=== PATIENT | female | born 1980 | race Caucasian/White ===

== ENCOUNTER → 2018-05-06 15:24 | Outpatient (CLI) | payer OTHER, SELFPAY ==
[2018-05-06 16:03] LABS: Add Manual Diff / Slide Review NO; Basophils Percent Auto 1.2 % (0-2); Hematocrit 38.4 % (36-46); Hemoglobin 13.1 g/dL (12.0-16.0); Lymphocytes Percent Auto 47.1 % (25-40); Mean Corpuscular Hemoglobin 31.4 PG (26-34); Mean Corpuscular Volume 92.2 fL (80-100); Monocytes Percent Auto 10.2 % (3-14); Neutrophils Absolute Auto 2400 /uL (3000-5900); Neutrophils Percent Auto 35.5 % (50-75); Platelet Count 313 X10^3/uL (150-400); Red Blood Cell Count 4.17 X10^6/uL (4.0-5.2); Red Cell Distribution Width 12.2 % (11.6-14.8); White Blood Cell Count 6.7 X10^3/uL (4.5-11.0)
[2018-05-06 16:42] LABS: BUN Creatinine Ratio 23.3 (6-22); Blood Urea Nitrogen 14 mg/dL (7-17); Calcium 9.2 mg/dL (8.4-10.2); Carbon Dioxide 32 mmol/L (22-32); Chloride 103 mmol/L (98-107); Estimated Glomerular Filt Rate > 60.0 mL/min (>60); Glucose 87 mg/dL (70-100); HEMOLYSIS < 15 (0-50); Potassium 4.1 mmol/L (3.4-5.1); Sodium 143 mmol/L (137-145)
[2018-05-06 17:11] LABS: TSH w/ Reflex to FT4 1.41 uIU/mL (0.47-4.68)
== END ==
PROVIDERS: PCP Internal Medicine; Visit Provider Nurse Practitioner Family
DX: L65.9 Nonscarring hair loss, unspecified (principal)
CPT/HCPCS: 36415; 80048; 84443; 85025

== ENCOUNTER → 2018-07-28 10:40 | Outpatient (CLI) | payer OTHER, SELFPAY ==
[2018-07-28 10:44] LABS: Bacteria Urine None Seen
[2018-07-28 11:46] LABS: Add Manual Diff / Slide Review NO; Basophils Percent Auto 1.1 % (0-2); Eosinophils Percent Auto 3.6 % (2-4); Hematocrit 38.8 % (36-46); Lymphocytes Percent Auto 44.3 % (25-40); Mean Corpuscular HGB Conc 33.6 % (30-36); Mean Corpuscular Hemoglobin 31.2 PG (26-34); Mean Corpuscular Volume 92.7 fL (80-100); Monocytes Percent Auto 9.4 % (3-14); Neutrophils Absolute Auto 2400 /uL (3000-5900); Neutrophils Percent Auto 41.6 % (50-75); Platelet Count 288 X10^3/uL (150-400); Red Blood Cell Count 4.19 X10^6/uL (4.0-5.2); Red Cell Distribution Width 11.9 % (11.6-14.8); White Blood Cell Count 5.7 X10^3/uL (4.5-11.0)
[2018-07-28 12:48] LABS: HCG Quantitative /Beta subunit 4291.3 mIU/mL
[2018-07-28 13:19] LABS: Appearance Urine UA CLEAR; Bilirubin Urine UA NEGATIVE (NEGATIVE); Color Urine UA YELLOW; Glucose Urine UA NEGATIVE (Normal); Ketones Urine UA NEGATIVE (NEGATIVE); Leukocyte Esterase Urine UA NEGATIVE (NEGATIVE); Nitrite Urine UA NEGATIVE (Negative); Occult Blood Urine UA TRACE-LYSED (Negative); Protein Urine UA NEGATIVE (Negative); Urobilinogen Urine UA 0.2 E.U./dL (0.2)
[2018-07-28 13:51] LABS: Amorphous Sediment Urine 1+; Calcium Oxalate Crystals Urine Few; Culture Indicated Urine Cult Not Indicated; RBC Urine 1-5/HPF (0-5/HPF); Squamous Epithelial Cell Urine 1-5 /HPF; WBC Urine 0-1/HPF (0-5/HPF)
== END ==
PROVIDERS: Nurse Practitioner Family; PCP Internal Medicine; Visit Provider Obstetrics & Gynecology
DX: N91.2 Amenorrhea, unspecified (principal); R30.0 Dysuria; D70.9 Neutropenia, unspecified
CPT/HCPCS: 36415; 81001; 84702; 85025

== ENCOUNTER → 2018-07-30 14:48 | Outpatient (CLI) | payer OTHER, SELFPAY ==
[2018-07-30 15:57] LABS: HCG Quantitative /Beta subunit 11451 mIU/mL
[2018-07-30 16:15] LABS: Ferritin 54.7 ng/mL (6.27-137)
== END ==
PROVIDERS: PCP Internal Medicine; Visit Provider Obstetrics & Gynecology
DX: L65.9 Nonscarring hair loss, unspecified (principal); N91.2 Amenorrhea, unspecified
CPT/HCPCS: 36415; 82728; 84702

== ENCOUNTER → 2018-08-18 16:12 | Outpatient (CLI) | payer OTHER, SELFPAY ==
[2018-08-18 17:02] LABS: Add Manual Diff / Slide Review NO; Basophils Percent Auto 0.5 % (0-2); Eosinophils Percent Auto 3.7 % (2-4); Hematocrit 38.1 % (36-46); Hemoglobin 13.2 g/dL (12.0-16.0); Lymphocytes Percent Auto 32.3 % (25-40); Mean Corpuscular HGB Conc 34.7 % (30-36); Mean Corpuscular Hemoglobin 31.6 PG (26-34); Mean Corpuscular Volume 91.1 fL (80-100); Monocytes Percent Auto 8.4 % (3-14); Neutrophils Absolute Auto 5700 /uL (3000-5900); Neutrophils Percent Auto 55.1 % (50-75); Platelet Count 328 X10^3/uL (150-400); Red Blood Cell Count 4.18 X10^6/uL (4.0-5.2); White Blood Cell Count 10.3 X10^3/uL (4.5-11.0)
[2018-08-18 17:48] LABS: Appearance Urine UA CLEAR; Bilirubin Urine UA NEGATIVE (NEGATIVE); Color Urine UA YELLOW; Glucose Urine UA NEGATIVE (Normal); Ketones Urine UA NEGATIVE (NEGATIVE); Leukocyte Esterase Urine UA NEGATIVE (NEGATIVE); Nitrite Urine UA NEGATIVE (Negative); Occult Blood Urine UA TRACE-LYSED (Negative); Protein Urine UA NEGATIVE (Negative); Urobilinogen Urine UA 0.2 E.U./dL (0.2); pH Urine UA 6.5 (4.5-8.0)
[2018-08-18 18:57] LABS: Hepatitis B Surface Antigen NEGATIVE s/c (NEGATIVE); Rubella Antibody IgG 64.7 IU/mL (>15)
[2018-08-18 19:07] LABS: HIV 1 and 2 Antibody NEGATIVE (NEGATIVE); Hep C Virus Ab w/Reflex Quant NEGATIVE s/c (NEGATIVE)
[2018-08-20 13:02] LABS: RPR Screen Nonreactive (Nonreactive)
[2018-08-20 14:17] LABS: HSV 2 IGG AB < 0.90 index (< 0.90); HSV1IGG < 0.90 index (< 0.90)
== END ==
PROVIDERS: PCP Internal Medicine; Visit Provider Obstetrics & Gynecology
DX: Z34.91 Encounter for supervision of normal pregnancy, unspecified, first trimester (principal)
CPT/HCPCS: 36415; 80055; 81003; 86695; 86696; 86703; 86787; 86803; 86850; 86900; 86901; 87086

== ENCOUNTER → 2018-09-03 16:49 | Outpatient (CLI) | payer OTHER, SELFPAY ==
[2018-09-16 11:09] LABS: Informaseq SEE SEPERATE REPORT
== END ==
PROVIDERS: PCP Internal Medicine; Visit Provider Obstetrics & Gynecology
DX: O09.529 Supervision of elderly multigravida, unspecified trimester (principal); O09.519 Supervision of elderly primigravida, unspecified trimester
CPT/HCPCS: 81507

== ENCOUNTER → 2018-10-29 12:54 | Outpatient (CLI) | payer OTHER, SELFPAY ==
[2018-11-05 11:25] LABS: AFP, Serum 55.6 ng/mL; Calc Gestational Age 18; Est Date Determined by US; Maternal Weight 128 lbs; Number of Fetuses NOT GIVEN; Prev Pregnancies Down Syndrome NOT GIVEN
== END ==
PROVIDERS: PCP Internal Medicine; Visit Provider Obstetrics & Gynecology
DX: Z34.02 Encounter for supervision of normal first pregnancy, second trimester (principal)
CPT/HCPCS: 36415; 82105

== ENCOUNTER → 2018-11-17 15:16 | Outpatient (CLI) | payer OTHER, SELFPAY ==
--- NOTE | 2018-11-17 15:17 | DI.US.S_ITS ---
PROCEDURE: US OB >= 14 WEEKS FETUS INDICATIONS: ANATOMY SURVEY OUTSIDE/PRIOR DATING DATA: Last menstrual period (LMP): Unknown. LMP-based estimated date of delivery (ARJUN): Unknown. First dating scan (date and location): 09/03/18. Estimated date of delivery (ARJUN) from first dating scan: 03/31/19. TECHNIQUE: Real-time scanning was performed of the fetus, with image documentation and biometric measurements. Endovaginal scanning: Not performed COMPARISON: [facility], , OB <= 14 WEEKS FETUS, 09/03/2018, 16:22. FINDINGS: General: A single living intrauterine gestation is present. Presentation: Breech. Placenta: Placental position is anterior, without previa. Amniotic fluid index: 14.7 cm, normal range is 5-24 cm. heart rate: 143 beats per minute. Maternal cervical canal: 3.8 cm long. Normal lower limit is 2.5 cm. biometrics: Biparietal diameter: 5.0 cm, 21 weeks zero days Head circumference: 18.6 cm, 20 weeks 6 days Abdominal circumference: 15.3 cm, 20 weeks 3 days Femur length: 3.4 cm, 20 weeks 6 days Estimated gestational age from initial scan: 20 weeks 6 days Composite gestational age from present scan: 20 weeks 6 days Estimated weight and percentile: 370 g, 35th percentile Measurement variability for biometric dating: +/- 7 days from 14 weeks to 15 weeks 6 days gestation, +/- 10 days from 16 weeks to 21 weeks 6 days gestation, +/- 2 weeks from 22 weeks to 27 weeks 6 days gestation, +/- 3 weeks for 28 weeks gestation or later. weight reference: 4500 g or EFW >90/95% is considered macrosomia or large for gestational age. EFW <10% is small for gestational age. EFW 5% or less is considered intra-uterine growth restriction. Anatomic survey: Neuro: Ventricles are non-dilated at less than 10 mm. Cisterna magna is normal at 3-11 mm. Cerebellum is normal in size and morphology. Nuchal skin fold: Normal at less than 6 mm between 14-21 weeks gestational age. Face: Nose and lips, facial profile are normal. Spine: No evidence for spina bifida. Heart: 4-chambered heart is present, with normal ventricular outflow tracts. Diaphragm: Diaphragm is intact. Stomach: Left-sided stomach is present. Kidneys: No hydronephrosis. Normal is less than 5 mm in 2nd trimester, less than 7 mm in 3rd trimester. Cord: 3-vessel cord has orthotopic insertion. Bladder: Normal in size. Extremities: All 4 extremities identified. IMPRESSION: Single living intrauterine fetus in breech presentation demonstrating expected interval growth. Normal anatomic survey. Dictated by: Cristino Vazquez M.D. on 11/17/2018 at 17:42 Approved by: Cristino Vazquez M.D. on 11/17/2018 at 17:45
== END ==
PROVIDERS: Family Provider Student in an Organized Health Care Education/Training Program; PCP Internal Medicine; Visit Provider Obstetrics & Gynecology
DX: Z34.02 Encounter for supervision of normal first pregnancy, second trimester (principal); Z3A.20 20 weeks gestation of pregnancy
CPT/HCPCS: 76811

== ENCOUNTER → 2018-12-19 16:28 | Outpatient (CLI) | payer OTHER, SELFPAY ==
[2018-12-19 18:01] LABS: Hematocrit 34.4 % (36-46); Hemoglobin 11.8 g/dL (12.0-16.0)
[2018-12-19 18:21] LABS: GTT (PREG) 1 Hour PP 50gm Dose 131 mg/dL (76-139)
== END ==
PROVIDERS: Family Provider Student in an Organized Health Care Education/Training Program; PCP Student in an Organized Health Care Education/Training Program; Visit Provider Obstetrics & Gynecology
DX: Z34.02 Encounter for supervision of normal first pregnancy, second trimester (principal)
CPT/HCPCS: 36415; 82950; 85014; 85018

== ENCOUNTER → 2019-02-26 15:49 | Outpatient (CLI) | payer BC, SELFPAY ==
[2019-02-27 13:57] LABS: Strep Grp B PCR NEG for Grp B Strep
== END ==
PROVIDERS: Family Provider Student in an Organized Health Care Education/Training Program; PCP Student in an Organized Health Care Education/Training Program; Visit Provider Obstetrics & Gynecology
DX: Z34.03 Encounter for supervision of normal first pregnancy, third trimester (principal); Z3A.35 35 weeks gestation of pregnancy
CPT/HCPCS: 87653

== ENCOUNTER → 2019-04-03 16:56 | Outpatient (CLI) | payer BC, SELFPAY | LOC: LAB 17:01 → OB 04-07 10:28 | PROVIDERS: Family Provider Student in an Organized Health Care Education/Training Program; PCP Student in an Organized Health Care Education/Training Program; Visit Provider Student in an Organized Health Care Education/Training Program | DX: O48.0 Post-term pregnancy (principal); Z3A.40 40 weeks gestation of pregnancy | CPT/HCPCS: 59025; G0378 ==

== ENCOUNTER 2019-04-05 23:26 | Outpatient (CLI) | payer BC, SELFPAY ==
[2019-04-06 01:34] VITALS: TEMP 37.1
[2019-04-06] MEDS: MORPHINE 4 MG/ML INJ IM (01:34)
== END 2019-04-06 01:40 | disposition home or self-care (01) ==
LOC: OB 04-07 10:30
PROVIDERS: Family Provider Student in an Organized Health Care Education/Training Program; PCP Student in an Organized Health Care Education/Training Program; Visit Provider Specialist
DX: O48.0 Post-term pregnancy (principal); Z3A.40 40 weeks gestation of pregnancy
CPT/HCPCS: 59025; 96372; G0378; G0379; J2270

== ENCOUNTER 2019-04-06 05:17 | Inpatient (IN) | payer BC, SELFPAY ==
[2019-04-06] MEDS: LACTATED RINGERS 1,000 ML 100 ML IV ×2 (05:30→09:50)
[2019-04-06 05:50] LABS: Add Manual Diff / Slide Review NO; Basophils Absolute Auto 100 /uL (0-100); Basophils Percent Auto 0.6 % (0-2); Eosinophils Absolute Auto 0 /uL (0-450); Eosinophils Percent Auto 0.1 % (2-4); Hematocrit 36.4 % (36-46); Hemoglobin 12.5 g/dL (12.0-16.0); Lymphocytes Absolute Auto 2100 /uL (1100-4500); Lymphocytes Percent Auto 14.3 % (25-40); Mean Corpuscular HGB Conc 34.3 % (30-36); Mean Corpuscular Hemoglobin 30.7 PG (26-34); Mean Corpuscular Volume 89.7 fL (80-100); Monocytes Absolute Auto 700 /uL (0-900); Monocytes Percent Auto 4.9 % (3-14); Neutrophils Absolute Auto 11500 /uL (1500-7000); Neutrophils Percent Auto 80.1 % (50-75); Platelet Count 273 X10^3/uL (150-400); Red Blood Cell Count 4.05 X10^6/uL (4.0-5.2); White Blood Cell Count 14.4 X10^3/uL (4.5-11.0)
[2019-04-06 08:18] VITALS: BP 118/70
--- NOTE | 2019-04-06 17:55 | P.HPOB_ITS ---
OB HPI Date/Time Date of admission: 04/06/19 Date Patient Seen: 04/06/19 Time Patient Seen: 07:00 History of Present Condition Chief complaint: Labor & Delivery : 1 Para: 0 Estimated Date of Delivery: 03/31/19 Estimated Gestational Age (weeks): 40+6 Narrative: Malina Barry is a 38 year old female 1 para 0 at 40 and 6 7th weeks gestation who presented in active labor History of Present care: good care, initiated at week # (10), number of visits (12) and pounds weight gain (32) Dating criteria: LMP confirmed by 1st trimester US Ultrasounds: normal 1st trimester US and normal mid trimester US Obstetrical complications: none Medical complications: none Preadmission Labs Blood type: O (+) positive -: Antibody screen: negative, GBS status: negative, HBsAG: negative, HIV: negative, HSV 1: negative, HSV 2: negative and RPR/VDLR: negative -: Chlamydia screen: not detected and Gonorrhea screen: not detected -: Rubella: immune and Varicella: immune HCT: 34.4 HCAB: negative PAP: Normal Cell-free DNA: Normal male Urine: Mixed 1 hr GTT: 131 Evaluation Evaluation Baseline heart rate: 125 Variability: Moderate (11-25) monitor accelerations: Present monitor decelerations: Absent Contraction Frequency (minutes): 3 Uterine Contraction Intensity: Strong/Firm Category of Tracing: I Cervical dilation (cm): 5 Cervical effacement (%): 100 station: -1 Laboratory results: Laboratory Tests 04/06/19 04/06/19 05:30 05:30 WBC 14.4 H RBC 4.05 Hgb 12.5 Hct 36.4 MCV 89.7 MCH 30.7 MCHC 34.3 RDW 13.0 Plt Count 273 Neut % (Auto) 80.1 H Lymph % (Auto) 14.3 L [place] % (Auto) 4.9 Eos % (Auto) 0.1 L Baso % (Auto) 0.6 Neut # (Auto) 05458 H Lymph # (Auto) 2100 [place] # (Auto) 700 Eos # (Auto) 0 Baso # (Auto) 100 Blood Type O Positive Antibody Screen Negative PFSH Social History Smoking Status: Never smoker Meds Home Medications Medication Instructions Recorded Confirmed Type Double Electric Breast Pump #1 each 03/13/19 04/06/19 Rx Allergies Allergy/AdvReac Type Severity Reaction Status Date / Time hazelnut Allergy Mild Swelling Verified 04/06/19 06:05 of Lip/Tongue/Throat nitrofurantoin Allergy Mild rash Verified 04/06/19 06:02 [From MACROBID] ciprofloxacin [From CIPRO] Allergy Unknown Verified 04/06/19 06:03 Exam Vital Signs (past 8 hours): Generally: Patient comfortable with epidural Fundal height: 40 cm Estimated weight: 7-1/2 to 8 lb Lungs: Clear to auscultation bilaterally Cardiovascular: Regular rate and rhythm Abdomen: No scars Extremities: Trace edema Objective Labs Result Diagrams: 04/06/19 05:30 Labs: Laboratory Results - last 24 hr 04/06/19 04/06/19 05:30 05:30 WBC 14.4 H RBC 4.05 Hgb 12.5 Hct 36.4 MCV 89.7 MCH 30.7 MCHC 34.3 RDW 13.0 Plt Count 273 Neut % (Auto) 80.1 H Lymph % (Auto) 14.3 L [place] % (Auto) 4.9 Eos % (Auto) 0.1 L Baso % (Auto) 0.6 Neut # (Auto) 19825 H Lymph # (Auto) 2100 [place] # (Auto) 700 Eos # (Auto) 0 Baso # (Auto) 100 Blood Type O Positive Antibody Screen Negative Assessment and Plan Assessment and Plan Assessment and Plan narrative: Assessment: 38-year-old 1 para 0 at 40 and 6 7th weeks gestation in active labor with an epidural for pain management Plan: Expected management to spontaneous vaginal delivery Artificial rupture of membranes when able Time Spent with Patient Total time spent with greater than 50% in coordination of care (as documented) at patient's floor/unit and/or counseling patient:: 15-24 minutes
--- NOTE | 2019-04-06 17:55 | PM.OBPRVD ---
Events: Meconium Stained Fluid (Moderate) Delivery date: 04/06/19 Intrapartal events: Prolonged 2nd Stage > 2.5 hours Cervical ripening method: none Induction method: none Delivery monitor: external FHT and external uterine Route of delivery: vacuum extraction Indication for instrumentation: other (Prolonged 2nd stage) Episiotomy description: None L&D Laceration Description: Perineal - 1st Degree and Superficial Delivery repair: chromic Estimated blood loss (mL): 150 Anesthesia type: Epidural Complications: None Narrative: Patient complete and pushed for 3 hours and 40 minutes. At 2:41 p.m., a live male infant was delivered with vacuum assistance over an intact perineum. A nuchal cord x1 was reduced on the perineum. The remainder of the body delivered without difficulty and was placed on mom's abdomen. After the cord stopped pulsing, the cord was double clamped and cut. The placenta delivered intact with a 3 vessel cord at 3:00 p.m.. The fundus was massaged to firm. 10 units of IM Pitocin was given. A right superficial labial laceration was repaired with 400 chromic with running interlocking suture. A first-degree perineal laceration was repaired with 2 0 chromic in the usual fashion. Hemostasis was achieved. Estimated blood loss 150 cc. Apgars 8 at 1 minute and 9 at 5 minutes. Weight 8 lb 2 oz. Epidural analgesia. . Mom and infant stable to recovery. Plan for aftercare: To routine care
[2019-04-06] MEDS: IBUPROFEN 600 MG TABLET PO (18:10)
[2019-04-06] MEDS: LANOLIN OINT 7 GM 1 APPLIC TOP (20:30)
[2019-04-06] MEDS: DERMOPLAST SPRAY 20% 60 ML 1 SPRAY TOP (20:31)
[2019-04-07] MEDS: IBUPROFEN 600 MG TABLET PO ×2 (03:04→10:28)
[2019-04-07 06:50] LABS: Hematocrit 30.1 % (36-46); Hemoglobin 10.1 g/dL (12.0-16.0)
[2019-04-07] MEDS: DOCUSATE 250 MG CAPSULE PO (10:29)
[2019-04-07 14:02] VITALS: BP 118/70; PULSE 76; RESP 16; TEMP 36.7
[2019-04-07 18:09] VITALS: BP 118/70; PULSE 76; RESP 16; TEMP 36.7
--- NOTE | 2019-04-07 18:09 | P.DS_ITS ---
History of Present Illness Date Patient Seen: 04/07/19 Time Patient Seen: 13:30 Chief complaint: Labor & Delivery Narrative: Patient is a 38-year-old 1 para 1 day # 1 status post vacuum assisted vaginal delivery. going well. Bleeding tapering. Pain well controlled with ibuprofen. Discharge Providers Date of admission: 04/06/19 05:17 Discharge Date: 04/07/19 Primary care physician: Emerson Marquez MD Consults: 04/06/19 15:52 Consult to Drug Regulatory Affairs Specialist Routine Comment: Discharge provider: Merline Sanchez MD Summary Discharge Diagnosis: 40 weeks gestation Vacuum assisted vaginal delivery Hospital Course: Patient is a 38-year-old 1 para 1 who presented in active labor. She progressed and received an epidural for pain management. She had a vacuum assisted delivery due to deep variable decelerations with pushing. Her course was unremarkable and she was discharged home on day # 1. Status at Discharge Cognitive/behavioral status at discharge: oriented Functional status at discharge: independent ambulation Overall status at discharge: patient is progressing back to baseline Time Spent with Patient Less than 30 minutes Exam Vital Signs (past 8 hours): - 04/07/19 14:02 Temperature 98.1 F Pulse Rate 76 Respiratory Rate 16 Blood Pressure 118/70 Narrative Exam Narrative: Generally: Patient is sitting up in bed, holding infant Fundus: Firm at U -1 Extremities: Negative Homans, trace edema Objective Labs Result Diagrams: 04/07/19 06:36 Labs: Laboratory Results - last 24 hr 04/07/19 06:36 Hgb 10.1 L Hct 30.1 L Discharge Plan Discharge Plan Patient Disposition: Home Discharge comment: Call with fever, chills or bleeding vaginally more than a pad in an hour Discharge Med Rec/Prescriptions Prescriptions: Continued Double Electric Breast Pump .ROUTE .MEDSUPPLY Qty: 1 RF: 0 Follow up/Referrals: Merline Sanchez MD [Physician] - 6 Weeks Provider Discharge Instructions Diet: Regular Activity: No intercourse Skin/Wound/Dressing Care Report to your healthcare provider any signs of infection, such as:: chills, fever, increased pain and unusual drainage Visit Report/Discharge Packet Instructions: DI for Labor and Delivery, Vaginal Discharge Data Primary Care Provider: Emerson Marquez Attending Provider: Merline Sanchez Admit Date/Time: 04/06/19 05:17
== END 2019-04-07 17:50 | disposition home or self-care (01) | DRG 807 ==
PROVIDERS: Admitting Provider Obstetrics & Gynecology; Family Provider Student in an Organized Health Care Education/Training Program; PCP Student in an Organized Health Care Education/Training Program; Visit Provider Obstetrics & Gynecology
DX: O69.81X0 Labor and delivery complicated by cord around neck, without compression, not applicable or unspecified (principal); Z37.0 Single live birth; O70.0 First degree perineal laceration during delivery; Z3A.40 40 weeks gestation of pregnancy; O77.0 Labor and delivery complicated by meconium in amniotic fluid
CPT/HCPCS: 01967; 36415; 59050; 59400; 76815; 85014; 85018; 85025; 86850; 86900; 86901; G0379

== ENCOUNTER → 2020-07-08 09:44 | Outpatient (CLI) | payer BC, SELFPAY ==
[2020-07-08 10:28] LABS: Add Manual Diff / Slide Review NO; Basophils Absolute Auto 100 /uL (0-100); Basophils Percent Auto 0.5 % (0-2); Eosinophils Absolute Auto 300 /uL (0-450); Eosinophils Percent Auto 2.6 % (2-4); Hematocrit 38.5 % (36-46); Lymphocytes Absolute Auto 2600 /uL (1100-4500); Lymphocytes Percent Auto 25.7 % (25-40); Mean Corpuscular HGB Conc 33.7 % (30-36); Mean Corpuscular Volume 92.1 fL (80-100); Monocytes Absolute Auto 800 /uL (0-900); Monocytes Percent Auto 7.7 % (3-14); Neutrophils Absolute Auto 6400 /uL (1500-7000); Neutrophils Percent Auto 63.5 % (50-75); Platelet Count 368 X10^3/uL (150-400); Red Blood Cell Count 4.18 X10^6/uL (4.0-5.2); Red Cell Distribution Width 12.3 % (11.6-14.8); White Blood Cell Count 10.1 X10^3/uL (4.5-11.0)
[2020-07-08 11:44] LABS: Appearance Urine UA CLEAR; Bilirubin Urine UA NEGATIVE (NEGATIVE); Color Urine UA YELLOW; Glucose Urine UA NEGATIVE (Negative); Ketones Urine UA NEGATIVE (NEGATIVE); Leukocyte Esterase Urine UA NEGATIVE (NEGATIVE); Nitrite Urine UA NEGATIVE (Negative); Occult Blood Urine UA TRACE-INTACT (Negative); Protein Urine UA NEGATIVE (Negative); Urobilinogen Urine UA 0.2 E.U./dL (0.2); pH Urine UA 6.5 (4.5-8.0)
[2020-07-08 15:52] LABS: Hepatitis B Surface Antigen NEGATIVE s/c (NEGATIVE); Rubella Antibody IgG 47.4 IU/mL (>15)
[2020-07-08 16:08] LABS: HIV 1 & 2 Ab/Ag 4th Gen Combo NEGATIVE (NEGATIVE); Hep C Virus Ab w/Reflex Quant NEGATIVE s/c (NEGATIVE)
[2020-07-09 07:18] LABS: RPR Screen Non Reactive (Non Reactive); Varicella IgG Antibody >4000 index (Immune >165)
== END ==
PROVIDERS: Family Provider Student in an Organized Health Care Education/Training Program; PCP Student in an Organized Health Care Education/Training Program; Referring Provider Obstetrics & Gynecology; Visit Provider Obstetrics & Gynecology
DX: O09.521 Supervision of elderly multigravida, first trimester (principal); Z36.0 Encounter for antenatal screening for chromosomal anomalies
CPT/HCPCS: 36415; 80055; 81003; 81420; 86787; 86803; 86850; 86900; 86901; 87077; 87086; 87389

== ENCOUNTER → 2020-07-20 15:37 | Outpatient (CLI) | payer BC, SELFPAY ==
[2020-07-20 21:18] LABS: Urine N gonorrhoeae NOT DETECTED
[2020-07-20 21:19] LABS: Urine Chlamydia NOT DETECTED
== END ==
PROVIDERS: Family Provider Student in an Organized Health Care Education/Training Program; PCP Student in an Organized Health Care Education/Training Program; Visit Provider Obstetrics & Gynecology
DX: Z34.81 Encounter for supervision of other normal pregnancy, first trimester (principal); Z3A.11 11 weeks gestation of pregnancy
CPT/HCPCS: 87491; 87591

== ENCOUNTER → 2020-08-17 14:56 | Outpatient (CLI) | payer BC, SELFPAY ==
[2020-08-20 20:07] LABS: AFP Value 35.1 ng/mL (.); Gest Age on Col Date 23.9 weeks (.); Gestational Age Ultrasound (.); Insulin Dep Diabetes No (.); OSBR Risk 1IN 10000 (.); Results Report (.); Test Results *Screen Negative* (.)
== END ==
PROVIDERS: Family Provider Student in an Organized Health Care Education/Training Program; PCP Student in an Organized Health Care Education/Training Program; Referring Provider Obstetrics & Gynecology; Visit Provider Obstetrics & Gynecology
DX: Z34.82 Encounter for supervision of other normal pregnancy, second trimester (principal); Z3A.16 16 weeks gestation of pregnancy
CPT/HCPCS: 36415; 82105

== ENCOUNTER → 2020-09-15 14:32 | Outpatient (CLI) | payer BC, SELFPAY ==
--- NOTE | 2020-09-15 14:33 | DI.US.S_ITS ---
PROCEDURE: US OB >= 14 WEEKS FETUS INDICATIONS: Anatomy scan OUTSIDE/PRIOR DATING DATA: Last menstrual period (LMP): 04/25/20 . LMP-based estimated date of delivery (ARJUN): 01/30/21 . First dating scan (date and location): 06/22/20, by Dr. Sanchez . Estimated date of delivery (ARJUN) from first dating scan: 02/04/21 +/-5 days . TECHNIQUE: Real-time scanning was performed of the fetus, with image documentation and biometric measurements. Endovaginal scanning: Not needed. COMPARISON: [facility], , OB >= 14 WEEKS FETUS, 04/06/2019, 10:45. [facility], , OB >= 14 WEEKS FETUS, 04/03/2019, 16:31. FINDINGS: General: A single living intrauterine gestation is present. Presentation: Breech. Placenta: Placental position is posterior , without previa. Amniotic fluid index: 11.0 cm, normal range is 5-24 cm. heart rate: 140 beats per minute. Maternal cervical canal: 4.6 cm long. Normal lower limit is 2.5 cm. biometrics: Biparietal diameter: 4.8 cm, 20 weeks 3 days Head circumference: 18.1 cm, 20 weeks 4 days Abdominal circumference: 15.4 cm, 20 weeks 4 days Femur length: 3.7 cm, 21 weeks 4 days. Estimated gestational age from initial scan: 19 weeks 5 days Composite gestational age from present scan: 20 weeks 6 days Estimated weight and percentile: 392 g, 98th percentile Measurement variability for biometric dating: +/- 7 days from 14 weeks to 15 weeks 6 days gestation, +/- 10 days from 16 weeks to 21 weeks 6 days gestation, +/- 2 weeks from 22 weeks to 27 weeks 6 days gestation, +/- 3 weeks for 28 weeks gestation or later. weight reference: 4500 g or EFW >90/95% is considered macrosomia or large for gestational age. EFW <10% is small for gestational age. EFW 5% or less is considered intra-uterine growth restriction. Anatomic survey: Neuro: Ventricles are non-dilated at less than 10 mm. Cisterna magna is normal at 3-11 mm. Cerebellum is normal in size and morphology. Nuchal skin fold: Normal at less than 6 mm between 14-21 weeks gestational age. Face: Nose and lips, facial profile are normal. Spine: No evidence for spina bifida. Heart: 4-chambered heart is present, with normal ventricular outflow tracts. Diaphragm: Diaphragm is intact. Stomach: Left-sided stomach is present. Kidneys: No hydronephrosis. Normal is less than 5 mm in 2nd trimester, less than 7 mm in 3rd trimester. Cord: 3-vessel cord has orthotopic insertion. Bladder: Normal in size. Extremities: All 4 extremities identified. IMPRESSION: Single living intrauterine gestation with normal survey of anatomy and the delivery date is projected to be centered on 02/04/21, +/-5 days, based on the 1st OB ultrasound performed by Dr. Sanchez. Note is made that the current weight is at the upper 98th percentile, with a significant variability based on the early measurements at this time. Follow-up for abnormal weight is recommended in approximately 3 weeks to include biometry. Early macrosomia may be present. Dictated by: Chris Patel M.D. on 09/15/2020 at 17:06 Approved by: Chris Patel M.D. on 09/15/2020 at 17:10
== END ==
PROVIDERS: Family Provider Student in an Organized Health Care Education/Training Program; PCP Student in an Organized Health Care Education/Training Program; Referring Provider Obstetrics & Gynecology; Visit Provider Obstetrics & Gynecology
DX: Z34.82 Encounter for supervision of other normal pregnancy, second trimester (principal); Z3A.20 20 weeks gestation of pregnancy
CPT/HCPCS: 76811

== ENCOUNTER → 2020-09-19 15:58 | Outpatient (CLI) | payer BC, SELFPAY ==
[2020-09-19 16:46] LABS: Add Manual Diff / Slide Review NO; Basophils Absolute Auto 100 /uL (0-100); Basophils Percent Auto 0.7 % (0-2); Eosinophils Absolute Auto 300 /uL (0-450); Eosinophils Percent Auto 3.2 % (2-4); Hematocrit 37.6 % (36-46); Hemoglobin 12.4 g/dL (12.0-16.0); Lymphocytes Absolute Auto 2300 /uL (1100-4500); Lymphocytes Percent Auto 23.5 % (25-40); Mean Corpuscular HGB Conc 32.9 % (30-36); Mean Corpuscular Hemoglobin 30.7 PG (26-34); Mean Corpuscular Volume 93.2 fL (80-100); Monocytes Absolute Auto 900 /uL (0-900); Monocytes Percent Auto 9.6 % (3-14); Neutrophils Absolute Auto 6200 /uL (1500-7000); Platelet Count 320 X10^3/uL (150-400); Red Blood Cell Count 4.04 X10^6/uL (4.0-5.2); Red Cell Distribution Width 12.3 % (11.6-14.8); White Blood Cell Count 9.8 X10^3/uL (4.5-11.0)
== END ==
PROVIDERS: Family Provider Student in an Organized Health Care Education/Training Program; PCP Student in an Organized Health Care Education/Training Program; Referring Provider Obstetrics & Gynecology; Visit Provider Obstetrics & Gynecology
DX: Z34.90 Encounter for supervision of normal pregnancy, unspecified, unspecified trimester (principal)
CPT/HCPCS: 36415; 85025

== ENCOUNTER → 2020-09-24 08:30 | Outpatient (CLI) | payer BC, SELFPAY ==
[2020-09-24 09:48] LABS: Glucose 89 mg/dL (70-100)
[2020-09-24 10:01] LABS: Free T4, Direct Thyroxine 0.96 ng/dL (0.78-2.19)
[2020-09-24 10:15] LABS: Thyroid Stimulating Hormone 1.47 uIU/mL (0.47-4.68)
== END ==
PROVIDERS: Family Provider Student in an Organized Health Care Education/Training Program; PCP Student in an Organized Health Care Education/Training Program; Referring Provider Obstetrics & Gynecology; Visit Provider Obstetrics & Gynecology
DX: Z34.90 Encounter for supervision of normal pregnancy, unspecified, unspecified trimester (principal); R53.83 Other fatigue; R63.1 Polydipsia
CPT/HCPCS: 36415; 82947; 84439; 84443

== ENCOUNTER → 2020-10-24 09:13 | Outpatient (CLI) | payer BC, SELFPAY ==
[2020-10-24 11:37] LABS: GTT (PREG) 1 Hour PP 50gm Dose 132 mg/dL (76-139); Hematocrit 35.5 % (36-46); Hemoglobin 12.1 g/dL (12.0-16.0)
== END ==
PROVIDERS: Family Provider Student in an Organized Health Care Education/Training Program; PCP Student in an Organized Health Care Education/Training Program; Referring Provider Obstetrics & Gynecology; Visit Provider Obstetrics & Gynecology
DX: Z34.90 Encounter for supervision of normal pregnancy, unspecified, unspecified trimester (principal); Z3A.26 26 weeks gestation of pregnancy
CPT/HCPCS: 36415; 82950; 85014; 85018

== ENCOUNTER → 2020-11-29 12:05 | Outpatient (CLI) | payer BC, SELFPAY ==
[2020-11-29] MEDS: COVID-19 VACC #1, MRNA(MOD) 100 MCG/0.5 ML VIAL IM (12:11)
== END ==
PROVIDERS: Family Provider Student in an Organized Health Care Education/Training Program; PCP Student in an Organized Health Care Education/Training Program; Visit Provider Internal Medicine
DX: Z23 Encounter for immunization (principal)
CPT/HCPCS: 0011A; 91301

== ENCOUNTER → 2020-12-24 12:44 | Outpatient (CLI) | payer BC, SELFPAY ==
[2020-12-24 12:55] LABS: Bacteria Urine None Seen; RBC Urine None Seen (0-5/HPF); WBC Urine None Seen (0-5/HPF)
[2020-12-24 13:06] LABS: Appearance Urine UA CLEAR; Bilirubin Urine UA NEGATIVE (NEGATIVE); Color Urine UA YELLOW; Glucose Urine UA NEGATIVE (Negative); Ketones Urine UA NEGATIVE (NEGATIVE); Leukocyte Esterase Urine UA NEGATIVE (NEGATIVE); Nitrite Urine UA NEGATIVE (Negative); Occult Blood Urine UA NEGATIVE (Negative); Protein Urine UA NEGATIVE (Negative); Urobilinogen Urine UA 0.2 E.U./dL (0.2)
[2020-12-24 13:19] LABS: Culture Indicated Urine Cult Not Indicated; Squamous Epithelial Cell Urine 5-10 /HPF (0-5/HPF)
== END ==
PROVIDERS: Family Provider Student in an Organized Health Care Education/Training Program; PCP Student in an Organized Health Care Education/Training Program; Referring Provider Obstetrics & Gynecology; Visit Provider Obstetrics & Gynecology
DX: O26.899 Other specified pregnancy related conditions, unspecified trimester (principal); R30.0 Dysuria; R82.90 Unspecified abnormal findings in urine
CPT/HCPCS: 81001

== ENCOUNTER → 2020-12-28 12:18 | Outpatient (CLI) | payer BC, SELFPAY ==
[2020-12-28] MEDS: COVID-19 VACC #2, MRNA(MOD) 100 MCG/0.5 ML VIAL IM (12:32)
== END ==
PROVIDERS: Family Provider Student in an Organized Health Care Education/Training Program; PCP Student in an Organized Health Care Education/Training Program; Visit Provider Internal Medicine
DX: Z23 Encounter for immunization (principal)
CPT/HCPCS: 0012A; 91301

== ENCOUNTER 2020-12-28 13:56 | Outpatient (CLI) | payer BC, SELFPAY | END 2020-12-28 14:43 | disposition home or self-care (01) | LOC: LABOR 14:07 → OB 16:23 | PROVIDERS: Family Provider Student in an Organized Health Care Education/Training Program; PCP Student in an Organized Health Care Education/Training Program; Referring Provider Obstetrics & Gynecology; Visit Provider Obstetrics & Gynecology | DX: Z34.83 Encounter for supervision of other normal pregnancy, third trimester (principal); Z3A.35 35 weeks gestation of pregnancy | CPT/HCPCS: 59025; 87653; G0378; G0379 ==

== ENCOUNTER → 2020-12-28 15:43 | Outpatient (CLI) | payer BC, SELFPAY ==
[2020-12-29 14:56] LABS: Strep Grp B PCR NEG for Grp B Strep
== END ==
PROVIDERS: Family Provider Student in an Organized Health Care Education/Training Program; PCP Student in an Organized Health Care Education/Training Program; Visit Provider Obstetrics & Gynecology
DX: Z34.83 Encounter for supervision of other normal pregnancy, third trimester (principal); Z3A.35 35 weeks gestation of pregnancy
CPT/HCPCS: 87653

== ENCOUNTER 2021-01-02 12:01 | Observation (INO) | payer BC, SELFPAY ==
--- NOTE | 2021-01-03 06:38 | PM.OBTRLD ---
Visit Information Visit Information Date of evaluation: 01/02/21 Primary OB Provider: Merline Sanchez Reason for Evaluation: Yes pre-term labor [facility] Medical History (Updated 08/17/20 @ 14:54 by Merline Sanchez MD) Chicken pox (1988) Essential thrombocytosis Keratosis pilaris (~2011) Migraines (~2011) Mononucleosis (~1997) Thrombocytopenia UTI (urinary tract infection) (~2012) Surgical History Anesthesia History of third molar tooth extraction (1999) History of tonsillectomy (1987) Family History (Updated 06/15/20 @ 16:14 by Bushra Arzola RN) Father Age: 65 Hypertension High cholesterol Diabetes mellitus History of anesthesia reaction Grandfather Age: 86 Hypertension High cholesterol Arthritis Cancer Mother Age: 63 Hypertension High cholesterol Diabetes mellitus Grandmother Age: 88 Hypertension High cholesterol Diabetes mellitus Alzheimer's disease Brother Hypertension Grandmother Alzheimer's disease Grandfather Glaucoma Social History marital status: Smoking Status: Never smoker Evaluation Evaluation Baseline heart rate: 130 Variability: Moderate (11-25) monitor accelerations: Present Monitor Decelerations: Absent Contraction Frequency (minutes): 15 Uterine Contraction Intensity: Mild Category of Tracing: Reactive Diagnosis, Plan/Disposition Plan/Disposition Plan: Assessment: 36 wks, not in labor Plan: Home, take it easy, push fluids
== END 2021-01-02 13:30 | disposition home or self-care (01) ==
PROVIDERS: Admitting Provider Obstetrics & Gynecology; Family Provider Student in an Organized Health Care Education/Training Program; PCP Student in an Organized Health Care Education/Training Program; Referring Provider Obstetrics & Gynecology; Visit Provider Obstetrics & Gynecology
DX: O47.03 False labor before 37 completed weeks of gestation, third trimester (principal); O09.523 Supervision of elderly multigravida, third trimester; Z3A.36 36 weeks gestation of pregnancy
CPT/HCPCS: 59025; G0378; G0379

== ENCOUNTER 2021-01-25 14:35 | Outpatient (CLI) | payer BC, SELFPAY | END 2021-01-25 15:28 | disposition home or self-care (01) | LOC: LABOR 14:42 → OB 01-26 07:17 | PROVIDERS: Family Provider Student in an Organized Health Care Education/Training Program; PCP Student in an Organized Health Care Education/Training Program; Referring Provider Obstetrics & Gynecology; Visit Provider Obstetrics & Gynecology | DX: O26.893 Other specified pregnancy related conditions, third trimester (principal); R06.02 Shortness of breath; O09.523 Supervision of elderly multigravida, third trimester; Z3A.39 39 weeks gestation of pregnancy | CPT/HCPCS: 59025; G0378; G0379 ==

== ENCOUNTER 2021-01-26 02:34 | Inpatient (IN) | payer BC, SELFPAY ==
[2021-01-26 03:40] LABS: COVID19 -Nasal RAPID Negative (Negative)
[2021-01-26 04:01] LABS: Add Manual Diff / Slide Review NO; Basophils Absolute Auto 100 /uL (0-100); Basophils Percent Auto 0.7 % (0-2); Eosinophils Absolute Auto 200 /uL (0-450); Eosinophils Percent Auto 1.5 % (2-4); Hematocrit 38.8 % (36-46); Hemoglobin 12.8 g/dL (12.0-16.0); Lymphocytes Absolute Auto 4000 /uL (1100-4500); Lymphocytes Percent Auto 29.1 % (25-40); Mean Corpuscular HGB Conc 32.8 % (30-36); Mean Corpuscular Hemoglobin 29.6 PG (26-34); Mean Corpuscular Volume 90.1 fL (80-100); Monocytes Absolute Auto 1200 /uL (0-900); Monocytes Percent Auto 8.8 % (3-14); Neutrophils Absolute Auto 8300 /uL (1500-7000); Neutrophils Percent Auto 59.9 % (50-75); Platelet Count 271 X10^3/uL (150-400); Red Blood Cell Count 4.31 X10^6/uL (4.0-5.2); Red Cell Distribution Width 13.3 % (11.6-14.8); White Blood Cell Count 13.9 X10^3/uL (4.5-11.0)
[2021-01-26] MEDS: fentaNYL 100 MCG/2 ML INJ IV (04:42)
--- NOTE | 2021-01-26 07:48 | P.HPOB_ITS ---
OB HPI Date/Time Date of admission: 01/26/21 Date Patient Seen: 01/26/21 Time Patient Seen: 06:40 History of Present Condition Chief complaint: maternity : 2 Para: 2 Estimated Date of Delivery: 01/30/21 Estimated Gestational Age (weeks): 39+4 Narrative: Malina Barry is a 40 year old female 2 para 1 at 39-,3/7 weeks gestation who presented with spontaneous rupture of membranes early this morning. She progressed quickly in active labor History of Present care: good care, initiated at week # (8), number of visits (12) and pounds weight gain (41) Dating criteria: LMP confirmed by 1st trimester US Ultrasounds: normal 1st trimester US and normal mid trimester US Obstetrical complications: none Medical complications: none Preadmission Labs Blood type: O (+) positive -: Antibody screen: negative, GBS status: negative, HBsAG: negative, HIV: negative and RPR/VDLR: negative -: Chlamydia screen: not detected and Gonorrhea screen: not detected -: Rubella: immune and Varicella: immune HCT: 38.8 HCAB: reactive PAP: Normal (2018) Cell-free DNA: Normal male Urine: Negative 1 hr GTT: 132 Prior (ies) History: VAVD after prolonged 2nd stage of labor Evaluation Evaluation Baseline heart rate: 125 Variability: Moderate (11-25) monitor accelerations: Absent Monitor Decelerations: Variable Contraction Frequency (minutes): 2 Uterine Contraction Intensity: Strong/Firm Status: Category l Cervical dilation (cm): 10 Cervical effacement (%): 100 station: +3 Laboratory results: Laboratory Tests 01/26/21 01/26/21 01/26/21 03:10 03:40 03:40 WBC 13.9 H RBC 4.31 Hgb 12.8 Hct 38.8 MCV 90.1 MCH 29.6 MCHC 32.8 RDW 13.3 Plt Count 271 Neut % (Auto) 59.9 Lymph % (Auto) 29.1 [place] % (Auto) 8.8 Eos % (Auto) 1.5 L Baso % (Auto) 0.7 Neut # (Auto) 8300 H Lymph # (Auto) 4000 [place] # (Auto) 1200 H Eos # (Auto) 200 Baso # (Auto) 100 SARS-CoV-2 (PCR) Negative Blood Type O Positive Antibody Screen Negative Non-invasive Membranes Rupture Test: positive [facility] Medical History (Updated 01/09/21 @ 15:43 by Merline Sanchez MD) Chicken pox (1988) Essential thrombocytosis Keratosis pilaris (~2011) Migraines (~2011) Mononucleosis (~1997) Thrombocytopenia UTI (urinary tract infection) (~2012) Surgical History Anesthesia History of third molar tooth extraction (1999) History of tonsillectomy (1987) Family History (Updated 06/15/20 @ 16:14 by Bushra Arzola RN) Father Age: 65 Hypertension High cholesterol Diabetes mellitus History of anesthesia reaction Grandfather Age: 86 Hypertension High cholesterol Arthritis Cancer Mother Age: 63 Hypertension High cholesterol Diabetes mellitus Grandmother Age: 88 Hypertension High cholesterol Diabetes mellitus Alzheimer's disease Brother Hypertension Grandmother Alzheimer's disease Grandfather Glaucoma Social History marital status: Smoking Status: Never smoker Meds Home Medications and Allergies Home Medications Medication Instructions Recorded Confirmed Type prenat.vits,percy,nox-solo-ikrxh 1 tab PO DAILY 06/22/20 01/26/21 History pantoprazole 20 mg tablet,delayed 20 mg PO DAILY #30 tab 12/05/20 01/26/21 Rx release Allergies Allergy/AdvReac Type Severity Reaction Status Date / Time ciprofloxacin [From CIPRO] Allergy Mild Lip Verified 01/26/21 04:25 tingling. hazelnut Allergy Mild Swelling Verified 01/26/21 04:25 of Lip/Tongue/Throat nitrofurantoin Allergy Mild Hives/rash Verified 01/26/21 04:25 [From MACROBID] Exam Vital Signs (past 8 hours): Generally: Patient comfortable with epidural Lungs: Clear to auscultation bilaterally Cardiovascular: Regular rate and rhythm Fundal height: 40 cm Estimated weight: 8-1/2 lb Extremities: No edema Objective Labs Result Diagrams: 01/26/21 03:40 Labs: Laboratory Results - last 24 hr 01/26/21 01/26/21 01/26/21 03:10 03:40 03:40 WBC 13.9 H RBC 4.31 Hgb 12.8 Hct 38.8 MCV 90.1 MCH 29.6 MCHC 32.8 RDW 13.3 Plt Count 271 Neut % (Auto) 59.9 Lymph % (Auto) 29.1 [place] % (Auto) 8.8 Eos % (Auto) 1.5 L Baso % (Auto) 0.7 Neut # (Auto) 8300 H Lymph # (Auto) 4000 [place] # (Auto) 1200 H Eos # (Auto) 200 Baso # (Auto) 100 SARS-CoV-2 (PCR) Negative Blood Type O Positive Antibody Screen Negative Assessment and Plan Assessment and Plan Assessment and Plan narrative: Assessment: 40-year-old 2 para 1001 at 39-,3/7 weeks gestation in active labor, entering 2nd stage Plan: Expectant management to spontaneous vaginal delivery Time Spent with Patient Total time spent with greater than 50% in coordination of care (as documented) a t patient's floor/unit and/or counseling patient:: 25 - 35 minutes
--- NOTE | 2021-01-26 07:55 | P.PCNOB_ITS ---
Labor & Delivery Delivery date: 01/26/21 Intrapartal Events: Deceleration (Variable) Cervical ripening method: none Induction method: none Delivery monitor: external FHT and external uterine Route of delivery: Episiotomy description: None L&D Laceration Description: Perineal - 1st Degree and Vaginal - 1st Degree Delivery repair: chromic Estimated blood loss (mL): 150 Anesthesia Type: Epidural Complications: None Narrative: Patient was complete at 6:55 a.m.. She pushed for 17 minutes. At 7:12 a.m., a live male delivered spontaneously in the LUIZA presentation, over an intact perineum. No nuchal cord. The remainder of the body delivered with a little bit of difficulty as the shoulders were broad. The was placed on mom's abdomen. The cord was double clamped and cut, after it stopped pulsing. Cord bloods were obtained. The placenta delivered intact with a three-vessel cord at 7:23 a.m.. Pitocin was given in the IV fluids after the cord bloods were obtained. The fundus was massaged to firm. There was a first- degree vaginal/perineal laceration which was repaired in the usual fashion with 3-0 chromic. Estimated blood loss 150 cc. Apgars 7 at 1 minute and 9 at 5 minutes. Epidural analgesia. . Mom and infant stable to recovery. Weight: 8# 4.2oz. Baby 1: Infant gender: Male Presentation: vertex Position: Right Occiput Anterior Placenta delivery description: Spontaneous Cord Vessel Description: 3 Vessels and Around Extremity x1 (right foot) score (1 min): 7 score (5 min): 9 Plan for aftercare: Routine care
[2021-01-26 08:04] VITALS: BP 108/68
[2021-01-26] MEDS: IBUPROFEN 600 MG TABLET PO ×2 (11:21→21:18)
[2021-01-26 13:45] VITALS: BP 138/68; PULSE 80; RESP 16; TEMP 36.3
[2021-01-26 13:48] VITALS: BP 124/83
[2021-01-26] MEDS: DERMOPLAST SPRAY 20% 60 ML 1 SPRAY TOP (22:13)
[2021-01-27] MEDS: IBUPROFEN 600 MG TABLET PO ×2 (03:34→10:01)
[2021-01-27 08:28] LABS: Hemoglobin 11.7 g/dL (12.0-16.0)
[2021-01-27] MEDS: DOCUSATE 100 MG CAPSULE PO (10:01)
--- NOTE | 2021-01-27 10:51 | PM.OBDS.1 ---
Discharge Providers Provider Date of admission: 01/26/21 02:34 Discharge Date: 01/27/21 Primary care physician: Emerson Marquez MD Consults: 01/26/21 03:19 Consult to Anesthesiology Urgent Comment: Consulting Provider: Luis Valiente Reason for consultation: pain control for labor 01/27/21 08:00 Consult to Radiation Oncology Manager Routine Comment: Discharge provider: Merline Sanchez MD Summary Hospital Course Date Patient Seen: 01/27/21 Time Patient Seen: 10:51 Diagnoses: 39-,4/7 weeks gestation Spontaneous vaginal delivery Epidural analgesia First-degree laceration and repair Hospital Course: Patient is a 40-year-old 2 para 2 who presented in active labor on January 26, 2021. She progressed in active labor. She received an epidural for pain management. She had a spontaneous vaginal delivery without complication. She had a first-degree laceration that was repaired. Her course unremarkable. She is discharged home on day # 1 Peripartum Data Infant Delivery Method: Natural Vaginal Laceration Description: Perineal - 1st Degree and Vaginal - 1st Degree Episiotomy description: None Procedures: Epidural analgesia Spontaneous vaginal delivery First-degree laceration and repair complications: none 1: Gender: Male Disposition of : home Status at Discharge Cognitive/behavioral status at discharge: oriented Functional status at discharge: independent ambulation Overall status at discharge: patient is progressing back to baseline Time Spent with Patient Time attestation: Total time spent providing and/or coordinating discharge services: Time spent: Less than 30 minutes Objective Labs Result Diagrams: 01/27/21 08:15 Labs: Laboratory Results - last 24 hr 01/27/21 08:15 Hgb 11.7 L Hct 35.0 L Exam Vital Signs (past 8 hours): Generally: Patient walking around and room, holding , no acute distress Fundus: Firm at U -1 Extremities: Negative Homans, no edema Discharge Plan Discharge Plan Patient Disposition: Home Provider Discharge Comment: Call with fever, chills, or bleeding vaginally more than a pad in an hour Ibuprofen 600 mg every 6 hours as needed for cramping Discharge orders & Medications Prescriptions: Continued prenat.vits,percy,rhf-tanu-keuag Tablet 1 tab PO DAILY RF: 0 Discontinued pantoprazole [Protonix] 20 mg tablet,delayed release (DR/EC) 20 mg PO DAILY Qty: 30 RF: 3 Follow up/Referrals: Merline Sanchez MD [Physician] - 6 Weeks Diet/Activity/Treatments Diet: Regular Activity: Nothing in the vagina Walking is okay Skin/Wound/Dressing Care Report to your healthcare provider any signs of infection, such as:: chills, fever, increased pain and unusual drainage Visit Report/Discharge Packet Instructions: DI for Labor and Delivery, Vaginal Discharge Data Primary Care Provider: Emerson Marquez
[2021-01-27 10:53] VITALS: BP 101/62; PULSE 71; RESP 16; TEMP 36.9
== END 2021-01-27 12:57 | disposition home or self-care (01) | DRG 807 ==
PROVIDERS: Admitting Provider Obstetrics & Gynecology; Family Provider Student in an Organized Health Care Education/Training Program; PCP Student in an Organized Health Care Education/Training Program; Referring Provider Obstetrics & Gynecology; Visit Provider Obstetrics & Gynecology
DX: O42.02 Full-term premature rupture of membranes, onset of labor within 24 hours of rupture (principal); Z37.0 Single live birth; O76 Abnormality in fetal heart rate and rhythm complicating labor and delivery; Z3A.39 39 weeks gestation of pregnancy; O70.0 First degree perineal laceration during delivery; Z20.822 Contact with and (suspected) exposure to COVID-19
CPT/HCPCS: 01967; 36415; 59025; 59050; 59400; 84112; 85014; 85018; 85025; 86850; 86900; 86901; 87635; C9803; G0379; J3010

== ENCOUNTER → 2022-06-04 18:03 | Outpatient (CLI) | payer BC, SELFPAY | PROVIDERS: Family Provider Student in an Organized Health Care Education/Training Program; PCP Student in an Organized Health Care Education/Training Program; Visit Provider Nurse Practitioner Family | DX: J02.9 Acute pharyngitis, unspecified (principal) | CPT/HCPCS: 87070 ==

== ENCOUNTER → 2022-11-22 11:48 | Outpatient (CLI) | payer BC, SELFPAY ==
--- NOTE | 2022-11-22 11:48 | DI.MG.S_ITS ---
BILATERAL DIGITAL SCREENING MAMMOGRAM 3D/2D WITH CAD: 11/22/2022 CLINICAL: Baseline exam. Routine screening. No prior exams were available for comparison. Both breasts are heterogeneously dense, which may obscure small masses (category c / 51-75% glandular tissue). Current study was also evaluated with a Computer Aided Detection (CAD) system. No significant masses, calcifications, or other findings are seen in either breast. IMPRESSION: NEGATIVE There is no mammographic evidence of malignancy. A 1 year screening mammogram is recommended. Based on the Tyrer Cuzick model (a risk assessment model) the patient's lifetime risk is 16.8% and her 10 year risk is 2.2%. According to the ACR, ACS, and NCCN guidelines, an annual breast MRI exam along with mammogram is recommended if the patient's lifetime risk is 20% or greater. This exam was interpreted at Station ID: [id number]. NOTE: For mammograms, a report in lay terms will be sent to the patient. Approximately 15% of breast malignancies will not be visualized mammographically. In the management of a palpable breast mass, a negative mammogram must not discourage biopsy of a clinically suspicious lesion. Electronically Signed By: Jeffrey dickson/dunia:11/22/2022 14:18:20 letter sent: Normal Exam ACR BI-RADS Category 1: Negative 3341F
== END ==
PROVIDERS: Family Provider Student in an Organized Health Care Education/Training Program; PCP Student in an Organized Health Care Education/Training Program; Referring Provider Student in an Organized Health Care Education/Training Program; Visit Provider Student in an Organized Health Care Education/Training Program
DX: Z12.31 Encounter for screening mammogram for malignant neoplasm of breast (principal)
CPT/HCPCS: 77063; 77067

== ENCOUNTER 2023-02-21 12:15 | Outpatient (RCR) | payer BC, SELFPAY ==
--- NOTE | 2022-11-22 16:00 | PT.OIE ---
Current Diagnoses Other chronic pain (11/27/22) Pain in right shoulder (11/27/22) Pain in left shoulder (11/27/22) Sacrococcygeal disorders, not elsewhere classified (11/27/22) Other specified disorders of muscle (11/27/22) Past Medical History (Last Reviewed 03/18/22 @ 16:38 by Aracelis Foster PA-C) Chicken pox (1988) Essential thrombocytosis Keratosis pilaris (~2011) Migraines (~2011) Mononucleosis (~1997) Thrombocytopenia UTI (urinary tract infection) (~2012) Past Surgical History (Last Reviewed 03/18/22 @ 16:38 by Aracelis Foster PA-C) Anesthesia History of third molar tooth extraction (1999) History of tonsillectomy (1987) Visit Care Team Role Provider Type Emerson Marquez MD Attending Provider Physician Family Provider Primary Care Provider Referring Provider Specialty: Internal Medicine Address: [address] [place] [address], [facility] Email: [email or web address] Physical Therapy Initial Evaluation PT-OP-A Visit Information Start: 11/21/22 13:55 Freq: Status: Active Protocol: Document 11/22/22 16:02 [facility] (Rec: 11/22/22 17:19 [facility] [id number]) Out-Patient Physical Therapy Visit Information Visit Information Visit Type Initial Evaluation Visit Start Time 16:00 Visit Stop Time 16:45 Total Visit Minutes 45 Visit Number 1 Evaluation Information Evaluation Date 11/22/22 PT-OP-B Current Condition Start: 11/21/22 13:55 Freq: Status: Active Protocol: Document 11/22/22 16:02 [facility] (Rec: 11/22/22 17:19 [facility] [id number]) Current Condition History of Current Condition Onset Date 2013 Current Complaints Left sided SI pain and instability History of Current Condition injury 2012 that led to her SI pain, she was doing her normal workouts which was a advanced yoga she did a stretch that really pulled or dislocated her and the next day couldnt walk at all, MRI's showed damage at the left hamstring insertion. At PT diagnosed it was piriformis tightness pinching a nerve and giving her pain. For years she would have to see the chiro 2 xms a week. Now she is finally to the point where she can go longer in between. If she tried to lift her SI will go back out. She recently has started wearing a pelvic belt and that has been a game changer. IF she does ER it will cause her SI to go out, lifts can cause SI and lunges can also cause it to go out. The PT she did was before she was properly diagnosed and address her hamstring Her pain is in the SI joint left side, if she does a exercise and its too much she feels the pain there and it goes straight into her back. She had two vaginal deliveries 2018 and 2020. She experienced left sided hip pain during , now she can sleep in other side but it painful to sleep on her back. She had 4 hours of pushing with her first baby and had a lot of pain after that and feels that she had abdominal seperation. It does feel like it is closed more now but she still gets tenting of her abs . She has bladder control issues now and will leak with jumping. She will have to stop up to 3 times in her workouts now. left shoulder pain with elevation and clicking and she will feel pain if she goes too far back into abduction with ER. She is concerned about causing more damage. This came on more overtime Treatment Goals Patient/Caregiver Goals pt would like to work on stability exercises to help keep it in place, she goes to the chiro every several months PT-OP-C Subjective Start: 11/21/22 13:55 Freq: Status: Active Protocol: Document 11/22/22 16:02 [facility] (Rec: 11/27/22 17:27 [facility] [id number]) OP-PT Subjective Patient Comments Patient Comments Malina reports she was able to work on her exercises at home. She did try to stretch her right hip flexor but she feels like she over stretched it and felt pain then at her right hamstring attachment meaning to her that her SI was off Patient Questionnaires Oswestry Low Back Index Oswestry Score 13 Oswestry Impairment 1 to 19% Impaired (Score 1-19) OP-PT Pain Assessment Location left SI joint Pain Location Details LEft SI joint Intensity 3 Scale Used Numeric (0 - 10) PT-OP-F Manual Assessment Start: 11/21/22 13:55 Freq: Status: Active Protocol: Document 11/22/22 16:02 [facility] (Rec: 11/22/22 17:19 [facility] [id number]) Manual Assessments Soft Tissue Assessment Soft Tissue Mobility Assessment right iliopsoas tightness with + right marlene test Joint Mobility Assessment Joint Mobility Assessment R SI joint unlocking with ASLR left PT-OP-J Posture/Palpation/Skin Start: 11/21/22 13:55 Freq: Status: Active Protocol: Document 11/22/22 16:02 [facility] (Rec: 11/22/22 17:19 [facility] [id number]) Posture Evaluation Comments Posture Comments pt stands with increased lordosis Palpation Assessment Location left sacral MAYRA Palpation Findings Soft Tissue Tightness Palpation Details tenderness along the left sacral MAYRA border PT-OP-Q Treatments Start: 11/21/22 13:55 Freq: Status: Active Protocol: Document 11/22/22 17:27 [facility] (Rec: 11/27/22 17:29 [facility] [id number]) Therapeutic Exercises Supine Exercises ball squeeze with pelvic floor engagement Reps/Minutes x 5 TA with bent knee fall out Reps/Minutes x 10 reps Comments cues for pelvic stability TA with marching Reps/Minutes x 10 reps Comments cues to keep pelvis stable Prone Exercises prone knee flexion with stabilization Reps/Minutes x 10 reps Comments progressed to double knee bends without low back arching Sidelying Exercises lateral hip circles Reps/Minutes 2 x 10 reps lateral hip abduction Reps/Minutes x 10 clam shells Reps/Minutes 2 x 10 Standing Exercises standing lunges Comments cues for low back stabilization with lunges Manual Therapy Treatment Manual Techniques Manual Iliopsoas release Type right side Body Position Supine manual quad MFR Type right quad Body Position Supine Comments in marlene test position PT-OP-T Assessment and Plan Start: 11/21/22 13:55 Freq: Status: Active Protocol: Document 11/22/22 16:02 [facility] (Rec: 11/27/22 17:27 [facility] [id number]) Physical Therapy Assessment Rehab Potential Rehabilitation Potential Excellent Evaluation Complexity Number of Personal Factors/Comorbidities 0 Number of Body Systems Impaired 1-2 Clinical Presentation at Evaluation Stable Impairments Impairments Activity Tolerance,Functional Activities,Pain,Posture,Soft Tissue Mobility,Strength,Tone Other Impairments urinary leakage with activity Goals 3 Impairment iliopsoas tightness as well as lumbar paraspinal guarding on the right Short Term Goal (STG) Correct muscle imbalances and pt is given a home program to work on muscle lengthening on the right STG Duration 4 weeks Custodial Goal (LTG) Malina is independent with a HEP for ilioposas and lumbar paraspinal stretching. 2 Impairment SI instability with + ASLR test on the right Short Term Goal (STG) Malina is educated in SI balancing exercises to assist with stabilization of the SI joint STG Duration 4 weeks Custodial Goal (LTG) Malina presents with a negative ASLR test and reports decreased c/o SI instability LTG Duration 8 weeks + 1 Impairment Malina describes pain in the left SI joint rated 3/10, because of her pain her sleep is reduced by 25%. Pain prevents Malina from engaging in her weight lifting program Swing Frame Grinder Operator Goal (LTG) Malina reports a overall reduction in pain and reports she has no pain with sleeping. Malina is able to return to a weight lifting program using good form without pain LTG Duration 8 weeks + Assessment Summary Assessment Malina is a 42 year old female referred to PT with chronic left sided SI joint pain that began with a injury in 2013 from over doing it with yoga poses. She notes at this time she feels like her SI joint will become unstable and she is looking for exercises to help with stability. She also describes urinary leakage especially with higher level activity. She is + for ASLR on the right for R SI instability as well as presents with iliopsoas guarding and lumbar paraspinal guarding on the right. She presents with pelvic floor and Transverse abdominal weakness and would benefit from a core strengthening program. We worked today on keeping Malina's spine neutral for stretches and for stabilization. She tends to de stabilize at L4-5 and L5-S1 creating pain. With her hip flexor stretch she was shown in supine in marlene test positon to keep her back flat. She was also shown in 1/2 kneeling how to keep her back from arching. Malina is a good candidate for PT Physical Therapy Plan Frequency and Duration Frequency of Treatment 1x/Week Duration of treatment (weeks) 8 Plan of Care Start Date 11/22/22 Plan of Care End Date 01/17/23
--- NOTE | 2022-11-22 16:45 | PT.OPPOC ---
Physical, Occupational & Speech Therapy At [facility] Current Diagnoses Other chronic pain (11/27/22) Pain in right shoulder (11/27/22) Pain in left shoulder (11/27/22) Sacrococcygeal disorders, not elsewhere classified (11/27/22) Other specified disorders of muscle (11/27/22) Visit Care Team Role Provider Type Emerson Marquez MD Attending Provider Physician Family Provider Primary Care Provider Referring Provider Specialty: Internal Medicine Address: [address] [place] [address], [address], [facility] Email: [email or web address] Plan Of Care PT-OP-T Assessment and Plan Start: 11/21/22 13:55 Freq: Status: Active Protocol: Document 11/22/22 16:02 [facility] (Rec: 11/27/22 17:27 [facility] [id number]) Physical Therapy Assessment Rehab Potential Rehabilitation Potential Excellent Evaluation Complexity Number of Personal Factors/Comorbidities 0 Number of Body Systems Impaired 1-2 Clinical Presentation at Evaluation Stable Impairments Impairments Activity Tolerance,Functional Activities,Pain,Posture,Soft Tissue Mobility,Strength,Tone Other Impairments urinary leakage with activity Goals 3 Impairment iliopsoas tightness as well as lumbar paraspinal guarding on the right Short Term Goal (STG) Correct muscle imbalances and pt is given a home program to work on muscle lengthening on the right STG Duration 4 weeks Intermediate Goal (LTG) Malina is independent with a HEP for ilioposas and lumbar paraspinal stretching. 2 Impairment SI instability with + ASLR test on the right Short Term Goal (STG) Malina is educated in SI balancing exercises to assist with stabilization of the SI joint STG Duration 4 weeks Upholsterer Outside Goal (LTG) Malina presents with a negative ASLR test and reports decreased c/o SI instability LTG Duration 8 weeks + 1 Impairment Malina describes pain in the left SI joint rated 3/10, because of her pain her sleep is reduced by 25%. Pain prevents Malina from engaging in her weight lifting program Upholsterer Outside Goal (LTG) Malina reports a overall reduction in pain and reports she has no pain with sleeping. Malina is able to return to a weight lifting program using good form without pain LTG Duration 8 weeks + Assessment Summary Assessment Malina is a 42 year old female referred to PT with chronic left sided SI joint pain that began with a injury in 2012 from over doing it with yoga poses. She notes at this time she feels like her SI joint will become unstable and she is looking for exercises to help with stability. She also describes urinary leakage especially with higher level activity. She is + for ASLR on the right for R SI instability as well as presents with iliopsoas guarding and lumbar paraspinal guarding on the right. She presents with pelvic floor and Transverse abdominal weakness and would benefit from a core strengthening program. We worked today on keeping Malina's spine neutral for stretches and for stabilization. She tends to de stabilize at L4-5 and L5-S1 creating pain. With her hip flexor stretch she was shown in supine in marlene test position to keep her back flat. She was also shown in 1/2 kneeling how to keep her back from arching. Malina is a good candidate for PT Physical Therapy Plan Frequency and Duration Frequency of Treatment 1x/Week Duration of treatment (weeks) 8 Plan of Care Start Date 11/22/22 Plan of Care End Date 01/17/23 Plan of Care Dates Plan of Care Start Date 11/22/22 Plan of Care End Date 01/17/23 Electronically Signed by: Angie Garduno, PT 11/28/22 0926 If you are in agreement with this Plan of Care, please return a signed and dated copy. I have reviewed this Plan of Care and certify that the skilled therapy services above are required to meet the patient?s needs. Physician Signature Date Printed Name and Credentials Clinical Instructor Signature Printed Name and Credentials
--- NOTE | 2022-11-27 17:30 | PT.OTN ---
Current Diagnoses Other chronic pain (11/27/22) Pain in right shoulder (11/27/22) Pain in left shoulder (11/27/22) Sacrococcygeal disorders, not elsewhere classified (11/27/22) Other specified disorders of muscle (11/27/22) Physical Therapy Treatment Note PT-OP-A Visit Information Start: 11/21/22 13:55 Freq: Status: Active Protocol: Document 11/27/22 17:24 [facility] (Rec: 11/27/22 17:27 [facility] [id number]) Out-Patient Physical Therapy Visit Information Visit Information Visit Start Time 14:40 Visit Stop Time 15:25 Total Visit Minutes 45 Visit Number 2 PT-OP-B Current Condition Start: 11/21/22 13:55 Freq: Status: Active Protocol: Document 11/22/22 16:02 [facility] (Rec: 11/22/22 17:19 [facility] [id number]) Current Condition History of Current Condition Onset Date 2012 Current Complaints Left sided SI pain and instability History of Current Condition injury 2012 that led to her SI pain, she was doing her normal workouts which was a advanced yoga she did a stretch that really pulled or dislocated her and the next day couldnt walk at all, MRI's showed damage at the left hamstring insertion. At PT diagnosed it was piriformis tightness pinching a nerve and giving her pain. For years she would have to see the chiro 2 xms a week. Now she is finally to the point where she can go longer in between. If she tried to lift her SI will go back out. She recently has started wearing a pelvic belt and that has been a game changer. IF she does ER it will cause her SI to go out, lifts can cause SI and lunges can also cause it to go out. The PT she did was before she was properly diagnosed and address her hamstring Her pain is in the SI joint left side, if she does a exercise and its too much she feels the pain there and it goes straight into her back. She had two vaginal deliveries 2018 and 2020. She experienced left sided hip pain during , now she can sleep in other side but it painful to sleep on her back. She had 4 hours of pushing with her first baby and had a lot of pain after that and feels that she had abdominal seperation. It does feel like it is closed more now but she still gets tenting of her abs . She has bladder control issues now and will leak with jumping. She will have to stop up to 3 times in her workouts now. left shoulder pain with elevation and clicking and she will feel pain if she goes too far back into abduction with ER. She is concerned about causing more damage. This came on more overtime Treatment Goals Patient/Caregiver Goals pt would like to work on stability exercises to help keep it in place, she goes to the chiro every several months PT-OP-C Subjective Start: 11/21/22 13:55 Freq: Status: Active Protocol: Document 11/27/22 17:24 [facility] (Rec: 11/27/22 17:27 [facility] [id number]) OP-PT Subjective Patient Comments Patient Comments Malina reports she was able to work on her exercises at home. She did try to stretch her right hip flexor but she feels like she over stretched it and felt pain then at her right hamstring attachment meaning to her that her SI was off PT-OP-F Manual Assessment Start: 11/21/22 13:55 Freq: Status: Active Protocol: Document 11/22/22 16:02 [facility] (Rec: 11/22/22 17:19 [facility] [id number]) Manual Assessments Soft Tissue Assessment Soft Tissue Mobility Assessment right iliopsoas tightness with + right marlene test Joint Mobility Assessment Joint Mobility Assessment R SI joint unlocking with ASLR left PT-OP-J Posture/Palpation/Skin Start: 11/21/22 13:55 Freq: Status: Active Protocol: Document 11/22/22 16:02 [facility] (Rec: 11/22/22 17:19 [facility] [id number]) Posture Evaluation Comments Posture Comments pt stands with increased lordosis Palpation Assessment Location left sacral MAYRA Palpation Findings Soft Tissue Tightness Palpation Details tenderness along the left sacral MAYRA border PT-OP-Q Treatments Start: 11/21/22 13:55 Freq: Status: Active Protocol: Document 11/27/22 17:27 [facility] (Rec: 11/27/22 17:29 [facility] [id number]) Therapeutic Exercises Supine Exercises ball squeeze with pelvic floor engagement Reps/Minutes x 5 TA with bent knee fall out Reps/Minutes x 10 reps Comments cues for pelvic stability TA with marching Reps/Minutes x 10 reps Comments cues to keep pelvis stable Prone Exercises prone knee flexion with stabilization Reps/Minutes x 10 reps Comments progressed to double knee bends without low back arching Sidelying Exercises lateral hip circles Reps/Minutes 2 x 10 reps lateral hip abduction Reps/Minutes x 10 clam shells Reps/Minutes 2 x 10 Standing Exercises standing lunges Comments cues for low back stabilization with lunges Manual Therapy Treatment Manual Techniques Manual Iliopsoas release Type right side Body Position Supine manual quad MFR Type right quad Body Position Supine Comments in marlene test position PT-OP-T Assessment and Plan Start: 11/21/22 13:55 Freq: Status: Active Protocol: Document 11/27/22 17:24 [facility] (Rec: 11/27/22 17:27 [facility] [id number]) Physical Therapy Assessment Assessment Summary Assessment we worked today on keeping Malina's spine neutral for stretches and for stabilization. She tends to de stabilize at L4-5 and L5-S1 creating pain. With her hip flexor stretch she was shown in supine in marlene test positon to keep her back flat. She was also shown in 1/2 kneeling how to keep her back from arching. Physical Therapy Plan Frequency and Duration Frequency of Treatment 1x/Week Duration of treatment (weeks) 8 Plan of Care Start Date 11/22/22 Plan of Care End Date 01/17/23
--- NOTE | 2022-11-28 09:32 | PT.OTN ---
Current Diagnoses Other chronic pain (11/27/22) Pain in right shoulder (11/27/22) Pain in left shoulder (11/27/22) Sacrococcygeal disorders, not elsewhere classified (11/27/22) Other specified disorders of muscle (11/27/22) Physical Therapy Treatment Note PT-OP-A Visit Information Start: 11/21/22 13:55 Freq: Status: Active Protocol: Document 11/27/22 17:27 [facility] (Rec: 11/27/22 17:27 [facility] [id number]) Out-Patient Physical Therapy Visit Information Visit Information Visit Type Treatment Note Visit Start Time 14:40 Visit Stop Time 15:25 Total Visit Minutes 45 Visit Number 2 PT-OP-B Current Condition Start: 11/21/22 13:55 Freq: Status: Active Protocol: Document 11/22/22 16:02 [facility] (Rec: 11/22/22 17:19 [facility] [id number]) Current Condition History of Current Condition Onset Date 2012 Current Complaints Left sided SI pain and instability History of Current Condition injury 2012 that led to her SI pain, she was doing her normal workouts which was a advanced yoga she did a stretch that really pulled or dislocated her and the next day couldnt walk at all, MRI's showed damage at the left hamstring insertion. At PT diagnosed it was piriformis tightness pinching a nerve and giving her pain. For years she would have to see the chiro 2 xms a week. Now she is finally to the point where she can go longer in between. If she tried to lift her SI will go back out. She recently has started wearing a pelvic belt and that has been a game changer. IF she does ER it will cause her SI to go out, lifts can cause SI and lunges can also cause it to go out. The PT she did was before she was properly diagnosed and address her hamstring Her pain is in the SI joint left side, if she does a exercise and its too much she feels the pain there and it goes straight into her back. She had two vaginal deliveries 2018 and 2020. She experienced left sided hip pain during , now she can sleep in other side but it painful to sleep on her back. She had 4 hours of pushing with her first baby and had a lot of pain after that and feels that she had abdominal seperation. It does feel like it is closed more now but she still gets tenting of her abs . She has bladder control issues now and will leak with jumping. She will have to stop up to 3 times in her workouts now. left shoulder pain with elevation and clicking and she will feel pain if she goes too far back into abduction with ER. She is concerned about causing more damage. This came on more overtime Treatment Goals Patient/Caregiver Goals pt would like to work on stability exercises to help keep it in place, she goes to the chiro every several months PT-OP-C Subjective Start: 11/21/22 13:55 Freq: Status: Active Protocol: Document 11/27/22 17:27 [facility] (Rec: 11/27/22 17:27 [facility] [id number]) OP-PT Subjective Patient Comments Patient Comments Malina reports she was able to work on her exercises at home. She did try to stretch her right hip flexor but she feels like she over stretched it and felt pain then at her right hamstring attachment meaning to her that her SI was off Patient Questionnaires Oswestry Low Back Index Oswestry Score 13 Oswestry Impairment 1 to 19% Impaired (Score 1-19) OP-PT Pain Assessment Location left SI joint Pain Location Details LEft SI joint Intensity 3 Scale Used Numeric (0 - 10) PT-OP-F Manual Assessment Start: 11/21/22 13:55 Freq: Status: Active Protocol: Document 11/22/22 16:02 [facility] (Rec: 11/22/22 17:19 [facility] [id number]) Manual Assessments Soft Tissue Assessment Soft Tissue Mobility Assessment right iliopsoas tightness with + right marlene test Joint Mobility Assessment Joint Mobility Assessment R SI joint unlocking with ASLR left PT-OP-J Posture/Palpation/Skin Start: 11/21/22 13:55 Freq: Status: Active Protocol: Document 11/22/22 16:02 [facility] (Rec: 11/22/22 17:19 [facility] [id number]) Posture Evaluation Comments Posture Comments pt stands with increased lordosis Palpation Assessment Location left sacral MAYRA Palpation Findings Soft Tissue Tightness Palpation Details tenderness along the left sacral MAYRA border PT-OP-Q Treatments Start: 11/21/22 13:55 Freq: Status: Active Protocol: Document 11/27/22 17:27 [facility] (Rec: 11/27/22 17:29 [facility] [id number]) Therapeutic Exercises Supine Exercises ball squeeze with pelvic floor engagement Reps/Minutes x 5 TA with bent knee fall out Reps/Minutes x 10 reps Comments cues for pelvic stability TA with marching Reps/Minutes x 10 reps Comments cues to keep pelvis stable Prone Exercises prone knee flexion with stabilization Reps/Minutes x 10 reps Comments progressed to double knee bends without low back arching Sidelying Exercises lateral hip circles Reps/Minutes 2 x 10 reps lateral hip abduction Reps/Minutes x 10 clam shells Reps/Minutes 2 x 10 Standing Exercises standing lunges Comments cues for low back stabilization with lunges Manual Therapy Treatment Manual Techniques Manual Iliopsoas release Type right side Body Position Supine manual quad MFR Type right quad Body Position Supine Comments in marlene test position PT-OP-T Assessment and Plan Start: 11/21/22 13:55 Freq: Status: Active Protocol: Document 11/27/22 17:27 [facility] (Rec: 11/27/22 17:27 [facility] [id number]) Physical Therapy Assessment Rehab Potential Rehabilitation Potential Excellent Evaluation Complexity Number of Personal Factors/Comorbidities 0 Number of Body Systems Impaired 1-2 Clinical Presentation at Evaluation Stable Impairments Impairments Activity Tolerance,Functional Activities,Pain,Posture,Soft Tissue Mobility,Strength,Tone Other Impairments urinary leakage with activity Goals 3 Impairment iliopsoas tightness as well as lumbar paraspinal guarding on the right Short Term Goal (STG) Correct muscle imbalances and pt is given a home program to work on muscle lengthening on the right STG Duration 4 weeks Residential Goal (LTG) Malina is independent with a HEP for ilioposas and lumbar paraspinal stretching. 2 Impairment SI instability with + ASLR test on the right Short Term Goal (STG) Malina is educated in SI balancing exercises to assist with stabilization of the SI joint STG Duration 4 weeks Residential Goal (LTG) Malina presents with a negative ASLR test and reports decreased c/o SI instability LTG Duration 8 weeks + 1 Impairment Malina describes pain in the left SI joint rated 3/10, because of her pain her sleep is reduced by 25%. Pain prevents Malina from engaging in her weight lifting program [employer] Goal (LTG) Malina reports a overall reduction in pain and reports she has no pain with sleeping. Malina is able to return to a weight lifting program using good form without pain LTG Duration 8 weeks + Assessment Summary Assessment Malina is a 42 year old female referred to PT with chronic left sided SI joint pain that began with a injury in 2013 from over doing it with yoga poses. She notes at this time she feels like her SI joint will become unstable and she is looking for exercises to help with stability. She also describes urinary leakage especially with higher level activity. She is + for ASLR on the right for R SI instability as well as presents with iliopsoas guarding and lumbar paraspinal guarding on the right. She presents with pelvic floor and Transverse abdominal weakness and would benefit from a core strengthening program. We worked today on keeping Malina's spine neutral for stretches and for stabilization. She tends to de stabilize at L4-5 and L5-S1 creating pain. With her hip flexor stretch she was shown in supine in marlene test positon to keep her back flat. She was also shown in 1/2 kneeling how to keep her back from arching. Malina is a good candidate for PT Malina tolerated all exercises well today Physical Therapy Plan Frequency and Duration Frequency of Treatment 1x/Week Duration of treatment (weeks) 8 Plan of Care Start Date 11/22/22 Plan of Care End Date 01/17/23 Therapeutic Interventions Therapeutic Interventions Home Exercise Program,Joint Mobilizations,Manual Therapy, Self-Care/Home Management,Soft Tissue Mobilization, Therapeutic Exercises Modalities Biofeedback Next Visit Focus/Plan Next Note Type Treatment Note Next Visit Plan review TA stabilization exercises given today, begin working quadruped, add in lumbar flexion based stretches
--- NOTE | 2022-12-20 16:12 | PT.OTN ---
Current Diagnoses Other chronic pain (12/20/22) Pain in right shoulder (12/20/22) Pain in left shoulder (12/20/22) Sacrococcygeal disorders, not elsewhere classified (12/20/22) Other specified disorders of muscle (12/20/22) Physical Therapy Treatment Note PT-OP-A Visit Information Start: 11/21/22 13:55 Freq: Status: Active Protocol: Document 12/20/22 15:26 [facility] (Rec: 12/20/22 16:12 [facility] [id number]) Out-Patient Physical Therapy Visit Information Visit Information Visit Type Treatment Note Visit Start Time 15:15 Visit Stop Time 16:00 Total Visit Minutes 45 Visit Number 3 Number of DIEING OUT MACHINE OPERATOR Visits 0 PT-OP-B Current Condition Start: 11/21/22 13:55 Freq: Status: Active Protocol: Document 11/22/22 16:02 [facility] (Rec: 11/22/22 17:19 [facility] [id number]) Current Condition History of Current Condition Onset Date 2012 Current Complaints Left sided SI pain and instability History of Current Condition injury 2012 that led to her SI pain, she was doing her normal workouts which was a advanced yoga she did a stretch that really pulled or dislocated her and the next day couldnt walk at all, MRI's showed damage at the left hamstring insertion. At PT diagnosed it was piriformis tightness pinching a nerve and giving her pain. For years she would have to see the chiro 2 xms a week. Now she is finally to the point where she can go longer in between. If she tried to lift her SI will go back out. She recently has started wearing a pelvic belt and that has been a game changer. IF she does ER it will cause her SI to go out, lifts can cause SI and lunges can also cause it to go out. The PT she did was before she was properly diagnosed and address her hamstring Her pain is in the SI joint left side, if she does a exercise and its too much she feels the pain there and it goes straight into her back. She had two vaginal deliveries 2018 and 2020. She experienced left sided hip pain during , now she can sleep in other side but it painful to sleep on her back. She had 4 hours of pushing with her first baby and had a lot of pain after that and feels that she had abdominal seperation. It does feel like it is closed more now but she still gets tenting of her abs . She has bladder control issues now and will leak with jumping. She will have to stop up to 3 times in her workouts now. left shoulder pain with elevation and clicking and she will feel pain if she goes too far back into abduction with ER. She is concerned about causing more damage. This came on more overtime Treatment Goals Patient/Caregiver Goals pt would like to work on stability exercises to help keep it in place, she goes to the chiro every several months PT-OP-C Subjective Start: 11/21/22 13:55 Freq: Status: Active Protocol: Document 12/20/22 15:26 [facility] (Rec: 12/20/22 16:12 [facility] [id number]) OP-PT Subjective Patient Comments Patient Comments Pt reports she had to miss a couple of weeks of therapy due to household sick with cold. Since then she has not really done anything that aggravates symptoms and therefore has not had much pain. PT-OP-F Manual Assessment Start: 11/21/22 13:55 Freq: Status: Active Protocol: Document 11/22/22 16:02 [facility] (Rec: 11/22/22 17:19 [facility] [id number]) Manual Assessments Soft Tissue Assessment Soft Tissue Mobility Assessment right iliopsoas tightness with + right marlene test Joint Mobility Assessment Joint Mobility Assessment R SI joint unlocking with ASLR left PT-OP-J Posture/Palpation/Skin Start: 11/21/22 13:55 Freq: Status: Active Protocol: Document 11/22/22 16:02 [facility] (Rec: 11/22/22 17:19 [facility] [id number]) Posture Evaluation Comments Posture Comments pt stands with increased lordosis Palpation Assessment Location left sacral MAYRA Palpation Findings Soft Tissue Tightness Palpation Details tenderness along the left sacral MAYRA border PT-OP-Q Treatments Start: 11/21/22 13:55 Freq: Status: Active Protocol: Document 12/20/22 15:26 [facility] (Rec: 12/20/22 16:12 [facility] [id number]) Therapeutic Exercises Other Exercises iliopsoas release Comments 1 x on left with tennis ball wall sits Comments 5 x 30 sec holds with resisted hip abd isometric hip abduction Comments 2 x10 bilat ( green band) Manual Therapy Treatment Manual Techniques long axis traction Comments right LE iliopsoas release Comments right and left PT-OP-T Assessment and Plan Start: 11/21/22 13:55 Freq: Status: Active Protocol: Document 12/20/22 15:26 [facility] (Rec: 12/20/22 16:12 [facility] [id number]) Physical Therapy Assessment Goals 3 Impairment iliopsoas tightness as well as lumbar paraspinal guarding on the right Short Term Goal (STG) Correct muscle imbalances and pt is given a home program to work on muscle lengthening on the right STG Duration 4 weeks Sheet Pile Hammer Operator Goal (LTG) Malina is independent with a HEP for ilioposas and lumbar paraspinal stretching. 2 Impairment SI instability with + ASLR test on the right Short Term Goal (STG) Malina is educated in SI balancing exercises to assist with stabilization of the SI joint STG Duration 4 weeks Nursing Home Goal (LTG) Malina presents with a negative ASLR test and reports decreased c/o SI instability LTG Duration 8 weeks + 1 Impairment Malina describes pain in the left SI joint rated 3/10, because of her pain her sleep is reduced by 25%. Pain prevents Malina from engaging in her weight lifting program Sheet Pile Hammer Operator Goal (LTG) Malina reports a overall reduction in pain and reports she has no pain with sleeping. Malina is able to return to a weight lifting program using good form without pain LTG Duration 8 weeks + Assessment Summary Assessment Pt is making steady progress. Right hip ant rot. improved to level post manual theraoy today. Noted left hip instability with squats and lunges. Addressed this with new ex. to help with gluteus medius activation before returning to workout routine. Physical Therapy Plan Frequency and Duration Frequency of Treatment 1x/Week Duration of treatment (weeks) 8 Plan of Care Start Date 11/22/22 Plan of Care End Date 01/17/23 Therapeutic Interventions Therapeutic Interventions Home Exercise Program,Joint Mobilizations,Manual Therapy, Self-Care/Home Management,Soft Tissue Mobilization, Therapeutic Exercises Modalities Biofeedback Next Visit Focus/Plan Next Note Type Treatment Note Next Visit Plan Manual as needed core/hip stabilization ( leg press, modified squats)
--- NOTE | 2022-12-27 16:02 | PT.OTN ---
Current Diagnoses Other chronic pain (12/27/22) Pain in right shoulder (12/27/22) Pain in left shoulder (12/27/22) Sacrococcygeal disorders, not elsewhere classified (12/27/22) Other specified disorders of muscle (12/27/22) Physical Therapy Treatment Note PT-OP-A Visit Information Start: 11/21/22 13:55 Freq: Status: Active Protocol: Document 12/27/22 14:28 [facility] (Rec: 12/27/22 15:22 [facility] [id number]) Out-Patient Physical Therapy Visit Information Visit Information Visit Type Treatment Note Visit Start Time 14:32 Visit Stop Time 15:15 Total Visit Minutes 43 Visit Number 4 Number of STAINED GLASS GLAZIER Visits 1 PT-OP-B Current Condition Start: 11/21/22 13:55 Freq: Status: Active Protocol: Document 11/22/22 16:02 [facility] (Rec: 11/22/22 17:19 [facility] [id number]) Current Condition History of Current Condition Onset Date 2012 Current Complaints Left sided SI pain and instability History of Current Condition injury 2012 that led to her SI pain, she was doing her normal workouts which was a advanced yoga she did a stretch that really pulled or dislocated her and the next day couldnt walk at all, MRI's showed damage at the left hamstring insertion. At PT diagnosed it was piriformis tightness pinching a nerve and giving her pain. For years she would have to see the chiro 2 xms a week. Now she is finally to the point where she can go longer in between. If she tried to lift her SI will go back out. She recently has started wearing a pelvic belt and that has been a game changer. IF she does ER it will cause her SI to go out, lifts can cause SI and lunges can also cause it to go out. The PT she did was before she was properly diagnosed and address her hamstring Her pain is in the SI joint left side, if she does a exercise and its too much she feels the pain there and it goes straight into her back. She had two vaginal deliveries 2018 and 2020. She experienced left sided hip pain during , now she can sleep in other side but it painful to sleep on her back. She had 4 hours of pushing with her first baby and had a lot of pain after that and feels that she had abdominal seperation. It does feel like it is closed more now but she still gets tenting of her abs . She has bladder control issues now and will leak with jumping. She will have to stop up to 3 times in her workouts now. left shoulder pain with elevation and clicking and she will feel pain if she goes too far back into abduction with ER. She is concerned about causing more damage. This came on more overtime Treatment Goals Patient/Caregiver Goals pt would like to work on stability exercises to help keep it in place, she goes to the chiro every several months PT-OP-C Subjective Start: 11/21/22 13:55 Freq: Status: Active Protocol: Document 12/27/22 14:28 [facility] (Rec: 12/27/22 15:22 [facility] [id number]) OP-PT Subjective Patient Comments Patient Comments Pt reports doing UE strengthening at the gym, now feels discomfort in the SI joint area. PT-OP-F Manual Assessment Start: 11/21/22 13:55 Freq: Status: Active Protocol: Document 11/22/22 16:02 [facility] (Rec: 11/22/22 17:19 [facility] [id number]) Manual Assessments Soft Tissue Assessment Soft Tissue Mobility Assessment right iliopsoas tightness with + right anshu test Joint Mobility Assessment Joint Mobility Assessment R SI joint unlocking with ASLR left PT-OP-J Posture/Palpation/Skin Start: 11/21/22 13:55 Freq: Status: Active Protocol: Document 11/22/22 16:02 [facility] (Rec: 11/22/22 17:19 [facility] [id number]) Posture Evaluation Comments Posture Comments pt stands with increased lordosis Palpation Assessment Location left sacral MAYRA Palpation Findings Soft Tissue Tightness Palpation Details tenderness along the left sacral MAYRA border PT-OP-Q Treatments Start: 11/21/22 13:55 Freq: Status: Active Protocol: Document 12/27/22 14:28 [facility] (Rec: 12/27/22 15:22 [facility] [id number]) Therapeutic Exercises Supine Exercises TA with alternating UE/LE Reps/Minutes x10 Comments tactile cueing to avoid lumbar lordosis Anshu Stretches Reps/Minutes 3 x 10 sec ball squeeze with pelvic floor engagement Reps/Minutes 5x 10 sec hold TA with bent knee fall out Reps/Minutes x 10 reps Comments cues for pelvic stability TA with marching Side bilateral Reps/Minutes x 10 reps Comments VC to keep pelvis stable, good carryover pelvic floor abd TA stabilization Reps/Minutes 2x10 second hold Sidelying Exercises lateral hip circles Reps/Minutes 2 x 10 reps lateral hip abduction Reps/Minutes 2x 10 clam shells Reps/Minutes 2x10 Sitting Exercises TA with marching Equipment Used seated at mat table Reps/Minutes x10 Comments VC for breathing, while holding TA contraction and pelvic alignment Other Exercises isometric hip abduction Comments 2x10 bilat (therapist assist) Manual Therapy Treatment Manual Techniques iliopsoas release Comments right and left PT-OP-T Assessment and Plan Start: 11/21/22 13:55 Freq: Status: Active Protocol: Document 12/27/22 14:28 (Rec: 12/27/22 15:22 [id number]) Physical Therapy Assessment Impairments Impairments Activity Tolerance,Functional Activities,Pain,Posture,Soft Tissue Mobility,Strength,Tone Other Impairments urinary leakage with activity Goals 3 Impairment iliopsoas tightness as well as lumbar paraspinal guarding on the right Short Term Goal (STG) Correct muscle imbalances and pt is given a home program to work on muscle lengthening on the right STG Duration 4 weeks Shelter Goal (LTG) Malina is independent with a HEP for ilioposas and lumbar paraspinal stretching. 2 Impairment SI instability with + ASLR test on the right Short Term Goal (STG) Malina is educated in SI balancing exercises to assist with stabilization of the SI joint STG Duration 4 weeks Substation Operator Conversion Goal (LTG) Malina presents with a negative ASLR test and reports decreased c/o SI instability LTG Duration 8 weeks + 1 Impairment Malina describes pain in the left SI joint rated 3/10, because of her pain her sleep is reduced by 25%. Pain prevents Malina from engaging in her weight lifting program Shelter Goal (LTG) Malina reports a overall reduction in pain and reports she has no pain with sleeping. Malina is able to return to a weight lifting program using good form without pain LTG Duration 8 weeks + Assessment Summary Assessment Pt started doing UE strength at the gym, but held off on doing LE strength because she thought that may be what is aggravating it. She reported L SI joint discomfort today since going to the gym, she said she would describe it as irritated rather than pain. Educated pt on anatomy and compensatory motions that happen when there is muscle weakness and instability. Pt was challenged with holding TA contraction during seated marches, vc for breathing during ex. Physical Therapy Plan Frequency and Duration Frequency of Treatment 1x/Week Duration of treatment (weeks) 8 Plan of Care Start Date 11/22/22 Plan of Care End Date 01/17/23 Therapeutic Interventions Therapeutic Interventions Home Exercise Program,Joint Mobilizations,Manual Therapy, Self-Care/Home Management,Soft Tissue Mobilization, Therapeutic Exercises Modalities Biofeedback Next Visit Focus/Plan Next Note Type Treatment Note Next Visit Plan Manual as needed core/hip stabilization ( leg press, modified squats)
--- NOTE | 2023-01-03 16:42 | PT.OTN ---
Current Diagnoses Other chronic pain (01/03/23) Pain in right shoulder (01/03/23) Pain in left shoulder (01/03/23) Sacrococcygeal disorders, not elsewhere classified (01/03/23) Other specified disorders of muscle (01/03/23) Physical Therapy Treatment Note PT-OP-A Visit Information Start: 11/21/22 13:55 Freq: Status: Active Protocol: Document 01/03/23 13:45 [facility] (Rec: 01/03/23 14:32 [facility] [id number]) Out-Patient Physical Therapy Visit Information Visit Information Visit Type Treatment Note Visit Start Time 13:45 Visit Stop Time 14:28 Total Visit Minutes 43 Visit Number 5 Number of DINING CAR CONDUCTOR Visits 0 PT-OP-B Current Condition Start: 11/21/22 13:55 Freq: Status: Active Protocol: Document 11/22/22 16:02 [facility] (Rec: 11/22/22 17:19 [facility] [id number]) Current Condition History of Current Condition Onset Date 2012 Current Complaints Left sided SI pain and instability History of Current Condition injury 2012 that led to her SI pain, she was doing her normal workouts which was a advanced yoga she did a stretch that really pulled or dislocated her and the next day couldnt walk at all, MRI's showed damage at the left hamstring insertion. At PT diagnosed it was piriformis tightness pinching a nerve and giving her pain. For years she would have to see the chiro 2 xms a week. Now she is finally to the point where she can go longer in between. If she tried to lift her SI will go back out. She recently has started wearing a pelvic belt and that has been a game changer. IF she does ER it will cause her SI to go out, lifts can cause SI and lunges can also cause it to go out. The PT she did was before she was properly diagnosed and address her hamstring Her pain is in the SI joint left side, if she does a exercise and its too much she feels the pain there and it goes straight into her back. She had two vaginal deliveries 2018 and 2020. She experienced left sided hip pain during , now she can sleep in other side but it painful to sleep on her back. She had 4 hours of pushing with her first baby and had a lot of pain after that and feels that she had abdominal seperation. It does feel like it is closed more now but she still gets tenting of her abs . She has bladder control issues now and will leak with jumping. She will have to stop up to 3 times in her workouts now. left shoulder pain with elevation and clicking and she will feel pain if she goes too far back into abduction with ER. She is concerned about causing more damage. This came on more overtime Treatment Goals Patient/Caregiver Goals pt would like to work on stability exercises to help keep it in place, she goes to the chiro every several months PT-OP-C Subjective Start: 11/21/22 13:55 Freq: Status: Active Protocol: Document 01/03/23 13:45 [facility] (Rec: 01/03/23 14:32 [facility] [id number]) OP-PT Subjective Patient Comments Patient Comments Reports feeling pretty good today, less pain. Feels most pain left SI with lift, split lunges. Compliant to HEP, has to be careful not to overstretch. Has 1 and 3 y/o frequently lifting them PT-OP-F Manual Assessment Start: 11/21/22 13:55 Freq: Status: Active Protocol: Document 11/22/22 16:02 [facility] (Rec: 11/22/22 17:19 [facility] [id number]) Manual Assessments Soft Tissue Assessment Soft Tissue Mobility Assessment right iliopsoas tightness with + right marlene test Joint Mobility Assessment Joint Mobility Assessment R SI joint unlocking with ASLR left PT-OP-J Posture/Palpation/Skin Start: 11/21/22 13:55 Freq: Status: Active Protocol: Document 11/22/22 16:02 [facility] (Rec: 11/22/22 17:19 [facility] [id number]) Posture Evaluation Comments Posture Comments pt stands with increased lordosis Palpation Assessment Location left sacral MAYRA Palpation Findings Soft Tissue Tightness Palpation Details tenderness along the left sacral MAYRA border PT-OP-Q Treatments Start: 11/21/22 13:55 Freq: Status: Active Protocol: Document 01/03/23 13:45 [facility] (Rec: 01/03/23 16:42 [facility] [id number]) Cardio Equipment Treadmill Duration (Minutes) 4 Speed 2.5 Incline 0 Other cues for neutral spine, equal step length Gym Equipment Sport Cord green Exercise Details slow forward walk with gluteal activation emphasis Cord/Resistance green Reps/Duration 6x Therapeutic Exercises Standing Exercises step-ups Comments cues for quad, glut activation weight acceptance Standing Exercise Name gluteal activation with heel strike Reps/Minutes 10x Comments stride legs glut sets Reps/Minutes 10x Comments dina and unil lift Resistance 8# Reps/Minutes 10x Comments cues for neutral, long spine and activation of glutes standing lunges Standing Exercise Name split lunge Comments verbal and manual cues for tucking pelvis, dec lordosis Self-Care/Home Management Treatment Education Patient Education Body Mechanics,Home Exercise Program,Posture PT-OP-T Assessment and Plan Start: 11/21/22 13:55 Freq: Status: Active Protocol: Document 01/03/23 13:45 [facility] (Rec: 01/03/23 14:32 [facility] [id number]) Physical Therapy Assessment Goals 3 Impairment iliopsoas tightness as well as lumbar paraspinal guarding on the right Short Term Goal (STG) Correct muscle imbalances and pt is given a home program to work on muscle lengthening on the right STG Duration 4 weeks Snf Goal (LTG) Malina is independent with a HEP for ilioposas and lumbar paraspinal stretching. 2 Impairment SI instability with + ASLR test on the right Short Term Goal (STG) Malina is educated in SI balancing exercises to assist with stabilization of the SI joint STG Duration 4 weeks Enterprise Application Architect Goal (LTG) Malina presents with a negative ASLR test and reports decreased c/o SI instability LTG Duration 8 weeks + 1 Impairment Malina describes pain in the left SI joint rated 3/10, because of her pain her sleep is reduced by 25%. Pain prevents Malina from engaging in her weight lifting program Enterprise Application Architect Goal (LTG) Malina reports a overall reduction in pain and reports she has no pain with sleeping. Malina is able to return to a weight lifting program using good form without pain LTG Duration 8 weeks + Assessment Summary Assessment Problem solved lift and split squat form with cues for neutral, long spine and inc gluteal activation with improved tolerance. Much emphasis today on gluteal activation with ex, gait especially with elevation/on stairs. Used step ups, sport cord, isolated unil gluteal activation activities with patient demonstrating good understanding and improved activation by end of session. Also instrsucted patient in self-evaluation of habitual positions and movements. Updated HEP HO provided. Physical Therapy Plan Frequency and Duration Frequency of Treatment 1x/Week Duration of treatment (weeks) 8 Plan of Care Start Date 11/22/22 Plan of Care End Date 01/17/23 Therapeutic Interventions Therapeutic Interventions Home Exercise Program,Joint Mobilizations,Manual Therapy, Self-Care/Home Management,Soft Tissue Mobilization, Therapeutic Exercises Modalities Biofeedback Next Visit Focus/Plan Next Note Type Treatment Note Next Visit Plan Evaluate response to last session, progress as indicated with core and hip stab ex, gluteal activation activities, manual therapy PRN
--- NOTE | 2023-01-24 17:13 | PT.OTN ---
Current Diagnoses Other chronic pain (01/24/23) Pain in right shoulder (01/24/23) Pain in left shoulder (01/24/23) Sacrococcygeal disorders, not elsewhere classified (01/24/23) Other specified disorders of muscle (01/24/23) Physical Therapy Treatment Note PT-OP-A Visit Information Start: 11/21/22 13:55 Freq: Status: Active Protocol: Document 01/24/23 11:31 [facility] (Rec: 01/24/23 13:09 [facility] [id number]) Out-Patient Physical Therapy Visit Information Visit Information Visit Type Treatment Note Visit Start Time 12:30 Visit Stop Time 13:00 Total Visit Minutes 30 Visit Number 6 PT-OP-B Current Condition Start: 11/21/22 13:55 Freq: Status: Active Protocol: Document 11/22/22 16:02 [facility] (Rec: 11/22/22 17:19 [facility] [id number]) Current Condition History of Current Condition Onset Date 2012 Current Complaints Left sided SI pain and instability History of Current Condition injury 2012 that led to her SI pain, she was doing her normal workouts which was a advanced yoga she did a stretch that really pulled or dislocated her and the next day couldnt walk at all, MRI's showed damage at the left hamstring insertion. At PT diagnosed it was piriformis tightness pinching a nerve and giving her pain. For years she would have to see the chiro 2 xms a week. Now she is finally to the point where she can go longer in between. If she tried to lift her SI will go back out. She recently has started wearing a pelvic belt and that has been a game changer. IF she does ER it will cause her SI to go out, lifts can cause SI and lunges can also cause it to go out. The PT she did was before she was properly diagnosed and address her hamstring Her pain is in the SI joint left side, if she does a exercise and its too much she feels the pain there and it goes straight into her back. She had two vaginal deliveries 2018 and 2020. She experienced left sided hip pain during , now she can sleep in other side but it painful to sleep on her back. She had 4 hours of pushing with her first baby and had a lot of pain after that and feels that she had abdominal seperation. It does feel like it is closed more now but she still gets tenting of her abs . She has bladder control issues now and will leak with jumping. She will have to stop up to 3 times in her workouts now. left shoulder pain with elevation and clicking and she will feel pain if she goes too far back into abduction with ER. She is concerned about causing more damage. This came on more overtime Treatment Goals Patient/Caregiver Goals pt would like to work on stability exercises to help keep it in place, she goes to the [facility] several months PT-OP-C Subjective Start: 11/21/22 13:55 Freq: Status: Active Protocol: Document 01/24/23 11:31 [facility] (Rec: 01/24/23 13:09 [facility] [id number]) OP-PT Subjective Patient Comments Patient Comments pt reports the last time she was in the new exercises were too much and she had pain x 2 weeks. It was the belt with resistance that irritated her. She was able to travel x 5 hour flight and her back did okay on the plane PT-OP-F Manual Assessment Start: 11/21/22 13:55 Freq: Status: Active Protocol: Document 11/22/22 16:02 [facility] (Rec: 11/22/22 17:19 [facility] [id number]) Manual Assessments Soft Tissue Assessment Soft Tissue Mobility Assessment right iliopsoas tightness with + right anshu test Joint Mobility Assessment Joint Mobility Assessment R SI joint unlocking with ASLR left PT-OP-J Posture/Palpation/Skin Start: 11/21/22 13:55 Freq: Status: Active Protocol: Document 11/22/22 16:02 [facility] (Rec: 11/22/22 17:19 [facility] [id number]) Posture Evaluation Comments Posture Comments pt stands with increased lordosis Palpation Assessment Location left sacral MAYRA Palpation Findings Soft Tissue Tightness Palpation Details tenderness along the left sacral MAYRA border PT-OP-Q Treatments Start: 11/21/22 13:55 Freq: Status: Active Protocol: Document 01/24/23 11:31 [facility] (Rec: 01/24/23 13:09 [facility] [id number]) Therapeutic Exercises Supine Exercises Anshu Stretches Reps/Minutes 3 x 10 sec ball squeeze with pelvic floor engagement Reps/Minutes 5x 10 sec hold single knee to chest Comments focus on right hip extension with left knee pulled to chest TA with marching Side bilateral Reps/Minutes x 10 reps Comments VC to keep pelvis stable, good carryover Sidelying Exercises sidelying shoulder ER Reps/Minutes 2 x 10 reps lateral hip circles Reps/Minutes 2 x 10 reps lateral hip abduction Reps/Minutes 2x 10 clam shells Reps/Minutes 2x10 Other Exercises standing adductor release Side bilateral Manual Therapy Treatment Soft Tissue Mobilization adductor release Body Location adductors B Mobilization Type Myofascial Release Intensity/Depth Moderate Comments right greater than left sided adductor guarding iliopsoas release Body Position Supine Comments release of right iliopsoas PT-OP-T Assessment and Plan Start: 11/21/22 13:55 Freq: Status: Active Protocol: Document 01/24/23 17:07 [facility] (Rec: 01/24/23 17:12 [facility] [id number]) Physical Therapy Assessment Goals 3 Impairment iliopsoas tightness as well as lumbar paraspinal guarding on the right Short Term Goal (STG) Correct muscle imbalances and pt is given a home program to work on muscle lengthening on the right GOAL MET STG Duration 4 weeks Usp Goal (LTG) Malina is independent with a HEP for ilioposas and lumbar paraspinal stretching. GOAL MET 2 Impairment SI instability with + ASLR test on the right Short Term Goal (STG) Malina is educated in SI balancing exercises to assist with stabilization of the SI joint GOAL MET STG Duration 4 weeks Work Order Detailer Goal (LTG) Malina presents with a negative ASLR test and reports decreased c/o SI instability Some improvement but still unlocking from the SI joint. She is wearing a SI belt now and this is really helping LTG Duration 8 weeks + 1 Impairment Malina describes pain in the left SI joint rated 3/10, because of her pain her sleep is reduced by 25%. Pain prevents Malina from engaging in her weight lifting program Work Order Detailer Goal (LTG) Malina reports a overall reduction in pain and reports she has no pain with sleeping. Malina is able to return to a weight lifting program using good form without pain excellent progress LTG Duration 8 weeks + Assessment Summary Assessment pt is doing much better overall, the dynamic stabilization with the band was too much for Malina to tolerate last visit but overall she is doing much better and is in less pain. I did work on adductor and iliopsoas release today and right side was much tighter than the left side. I added in adductor stretch for Malina today Physical Therapy Plan Frequency and Duration Frequency of Treatment 1x/Week Duration of treatment (weeks) 8 Plan of Care Start Date 01/24/23 Plan of Care End Date 03/21/23 Therapeutic Interventions Therapeutic Interventions Home Exercise Program,Joint Mobilizations,Manual Therapy, Self-Care/Home Management,Soft Tissue Mobilization, Therapeutic Exercises Modalities Biofeedback Next Visit Focus/Plan Next Note Type Treatment Note Next Visit Plan review TA stabilization exercises given today, begin working quadruped, add in lumbar flexion based stretches
--- NOTE | 2023-01-24 17:13 | PT.OPPOC ---
Physical, Occupational & Speech Therapy At [facility] Current Diagnoses Other chronic pain (01/24/23) Pain in right shoulder (01/24/23) Pain in left shoulder (01/24/23) Sacrococcygeal disorders, not elsewhere classified (01/24/23) Other specified disorders of muscle (01/24/23) Visit Care Team Role Provider Type Emerson Mraquez MD Attending Provider Physician Family Provider Primary Care Provider Referring Provider Specialty: Internal Medicine Address: [address] [place] [address], [address], [facility] Email: [email or web address] Plan Of Care PT-OP-T Assessment and Plan Start: 11/21/22 13:55 Freq: Status: Active Protocol: Document 01/24/23 17:07 [facility] (Rec: 01/24/23 17:12 [facility] [id number]) Physical Therapy Assessment Goals 3 Impairment iliopsoas tightness as well as lumbar paraspinal guarding on the right Short Term Goal (STG) Correct muscle imbalances and pt is given a home program to work on muscle lengthening on the right GOAL MET STG Duration 4 weeks Needle Board Repairer Goal (LTG) Malina is independent with a HEP for ilioposas and lumbar paraspinal stretching. GOAL MET 2 Impairment SI instability with + ASLR test on the right Short Term Goal (STG) Malina is educated in SI balancing exercises to assist with stabilization of the SI joint GOAL MET STG Duration 4 weeks Needle Board Repairer Goal (LTG) Malina presents with a negative ASLR test and reports decreased c/o SI instability Some improvement but still unlocking from the SI joint. She is wearing a SI belt now and this is really helping LTG Duration 8 weeks + 1 Impairment Malina describes pain in the left SI joint rated 3/10, because of her pain her sleep is reduced by 25%. Pain prevents Malina from engaging in her weight lifting program Halfway Goal (LTG) Malina reports a overall reduction in pain and reports she has no pain with sleeping. Malina is able to return to a weight lifting program using good form without pain excellent progress LTG Duration 8 weeks + Assessment Summary Assessment pt is doing much better overall, the dynamic stabilization with the band was too much for Malina to tolerate last visit but overall she is doing much better and is in less pain. I did work on adductor and iliopsoas release today and right side was much tighter than the left side. I added in adductor stretch for Malina today Physical Therapy Plan Frequency and Duration Frequency of Treatment 1x/Week Duration of treatment (weeks) 8 Plan of Care Start Date 01/24/23 Plan of Care End Date 03/21/23 Therapeutic Interventions Therapeutic Interventions Home Exercise Program,Joint Mobilizations,Manual Therapy, Self-Care/Home Management,Soft Tissue Mobilization, Therapeutic Exercises Modalities Biofeedback Next Visit Focus/Plan Next Note Type Treatment Note Next Visit Plan review TA stabilization exercises given today, begin working quadruped, add in lumbar flexion based stretches Plan of Care Dates Plan of Care Start Date 01/24/23 Plan of Care End Date 03/21/23 Electronically Signed by: Angie Garduno, PT 01/24/23 [id number] If you are in agreement with this Plan of Care, please return a signed and dated copy. I have reviewed this Plan of Care and certify that the skilled therapy services above are required to meet the patient?s needs. Physician Signature Date Printed Name and Credentials Clinical Instructor Signature Printed Name and Credentials
--- NOTE | 2023-01-30 11:15 | PT.OTN ---
Current Diagnoses Other chronic pain (01/30/23) Pain in right shoulder (01/30/23) Pain in left shoulder (01/30/23) Sacrococcygeal disorders, not elsewhere classified (01/30/23) Other specified disorders of muscle (01/30/23) Physical Therapy Treatment Note PT-OP-A Visit Information Start: 11/21/22 13:55 Freq: Status: Active Protocol: Document 01/30/23 10:35 [facility] (Rec: 01/30/23 11:17 [facility] [id number]) Out-Patient Physical Therapy Visit Information Visit Information Visit Type Progress Note Visit Start Time 10:35 Visit Stop Time 11:15 Total Visit Minutes 40 Visit Number 7 PT-OP-B Current Condition Start: 11/21/22 13:55 Freq: Status: Active Protocol: Document 11/22/22 16:02 [facility] (Rec: 11/22/22 17:19 [facility] [id number]) Current Condition History of Current Condition Onset Date 2012 Current Complaints Left sided SI pain and instability History of Current Condition injury 2012 that led to her SI pain, she was doing her normal workouts which was a advanced yoga she did a stretch that really pulled or dislocated her and the next day couldnt walk at all, MRI's showed damage at the left hamstring insertion. At PT diagnosed it was piriformis tightness pinching a nerve and giving her pain. For years she would have to see the chiro 2 xms a week. Now she is finally to the point where she can go longer in between. If she tried to lift her SI will go back out. She recently has started wearing a pelvic belt and that has been a game changer. IF she does ER it will cause her SI to go out, lifts can cause SI and lunges can also cause it to go out. The PT she did was before she was properly diagnosed and address her hamstring Her pain is in the SI joint left side, if she does a exercise and its too much she feels the pain there and it goes straight into her back. She had two vaginal deliveries 2018 and 2020. She experienced left sided hip pain during , now she can sleep in other side but it painful to sleep on her back. She had 4 hours of pushing with her first baby and had a lot of pain after that and feels that she had abdominal seperation. It does feel like it is closed more now but she still gets tenting of her abs . She has bladder control issues now and will leak with jumping. She will have to stop up to 3 times in her workouts now. left shoulder pain with elevation and clicking and she will feel pain if she goes too far back into abduction with ER. She is concerned about causing more damage. This came on more overtime Treatment Goals Patient/Caregiver Goals pt would like to work on stability exercises to help keep it in place, she goes to the chiro every several months PT-OP-C Subjective Start: 11/21/22 13:55 Freq: Status: Active Protocol: Document 01/30/23 10:30 [facility] (Rec: 02/06/23 09:19 [facility] [id number]) OP-PT Subjective Patient Comments Patient Comments Malina reports she is doing better overall and has less pain Patient Reported Progress Improving PT-OP-F Manual Assessment Start: 11/21/22 13:55 Freq: Status: Active Protocol: Document 11/22/22 16:02 [facility] (Rec: 11/22/22 17:19 [facility] [id number]) Manual Assessments Soft Tissue Assessment Soft Tissue Mobility Assessment right iliopsoas tightness with + right anshu test Joint Mobility Assessment Joint Mobility Assessment R SI joint unlocking with ASLR left PT-OP-J Posture/Palpation/Skin Start: 11/21/22 13:55 Freq: Status: Active Protocol: Document 11/22/22 16:02 [facility] (Rec: 11/22/22 17:19 [facility] [id number]) Posture Evaluation Comments Posture Comments pt stands with increased lordosis Palpation Assessment Location left sacral MAYRA Palpation Findings Soft Tissue Tightness Palpation Details tenderness along the left sacral MAYRA border PT-OP-Q Treatments Start: 11/21/22 13:55 Freq: Status: Active Protocol: Document 01/30/23 10:35 [facility] (Rec: 01/30/23 11:17 [facility] [id number]) Therapeutic Exercises Supine Exercises TA with alternating UE/LE Reps/Minutes x10 Comments tactile cueing to avoid lumbar lordosis Anshu Stretches Reps/Minutes 3 x 10 sec ball squeeze with pelvic floor engagement Reps/Minutes 5x 10 sec hold TA with bent knee fall out Reps/Minutes x 10 reps Comments cues for pelvic stability TA with marching Side bilateral Reps/Minutes x 10 reps Comments VC to keep pelvis stable, good carryover Prone Exercises prone knee flexion with stabilization Reps/Minutes x 10 reps Comments progressed to double knee bends without low back arching Other Exercises TA with opp arm and leg lift Reps/Minutes x 10 reps quadruped TA facilitation Reps/Minutes x 10 reps cat cow Reps/Minutes x 10 reps standing adductor release Side bilateral Manual Therapy Treatment Manual Techniques Manual Iliopsoas release Type right side Body Position Supine manual quad MFR Type right quad Body Position Supine Comments in anshu test position PT-OP-T Assessment and Plan Start: 11/21/22 13:55 Freq: Status: Active Protocol: Document 01/30/23 10:35 [facility] (Rec: 01/30/23 11:17 [facility] [id number]) Physical Therapy Assessment Goals 3 Impairment iliopsoas tightness as well as lumbar paraspinal guarding on the right Short Term Goal (STG) Correct muscle imbalances and pt is given a home program to work on muscle lengthening on the right GOAL MET STG Duration 4 weeks Halfway Goal (LTG) Malina is independent with a HEP for ilioposas and lumbar paraspinal stretching. GOAL MET 2 Impairment SI instability with + ASLR test on the right Short Term Goal (STG) Malina is educated in SI balancing exercises to assist with stabilization of the SI joint GOAL MET STG Duration 4 weeks Behavioral Instructor Goal (LTG) Malina presents with a negative ASLR test and reports decreased c/o SI instability Some improvement but still unlocking from the SI joint. She is wearing a SI belt now and this is really helping LTG Duration 8 weeks + 1 Impairment Malina describes pain in the left SI joint rated 3/10, because of her pain her sleep is reduced by 25%. Pain prevents Malina from engaging in her weight lifting program Halfway Goal (LTG) Malina reports a overall reduction in pain and reports she has no pain with sleeping. Malina is able to return to a weight lifting program using good form without pain excellent progress LTG Duration 8 weeks + Assessment Summary Assessment Malina is progressing very well with PT at this point and pain is reduced overall. She is now able to tolerate dynamic lumbar and SI joint stabilization exercises and would benefit from continued PT Physical Therapy Plan Frequency and Duration Frequency of Treatment 1x/Week Duration of treatment (weeks) 8 Plan of Care Start Date 01/24/23 Plan of Care End Date 03/21/23 Next Visit Focus/Plan Next Note Type Treatment Note Next Visit Plan review TA stabilization exercises given today, continue working quadruped, add in lumbar flexion based stretches
--- NOTE | 2023-01-30 11:15 | PT.OPPOC ---
Physical, Occupational & Speech Therapy At [facility] Current Diagnoses Other chronic pain (01/30/23) Pain in right shoulder (01/30/23) Pain in left shoulder (01/30/23) Sacrococcygeal disorders, not elsewhere classified (01/30/23) Other specified disorders of muscle (01/30/23) Visit Care Team Role Provider Type Emerson Marquez MD Attending Provider Physician Family Provider Primary Care Provider Referring Provider Specialty: Internal Medicine Address: [address] [place] [address], [address], [facility] Email: [email or web address] Plan Of Care PT-OP-T Assessment and Plan Start: 11/21/22 13:55 Freq: Status: Active Protocol: Document 01/30/23 10:35 [facility] (Rec: 01/30/23 11:17 [facility] [id number]) Physical Therapy Assessment Goals 3 Impairment iliopsoas tightness as well as lumbar paraspinal guarding on the right Short Term Goal (STG) Correct muscle imbalances and pt is given a home program to work on muscle lengthening on the right GOAL MET STG Duration 4 weeks Bottling Supervisor Goal (LTG) Malina is independent with a HEP for ilioposas and lumbar paraspinal stretching. GOAL MET 2 Impairment SI instability with + ASLR test on the right Short Term Goal (STG) Malina is educated in SI balancing exercises to assist with stabilization of the SI joint GOAL MET STG Duration 4 weeks Bottling Supervisor Goal (LTG) Malina presents with a negative ASLR test and reports decreased c/o SI instability Some improvement but still unlocking from the SI joint. She is wearing a SI belt now and this is really helping LTG Duration 8 weeks + 1 Impairment Malina describes pain in the left SI joint rated 3/10, because of her pain her sleep is reduced by 25%. Pain prevents Malina from engaging in her weight lifting program Long-Term Goal (LTG) Malina reports a overall reduction in pain and reports she has no pain with sleeping. Malina is able to return to a weight lifting program using good form without pain excellent progress LTG Duration 8 weeks + Assessment Summary Assessment Malina is progressing very well with PT at this point and pain is reduced overall. She is now able to tolerate dynamic lumbar and SI joint stabilization exercises and would benefit from continued PT Physical Therapy Plan Frequency and Duration Frequency of Treatment 1x/Week Duration of treatment (weeks) 8 Plan of Care Start Date 01/24/23 Plan of Care End Date 03/21/23 Next Visit Focus/Plan Next Note Type Treatment Note Next Visit Plan review TA stabilization exercises given today, continue working quadruped, add in lumbar flexion based stretches Plan of Care Dates Plan of Care Start Date 01/24/23 Plan of Care End Date 03/21/23 Electronically Signed by: Angie Garduno, PT 02/06/23 0931 If you are in agreement with this Plan of Care, please return a signed and dated copy. I have reviewed this Plan of Care and certify that the skilled therapy services above are required to meet the patient?s needs. Physician Signature Date Printed Name and Credentials Clinical Instructor Signature Printed Name and Credentials
--- NOTE | 2023-02-14 14:37 | PT.OTN ---
Current Diagnoses Other chronic pain (02/14/23) Pain in right shoulder (02/14/23) Pain in left shoulder (02/14/23) Sacrococcygeal disorders, not elsewhere classified (02/14/23) Other specified disorders of muscle (02/14/23) Physical Therapy Treatment Note PT-OP-A Visit Information Start: 11/21/22 13:55 Freq: Status: Active Protocol: Document 02/14/23 11:38 [facility] (Rec: 02/14/23 14:27 [facility] [id number]) Out-Patient Physical Therapy Visit Information Visit Information Visit Type Treatment Note Visit Start Time 11:35 Visit Stop Time 12:15 Total Visit Minutes 40 Visit Number 8 Evaluation Information Evaluation Date 11/22/22 PT-OP-B Current Condition Start: 11/21/22 13:55 Freq: Status: Active Protocol: Document 11/22/22 16:02 [facility] (Rec: 11/22/22 17:19 [facility] [id number]) Current Condition History of Current Condition Onset Date 2012 Current Complaints Left sided SI pain and instability History of Current Condition injury 2012 that led to her SI pain, she was doing her normal workouts which was a advanced yoga she did a stretch that really pulled or dislocated her and the next day couldnt walk at all, MRI's showed damage at the left hamstring insertion. At PT diagnosed it was piriformis tightness pinching a nerve and giving her pain. For years she would have to see the chiro 2 xms a week. Now she is finally to the point where she can go longer in between. If she tried to lift her SI will go back out. She recently has started wearing a pelvic belt and that has been a game changer. IF she does ER it will cause her SI to go out, lifts can cause SI and lunges can also cause it to go out. The PT she did was before she was properly diagnosed and address her hamstring Her pain is in the SI joint left side, if she does a exercise and its too much she feels the pain there and it goes straight into her back. She had two vaginal deliveries 2018 and 2020. She experienced left sided hip pain during , now she can sleep in other side but it painful to sleep on her back. She had 4 hours of pushing with her first baby and had a lot of pain after that and feels that she had abdominal seperation. It does feel like it is closed more now but she still gets tenting of her abs . She has bladder control issues now and will leak with jumping. She will have to stop up to 3 times in her workouts now. left shoulder pain with elevation and clicking and she will feel pain if she goes too far back into abduction with ER. She is concerned about causing more damage. This came on more overtime Treatment Goals Patient/Caregiver Goals pt would like to work on stability exercises to help keep it in place, she goes to the chiro every several months PT-OP-C Subjective Start: 11/21/22 13:55 Freq: Status: Active Protocol: Document 02/14/23 11:38 [facility] (Rec: 02/14/23 12:20 [facility] [id number]) OP-PT Subjective Patient Comments Patient Comments Malina reports her pain is about a 1/10 and she is doing better overall. She has been traveling so hasn't been doing her regular work out routine Patient Reported Progress Improving PT-OP-F Manual Assessment Start: 11/21/22 13:55 Freq: Status: Active Protocol: Document 11/22/22 16:02 [facility] (Rec: 11/22/22 17:19 [facility] [id number]) Manual Assessments Soft Tissue Assessment Soft Tissue Mobility Assessment right iliopsoas tightness with + right marlene test Joint Mobility Assessment Joint Mobility Assessment R SI joint unlocking with ASLR left PT-OP-J Posture/Palpation/Skin Start: 11/21/22 13:55 Freq: Status: Active Protocol: Document 11/22/22 16:02 [facility] (Rec: 11/22/22 17:19 [facility] [id number]) Posture Evaluation Comments Posture Comments pt stands with increased lordosis Palpation Assessment Location left sacral MAYRA Palpation Findings Soft Tissue Tightness Palpation Details tenderness along the left sacral MAYRA border PT-OP-Q Treatments Start: 11/21/22 13:55 Freq: Status: Active Protocol: Document 02/14/23 11:38 [facility] (Rec: 02/14/23 12:20 [facility] [id number]) Therapeutic Exercises Supine Exercises rolling like a ball pilates core exercise Reps/Minutes x 5 reps Comments cues to stabilize with the core and avoid lumbar extension the hundred pilates exercise Reps/Minutes inhale x 5 sec exhale x 5 sec Comments pt shown with knees bent and legs straight ITB stretch Reps/Minutes hold 1-2 min Comments supine and sidelying TA with alternating UE/LE Reps/Minutes x10 Comments tactile cueing to avoid lumbar lordosis TA with marching Side bilateral Reps/Minutes x 10 reps Comments VC to keep pelvis stable, good carryover Other Exercises wag the tail Reps/Minutes x 10 reps Comments feels it on the left side when going to the right TA with opp arm and leg lift Reps/Minutes x 10 reps quadruped TA facilitation Reps/Minutes x 10 reps cat cow Reps/Minutes x 10 reps Manual Therapy Treatment Soft Tissue Mobilization quad release on the right Body Location right quad Mobilization Type Myofascial Release iliopsoas release Body Position Supine Comments release of right iliopsoas Manual Techniques manual quad MFR Type right quad Body Position Supine Comments in marlene test position PT-OP-T Assessment and Plan Start: 11/21/22 13:55 Freq: Status: Active Protocol: Document 02/14/23 14:34 [facility] (Rec: 02/14/23 14:37 [facility] [id number]) Physical Therapy Assessment Assessment Summary Assessment Malina continues to progress well with PT. She is able to stay in alignment at this point and is tolerating additional dynamic stabilization well Physical Therapy Plan Frequency and Duration Frequency of Treatment 1x/Week Duration of treatment (weeks) 8 Plan of Care Start Date 01/24/23 Plan of Care End Date 03/21/23 Therapeutic Interventions Therapeutic Interventions Home Exercise Program,Joint Mobilizations,Manual Therapy, Self-Care/Home Management,Soft Tissue Mobilization, Therapeutic Exercises Modalities Biofeedback Next Visit Focus/Plan Next Note Type Treatment Note Next Visit Plan review new exercises given at todays visit and continue progressing dynamic lumbar and SI stabilization
--- NOTE | 2023-02-21 16:45 | PT.OTN ---
Current Diagnoses Other chronic pain (02/21/23) Pain in right shoulder (02/21/23) Pain in left shoulder (02/21/23) Sacrococcygeal disorders, not elsewhere classified (02/21/23) Other specified disorders of muscle (02/21/23) Physical Therapy Treatment Note PT-OP-A Visit Information Start: 11/21/22 13:55 Freq: Status: Active Protocol: Document 02/21/23 12:16 [facility] (Rec: 02/21/23 13:04 [facility] [id number]) Out-Patient Physical Therapy Visit Information Visit Information Visit Type Treatment Note Visit Start Time 12:17 Visit Stop Time 13:00 Total Visit Minutes 42 Visit Number 9 PT-OP-B Current Condition Start: 11/21/22 13:55 Freq: Status: Active Protocol: Document 11/22/22 16:02 [facility] (Rec: 11/22/22 17:19 [facility] [id number]) Current Condition History of Current Condition Onset Date 2012 Current Complaints Left sided SI pain and instability History of Current Condition injury 2012 that led to her SI pain, she was doing her normal workouts which was a advanced yoga she did a stretch that really pulled or dislocated her and the next day couldnt walk at all, MRI's showed damage at the left hamstring insertion. At PT diagnosed it was piriformis tightness pinching a nerve and giving her pain. For years she would have to see the chiro 2 xms a week. Now she is finally to the point where she can go longer in between. If she tried to lift her SI will go back out. She recently has started wearing a pelvic belt and that has been a game changer. IF she does ER it will cause her SI to go out, lifts can cause SI and lunges can also cause it to go out. The PT she did was before she was properly diagnosed and address her hamstring Her pain is in the SI joint left side, if she does a exercise and its too much she feels the pain there and it goes straight into her back. She had two vaginal deliveries 2018 and 2020. She experienced left sided hip pain during , now she can sleep in other side but it painful to sleep on her back. She had 4 hours of pushing with her first baby and had a lot of pain after that and feels that she had abdominal seperation. It does feel like it is closed more now but she still gets tenting of her abs . She has bladder control issues now and will leak with jumping. She will have to stop up to 3 times in her workouts now. left shoulder pain with elevation and clicking and she will feel pain if she goes too far back into abduction with ER. She is concerned about causing more damage. This came on more overtime Treatment Goals Patient/Caregiver Goals pt would like to work on stability exercises to help keep it in place, she goes to the chiro every several months PT-OP-C Subjective Start: 11/21/22 13:55 Freq: Status: Active Protocol: Document 02/21/23 12:16 [facility] (Rec: 02/21/23 13:04 [facility] [id number]) OP-PT Subjective Patient Comments Patient Comments She feels tight in her SI joints a bit, she did get a weight work out in and it could be from that Patient Reported Progress Improving PT-OP-F Manual Assessment Start: 11/21/22 13:55 Freq: Status: Active Protocol: Document 11/22/22 16:02 [facility] (Rec: 11/22/22 17:19 [facility] [id number]) Manual Assessments Soft Tissue Assessment Soft Tissue Mobility Assessment right iliopsoas tightness with + right anshu test Joint Mobility Assessment Joint Mobility Assessment R SI joint unlocking with ASLR left PT-OP-J Posture/Palpation/Skin Start: 11/21/22 13:55 Freq: Status: Active Protocol: Document 11/22/22 16:02 [facility] (Rec: 11/22/22 17:19 [facility] [id number]) Posture Evaluation Comments Posture Comments pt stands with increased lordosis Palpation Assessment Location left sacral MAYRA Palpation Findings Soft Tissue Tightness Palpation Details tenderness along the left sacral MAYRA border PT-OP-Q Treatments Start: 11/21/22 13:55 Freq: Status: Active Protocol: Document 02/21/23 12:16 [facility] (Rec: 02/21/23 13:04 [facility] [id number]) Therapeutic Exercises Supine Exercises foam roll stretch Reps/Minutes x4 min rolling like a ball pilates core exercise Reps/Minutes x 5 reps Comments cues to stabilize with the core and avoid lumbar extension the hundred pilates exercise Reps/Minutes inhale x 5 sec exhale x 5 sec Comments pt shown with knees bent and legs straight Anshu Stretches Reps/Minutes 3 x 10 sec TA with marching Side bilateral Reps/Minutes x 10 reps Comments VC to keep pelvis stable, good carryover Other Exercises thread the needle Reps/Minutes x 5 each side dickson pose Reps/Minutes 1-2 min wag the tail Reps/Minutes x 10 reps Comments feels it on the left side when going to the right cat cow Reps/Minutes x 10 reps Manual Therapy Treatment Soft Tissue Mobilization STM of the gluteals and attachments to the sacrum Mobilization Type Myofascial Release Intensity/Depth Moderate Body Position Prone Comments pt was tight and guarded in the piriformis B today PT-OP-T Assessment and Plan Start: 11/21/22 13:55 Freq: Status: Active Protocol: Document 02/21/23 12:15 [facility] (Rec: 02/26/23 14:23 [facility] [id number]) Physical Therapy Assessment Assessment Summary Assessment Malina wasd tight today in her sacral region but she responded will to STM. She was educated on working on her stretches after her workouts even if she doesn't feel tight afterwards Physical Therapy Plan Frequency and Duration Frequency of Treatment 1x/Week Duration of treatment (weeks) 8 Plan of Care Start Date 01/24/23 Plan of Care End Date 03/21/23 Therapeutic Interventions Therapeutic Interventions Home Exercise Program,Joint Mobilizations,Manual Therapy, Self-Care/Home Management,Soft Tissue Mobilization, Therapeutic Exercises Modalities Biofeedback Next Visit Focus/Plan Next Note Type Treatment Note Next Visit Plan review all core exercises and home stretching program
--- NOTE | 2023-04-16 09:24 | PT.OPDS ---
Current Diagnoses Other chronic pain (02/21/23) Pain in right shoulder (02/21/23) Pain in left shoulder (02/21/23) Sacrococcygeal disorders, not elsewhere classified (02/21/23) Other specified disorders of muscle (02/21/23) Visit Care Team Role Provider Type Emerson Marquez MD Attending Provider Physician Family Provider Primary Care Provider Referring Provider Specialty: Internal Medicine Address: [address] [place] [address], [address], [facility] Email: [email or web address] Visit Number Visit Number 9 Discharge Summary PT-OP-B Current Condition Start: 11/21/22 13:55 Freq: Status: Active Protocol: Document 11/22/22 16:02 [facility] (Rec: 11/22/22 17:19 [facility] [id number]) Current Condition History of Current Condition Onset Date 2012 Current Complaints Left sided SI pain and instability History of Current Condition injury 2012 that led to her SI pain, she was doing her normal workouts which was a advanced yoga she did a stretch that really pulled or dislocated her and the next day couldnt walk at all, MRI's showed damage at the left hamstring insertion. At PT diagnosed it was piriformis tightness pinching a nerve and giving her pain. For years she would have to see the chiro 2 xms a week. Now she is finally to the point where she can go longer in between. If she tried to lift her SI will go back out. She recently has started wearing a pelvic belt and that has been a game changer. IF she does ER it will cause her SI to go out, lifts can cause SI and lunges can also cause it to go out. The PT she did was before she was properly diagnosed and address her hamstring Her pain is in the SI joint left side, if she does a exercise and its too much she feels the pain there and it goes straight into her back. She had two vaginal deliveries 2018 and 2020. She experienced left sided hip pain during , now she can sleep in other side but it painful to sleep on her back. She had 4 hours of pushing with her first baby and had a lot of pain after that and feels that she had abdominal seperation. It does feel like it is closed more now but she still gets tenting of her abs . She has bladder control issues now and will leak with jumping. She will have to stop up to 3 times in her workouts now. left shoulder pain with elevation and clicking and she will feel pain if she goes too far back into abduction with ER. She is concerned about causing more damage. This came on more overtime Treatment Goals Patient/Caregiver Goals pt would like to work on stability exercises to help keep it in place, she goes to the chiro every several months PT-OP-C Subjective Start: 11/21/22 13:55 Freq: Status: Active Protocol: Document 02/21/23 12:16 [facility] (Rec: 02/21/23 13:04 [facility] [id number]) OP-PT Subjective Patient Comments Patient Comments She feels tight in her SI joints a bit, she did get a weight work out in and it could be from that Patient Reported Progress Improving PT-OP-F Manual Assessment Start: 11/21/22 13:55 Freq: Status: Active Protocol: Document 11/22/22 16:02 [facility] (Rec: 11/22/22 17:19 [facility] [id number]) Manual Assessments Soft Tissue Assessment Soft Tissue Mobility Assessment right iliopsoas tightness with + right marlene test Joint Mobility Assessment Joint Mobility Assessment R SI joint unlocking with ASLR left PT-OP-J Posture/Palpation/Skin Start: 11/21/22 13:55 Freq: Status: Active Protocol: Document 11/22/22 16:02 [facility] (Rec: 11/22/22 17:19 [facility] [id number]) Posture Evaluation Comments Posture Comments pt stands with increased lordosis Palpation Assessment Location left sacral MAYRA Palpation Findings Soft Tissue Tightness Palpation Details tenderness along the left sacral MAYRA border PT-OP-T Assessment and Plan Start: 11/21/22 13:55 Freq: Status: Active Protocol: Document 04/16/23 09:22 [facility] (Rec: 04/16/23 09:24 [facility] [id number]) Physical Therapy Assessment Goals 3 Impairment iliopsoas tightness as well as lumbar paraspinal guarding on the right Short Term Goal (STG) Correct muscle imbalances and pt is given a home program to work on muscle lengthening on the right GOAL MET STG Duration 4 weeks Detention Goal (LTG) Malina is independent with a HEP for ilioposas and lumbar paraspinal stretching. 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 She is wearing a SI belt now and this is really helping LTG Duration 8 weeks + 1 Impairment Malina describes pain in the left SI joint rated 3/10, because of her pain her sleep is reduced by 25%. Pain prevents Malina from engaging in her weight lifting program Detention Goal (LTG) Malina reports a overall reduction in pain and reports she has no pain with sleeping. Malina is able to return to a weight lifting program using good form without pain excellent progress LTG Duration 8 weeks + Assessment Summary Assessment As of her last PT visit Malina was tight in her sacral region but she responded will to STM. She was educated on working on her stretches after her workouts even if she doesn't feel tight afterwards. She has not been seen since February 21 and is now outside the plan of care. She will be discontinued at this time Physical Therapy Plan Discharge Physical Therapy Discharge Reasons No Longer Attending PT
== END 2023-04-17 15:53 | disposition home or self-care (01) ==
LOC: PHYS 12:15
PROVIDERS: Family Provider Student in an Organized Health Care Education/Training Program; PCP Student in an Organized Health Care Education/Training Program; Referring Provider Student in an Organized Health Care Education/Training Program; Visit Provider Student in an Organized Health Care Education/Training Program
DX: M53.3 Sacrococcygeal disorders, not elsewhere classified (principal); G89.29 Other chronic pain; M25.511 Pain in right shoulder; M25.512 Pain in left shoulder; M62.89 Other specified disorders of muscle
CPT/HCPCS: 97110; 97140; 97161; 97535

== ENCOUNTER 2023-04-08 06:23 | Emergency (ER) | payer BC, SELFPAY ==
[2023-04-08] VITALS (8 sets, daily range): BP systolic 99–113; BP diastolic 61–71; PULSE 74–86; RESP 16; TEMP 36.3; O2SAT 97–100; BMI 20.5
--- NOTE | 2023-04-08 07:18 | ED_ITS ---
HPI - Extremity Injury (Lower) General Chief Complaint: Extremity Injury, Lower Stated Complaint: swollen in thigh area causing numbness Time Seen by Provider: 04/08/23 06:48 Source: patient Mode of arrival: Ambulatory History of Present Illness HPI Narrative: 42-year-old female nonsmoker and otherwise healthy presents with a chief complaint of increasing pain and swelling of her bilateral medial thighs after a lengthy hoarse ride a few days ago. She states that she had written for her 1st time in about 10 years and did it for way too long and felt some discomfort over the course of the day but it has progressively worsened. Over the night she started noticing numbness and tingling in her feet which is what prompted her visit here. She denies any traumatic injury. She has no chest pain or shortness of breath. She is had no fever or chills. She denies abdominal pain or difficulty urinating. Related Data Home Medications Medication Instructions Recorded Confirmed prenat.vits,percy,[id number] 1 tab PO DAILY 06/22/20 11/28/22 levonorgestrel 21 mcg/24 hours (8 intrauterine 12/19/21 11/28/22 yrs) 52 mg intrauterine device (Mirena) Previous Rx's Medication Instructions Recorded ketorolac 10 mg tablet 10 mg PO Q6H PRN pain #30 tabs 04/08/23 Allergies Allergy/AdvReac Type Severity Reaction Status Date / Time ciprofloxacin [From CIPRO] Allergy Mild Lip Verified 11/28/22 15:55 tingling. hazelnut Allergy Mild Swelling Verified 11/28/22 15:55 of Lip/Tongue/Throat nitrofurantoin Allergy Mild Hives/rash Verified 11/28/22 15:55 [From MACROBID] Review of Systems Review of Systems Narrative: GENERAL: Denies chills, fatigue, malaise, fever, sweats. HEENT: Denies sinus pain, ear pain, sore throat, difficulty swallowing, dizziness. RESPIRATORY: Denies dyspnea, cough, wheezing, hemoptysis, sputum. CARDIOVASCULAR: Denies chest pain, palpitations, orthopnea, edema, GASTROINTESTINAL: Denies nausea, vomiting, abdominal pain, diarrhea, constipation, melena. : Denies dysuria, frequency, incontinence, hematuria, urinary retention. MUSCULOSKELETAL: See HPI SKIN: Denies rash, skin lesions, or other NEUROLOGIC: Denies weakness, headache, numbness, change in speech, confusion, seizures, incoordination. PSYCHIATRIC: No concerning psychosocial issues. 12 point review of systems is negative except for those stated above Patient History Medical History Chicken pox (1988) Essential thrombocytosis Keratosis pilaris (~2011) Migraines (~2011) Mononucleosis (~1997) Thrombocytopenia UTI (urinary tract infection) (~2012) Surgical History Anesthesia History of third molar tooth extraction (1999) History of tonsillectomy (1987) Family History Father Age: 67 Hypertension High cholesterol Diabetes mellitus History of anesthesia reaction Grandfather Age: 88 Hypertension High cholesterol Arthritis Cancer Mother Age: 65 Hypertension High cholesterol Diabetes mellitus Grandmother Age: 90 Hypertension High cholesterol Diabetes mellitus Alzheimer's disease Brother Hypertension Grandmother Alzheimer's disease Grandfather Glaucoma Social History marital status: Smoking Status: Never smoker Smoking Status: Never smoker alcohol intake frequency: a few times a week Substance Use Type: does not use Exam Narrative Exam Narrative: GENERAL: [42] year old patient appears stated age. Well-developed patient, in mild distress. HEAD: Atraumatic. Normocephalic. EYES: Pupils equal round and reactive. Extraocular motions intact. No scleral icterus. No injection or drainage. ENT: Nose without bleeding, purulent drainage. Throat without erythema, tonsillar hypertrophy or exudate. Airway patent. NECK: Trachea midline. Non tender CARDIOVASCULAR: Regular rate and rhythm without murmurs, gallops, or rubs. RESPIRATORY: Clear to auscultation. Breath sounds equal bilaterally. No wheezes, rales, or rhonchi. GASTROINTESTINAL: Abdomen soft, non-tender, nondistended. EXTREMITIES: Minimal bilateral medial thighs swelling, no erythema, induration, compartments soft, bilateral lower extremities 5/5 strength, patellar reflexes 2+ bilaterally, cap refill and dorsalis pedis pulses intact. Patient reports some tingling on the dorsum and lateral aspect of her left foot BACK: Nontender without deformity or crepitance. No flank tenderness. NEURO: AOx3. SKIN: No rash or erythema of visible areas Initial Vital Signs Initial Vital Signs: Vital Signs Temperature 97.4 F L 04/08/23 06:31 Respiratory Rate 16 04/08/23 06:31 Blood Pressure 109/70 04/08/23 06:31 Pulse Oximetry 100 04/08/23 06:31 Oxygen Delivery Method Room Air 04/08/23 06:31 Course Orders Ordered: Discontinued Medications Ketorolac Tromethamine (Ketorolac 30 Mg/Ml Vial) 30 mg IM NOW ONE Stop: 04/08/23 08:09 Last Admin: 04/08/23 08:40 Dose: 30 mg Documented By: CATHLEEN Vital Signs Vital signs: Vital Signs - 8 hr 04/08/23 06:31 04/08/23 07:55 Temperature 97.4 F L Pulse Rate 86 Respiratory Rate 16 Blood Pressure 109/70 Pulse Oximetry 100 98 Oxygen Delivery Method Room Air Room Air MDM - Extremity Injury (Lower) Lab Data Labs: Lab Results 04/08/23 Range/Units 07:54 Urine RBC None seen (0-5/HPF) Urine WBC None seen (0-5/HPF) Ur Squamous Epith Cells 1-5 /hpf (0-5/HPF) Urine Bacteria None seen (None) Ur Culture Indicated? Cult not indicated Urine Dip Bedside Urine Glucose Negative Bedside Urine Bilirubin - Negative Bedside Urine Ketone - Negative Urine Specific English 1.005 Bedside Urine Occult Blood +/- Bedside Urine pH 6.0 Bedside Urine Protein - Negative Bedside Urine Urobilinogen - Negative Bedside Urine Nitrite - Negative Bedside Urine Leukocytes - Negative Esterase MDM Narrative Medical decision making narrative: CC: 42-year-old female with thigh swelling and left foot numbness after riding her horse Complicating co-morbidities: None known Data collected from: Patient Medical records reviewed: Prior notes reviewed in our EMR Differential considered, but not limited to: Mild early lumbar radiculopathy versus traumatic swelling versus cellulitis versus DVT versus other Exam documented above, pertinent findings include: Heart rate regular, lungs clear, abdomen soft, no signs of cauda equina, no signs of cellulitis such as redness, swelling or induration Imaging studies independently reviewed: Lumbar x-ray demonstrates, peripheral ultrasound demonstrates Treatments: Toradol Re-evaluations: Some improvement Discussion: Patient presents with gradually worsening swelling on her medial thighs after a long ride on [employer] for the 1st time in many years. Multiple d iagnoses considered as noted above. Compartments are soft, no redness or warmth to suggest cellulitis, no evidence of compartment syndrome. She does have minimal low back pain and there is some question about potential mild radiculopathy given the tingling in her toes. DVT considered but no evidence based on imaging. Inflammatory another soft tissue injury considered to be the most likely, discussed the use anti-inflammatories expected resolution over the course of the week or so. Follow up with her primary care and return for worsening or persistent symptoms Disposition: see below, along with detailed discharge instructions that have been reviewed with patient as well as indications for ED re-evaluation and additional outpatient follow up Discharge Plan Departure Patient Disposition: Home Clinical Impression: Bilateral edema of lower extremity, Numbness and tingling of both lower extremities Instructions: DI for Peripheral Edema -- Bilateral Activity Restrictions/Additional Instructions: *You have been diagnosed with [Bilateral lower extremity edema and mild paresthesia. As we discussed your history and physical exam are reassuring and there is no sign of deep vein clot on ultrasound. Additionally, your x-ray shows no obvious abnormality of your lumbar spine.] *What to do: *Please continue to take your regular medications as directed. [ x] New medication prescriptions sent to your pharmacy: [ [facility]] [ ] New medication written as a paper prescription [ ] No new medications given *Please follow up with your primary care provider in 2-3 days, call for an appointment. Let them know you were seen in the Emergency Department and that we ask that you be seen in follow up. We will electronically transmit a record of today's note if your PCP is in our syste *Return to Emergency Department if you should have any new, worsening or concerning symptoms, such as [fever greater than 101 F, shaking chills, worsening pain, persistent vomiting or other bothersome symptoms] Prescriptions: New ketorolac 10 mg tablet 10 mg PO Q6H PRN (Reason: pain) Qty: 30 0RF No Action prenat.vits,percy,[id number]-[id number] Tablet 1 tab PO DAILY Mirena 20 mcg/24 hours (7 yrs) 52 mg intrauterine device intrauterine Referrals: Emerson Marquez MD [Primary Care Provider] - Stand Alone Forms: Patient Portal/API
[2023-04-08 08:00] LABS: Bacteria Urine None Seen; Culture Indicated Urine Cult Not Indicated; RBC Urine None Seen (0-5/HPF); Squamous Epithelial Cell Urine 1-5 /HPF (0-5/HPF); WBC Urine None Seen (0-5/HPF)
--- NOTE | 2023-04-08 08:08 | DI.RAD.S_ITS ---
PROCEDURE: XR LUMBAR SPINE 2-3V INDICATIONS: pain TECHNIQUE: 3 views of the lumbar spine were acquired. COMPARISON: None. FINDINGS: Bones: Sacralization of the L5 vertebral body. Normal bone alignment and disc spacing. No vertebral body fractures. Soft tissues: Overlying bowel gas pattern is normal. No suspicious soft tissue calcifications. IUD incidentally noted. IMPRESSION: 1. Normal lumbar spine with sacralization of L5. Dictated by: Kathy Martins M.D. on 04/08/2023 at 8:54 Approved by: Kathy Martins M.D. on 04/08/2023 at 8:56
--- NOTE | 2023-04-08 08:08 | DI.US.S_ITS ---
PROCEDURE: US PERIPH VENOUS LOW EXTREM LT INDICATIONS: LEFT LEG THIGH/ SWELLING INTO CALF TECHNIQUE: Real-time imaging, as well as color and pulse Doppler interrogation, were performed of the lower extremity deep veins from the inguinal ligament to the popliteal fossa. COMPARISON: None. FINDINGS: The common femoral, femoral and popliteal veins are normally compressible, and free of intraluminal thrombus. Color and pulse Doppler demonstrate normal phasic intraluminal flow. There is normal augmentation response to distal compression maneuver. IMPRESSION: 1. No DVT in the left lower extremity. Dictated by: Kathy Martins M.D. on 04/08/2023 at 9:10 Approved by: Kathy Martins M.D. on 04/08/2023 at 9:11
[2023-04-08] MEDS: KETOROLAC 30 MG/ML VIAL IM (08:40)
== END 2023-04-08 10:02 | disposition home or self-care (01) ==
PROVIDERS: Emergency Provider Emergency Medicine; Family Provider Student in an Organized Health Care Education/Training Program; PCP Student in an Organized Health Care Education/Training Program
DX: R60.0 Localized edema (principal); R20.0 Anesthesia of skin
CPT/HCPCS: 72100; 81003; 81015; 93971; 96372; 99283; 99284; J1885

== ENCOUNTER → 2023-09-10 12:31 | Outpatient (CLI) | payer BC, SELFPAY ==
[2023-09-10 14:22] LABS: Add Manual Diff / Slide Review NO; Basophils Absolute Auto 100 /uL (0-100); Basophils Percent Auto 0.8 % (0-2); Eosinophils Absolute Auto 200 /uL (0-450); Eosinophils Percent Auto 1.2 % (2-4); Hematocrit 37.8 % (36-46); Hemoglobin 12.7 g/dL (12.0-16.0); Lymphocytes Absolute Auto 2500 /uL (1100-4500); Lymphocytes Percent Auto 20.5 % (25-40); Mean Corpuscular HGB Conc 33.5 % (30-36); Mean Corpuscular Hemoglobin 30.6 PG (26-34); Mean Corpuscular Volume 91.3 fL (80-100); Monocytes Absolute Auto 1200 /uL (0-900); Monocytes Percent Auto 9.5 % (3-14); Neutrophils Absolute Auto 8300 /uL (1500-7000); Platelet Count 386 X10^3/uL (150-400); Red Blood Cell Count 4.14 X10^6/uL (4.0-5.2); White Blood Cell Count 12.2 X10^3/uL (4.5-11.0)
== END ==
LOC: LAB 12:32
PROVIDERS: Family Provider Student in an Organized Health Care Education/Training Program; PCP Student in an Organized Health Care Education/Training Program; Referring Provider Student in an Organized Health Care Education/Training Program; Visit Provider Student in an Organized Health Care Education/Training Program
DX: R53.83 Other fatigue (principal)
CPT/HCPCS: 36415; 85025

== ENCOUNTER → 2023-09-27 14:53 | Outpatient (CLI) | payer BC, SELFPAY ==
--- NOTE | 2023-09-27 14:54 | DI.RAD.S_ITS ---
PROCEDURE: XR CHEST 2V INDICATIONS: congestion TECHNIQUE: 2 views of the chest were acquired. COMPARISON: None. FINDINGS: Surgical changes and devices: None. Lungs and pleura: Very minimal appearance increased opacity in the right base. Mediastinum: Mediastinal contours are normal. Heart size is normal. Bones and chest wall: No suspicious bony abnormalities. Soft tissues appear unremarkable. IMPRESSION: Very minimal increased right basilar opacity. This could be service representative of edema, atelectasis or potentially developing pneumonia. Dictated by: Samantha Bunch M.D. on 09/27/2023 at 15:12 Approved by: Samantha Bunch M.D. on 09/27/2023 at 15:12
== END ==
PROVIDERS: Family Provider Student in an Organized Health Care Education/Training Program; PCP Student in an Organized Health Care Education/Training Program; Referring Provider Student in an Organized Health Care Education/Training Program; Visit Provider Student in an Organized Health Care Education/Training Program
DX: J01.90 Acute sinusitis, unspecified (principal); R05.9 Cough, unspecified
CPT/HCPCS: 71046

== ENCOUNTER → 2024-01-23 15:30 | Outpatient (CLI) | payer BC, SELFPAY ==
--- NOTE | 2024-01-23 | DI.MG.S_ITS ---
BILATERAL DIGITAL SCREENING MAMMOGRAM 3D/2D WITH CAD: 01/23/2024 CLINICAL: Routine screening. Comparison is made to exam dated: 11/22/2022 mammogram - [facility]. Both breasts are heterogeneously dense, which may obscure small masses (category c / 51-75% glandular tissue). Current study was also evaluated with a Computer Aided Detection (CAD) system. No significant masses, calcifications, or other findings are seen in either breast. There has been no significant interval change. IMPRESSION: NEGATIVE There is no mammographic evidence of malignancy. A 1 year screening mammogram is recommended. Based on the Tyrer Cuzick model (a risk assessment model) the patient's lifetime risk is 16.8% and her 10 year risk is 2.4%. According to the ACR, ACS, and NCCN guidelines, an annual breast MRI exam along with mammogram is recommended if the patient's lifetime risk is 20% or greater. This exam was interpreted at Station ID: [id number]. NOTE: For mammograms, a report in lay terms will be sent to the patient. Approximately 15% of breast malignancies will not be visualized mammographically. In the management of a palpable breast mass, a negative mammogram must not discourage biopsy of a clinically suspicious lesion. Electronically Signed By: Viraj jennings/dunia:01/24/2024 08:31:37 letter sent: Normal Exam ACR BI-RADS Category 1: Negative [id number]
== END ==
PROVIDERS: Family Provider Student in an Organized Health Care Education/Training Program; PCP Student in an Organized Health Care Education/Training Program; Referring Provider Student in an Organized Health Care Education/Training Program; Visit Provider Student in an Organized Health Care Education/Training Program
DX: Z12.31 Encounter for screening mammogram for malignant neoplasm of breast (principal); R92.333 Mammographic heterogeneous density, bilateral breasts
CPT/HCPCS: 77063; 77067

== ENCOUNTER → 2024-09-19 10:32 | Outpatient (CLI) | payer BC, SELFPAY ==
[2024-09-19 11:47] LABS: Influenza A - CEPHEID Flu A NEGATIVE (NEGATIVE); Influenza B - CEPHEID Flu B NEGATIVE (NEGATIVE); Respiratory Syncytial Virus Negative (Negative)
[2024-09-19 11:49] LABS: COVID-19 CEPHEID 4-PLEX PCR Negative (Negative)
== END ==
PROVIDERS: Family Provider Student in an Organized Health Care Education/Training Program; PCP Student in an Organized Health Care Education/Training Program; Visit Provider Physician Assistant
DX: R05.1 Acute cough (principal)
CPT/HCPCS: 0241U

== ENCOUNTER → 2024-09-19 13:36 | Outpatient (CLI) | payer BC, SELFPAY ==
--- NOTE | 2024-09-19 13:38 | DI.RAD.S_ITS ---
PROCEDURE: XR CHEST 2V INDICATIONS: chest congestion TECHNIQUE: 2 views of the chest were acquired. COMPARISON: [facility], CR, XR CHEST 2V, 09/27/2023, 15:02. FINDINGS: Surgical changes and devices: None. Lungs and pleura: Lungs are clear. No pleural effusions or pneumothorax. Mediastinum: Mediastinal contours are normal. Heart size is normal. Bones and chest wall: No suspicious bony abnormalities. Soft tissues appear unremarkable. IMPRESSION: No acute cardiothoracic process. Dictated by: Anibal Garcia M.D. on 09/20/2024 at 20:45 Approved by: Anibal Garcia M.D. on 09/20/2024 at 20:45
== END ==
PROVIDERS: Family Provider Student in an Organized Health Care Education/Training Program; PCP Student in an Organized Health Care Education/Training Program; Referring Provider Physician Assistant; Visit Provider Physician Assistant
DX: R05.1 Acute cough (principal)
CPT/HCPCS: 0241U; 71046

== ENCOUNTER → 2024-10-08 08:44 | Outpatient (CLI) | payer BC, SELFPAY ==
[2024-10-08 09:10] LABS: Add Manual Diff / Slide Review NO; Basophils Absolute Auto 100 /uL (0-100); Basophils Percent Auto 1.3 % (0-2); Eosinophils Absolute Auto 300 /uL (0-450); Eosinophils Percent Auto 5.4 % (2-4); Hematocrit 40.6 % (36-46); Hemoglobin 13.5 g/dL (12.0-16.0); Lymphocytes Absolute Auto 2400 /uL (1100-4500); Lymphocytes Percent Auto 42.3 % (25-40); Mean Corpuscular HGB Conc 33.3 % (30-36); Mean Corpuscular Hemoglobin 30.3 PG (26-34); Mean Corpuscular Volume 90.9 fL (80-100); Monocytes Absolute Auto 400 /uL (0-900); Neutrophils Absolute Auto 2400 /uL (1500-7000); Platelet Count 385 X10^3/uL (150-400); Red Blood Cell Count 4.47 X10^6/uL (4.0-5.2); Red Cell Distribution Width 11.8 % (11.6-14.8); White Blood Cell Count 5.6 X10^3/uL (4.5-11.0)
[2024-10-08 09:38] LABS: Alanine Aminotransferase 15 IU/L (<35); Albumin 4.5 g/dL (3.5-5.0); Albumin Globulin Ratio 1.9 (1.0-2.8); Alkaline Phosphatase 69 U/L (38-126); Aspartate Aminotransferase 25 IU/L (14-36); Bilirubin Total 1.5 mg/dL (0.2-1.3); Blood Urea Nitrogen 17 mg/dL (7-17); Calcium 9.4 mg/dL (8.4-10.2); Carbon Dioxide 28 mmol/L (22-32); Chloride 102 mmol/L (98-107); Cholesterol 166 mg/dL (140-199); Estimated Glomerular Filt Rate > 60 mL/min (>60); Globulin 2.4 g/dL (1.7-4.1); Glucose 100 mg/dL (70-100); HDL Cholesterol 68 mg/dL (40-60); HEMOLYSIS < 15 (0-50); LDL Cholesterol Calculated 86 mg/dL (<100); Potassium 5.1 mmol/L (3.4-5.1); Sodium 137 mmol/L (137-145); Total Protein 6.9 g/dL (6.3-8.2); Triglycerides 61 mg/dL (35-150)
[2024-10-08 10:07] LABS: Thyroid Stimulating Hormone 1.05 uIU/mL (0.47-4.68)
[2024-10-08 10:13] LABS: Ferritin 59 ng/mL (6-137)
== END ==
LOC: LAB 08:45
PROVIDERS: Family Provider Student in an Organized Health Care Education/Training Program; PCP Student in an Organized Health Care Education/Training Program; Referring Provider Naturopath; Visit Provider Naturopath
DX: Z00.00 Encounter for general adult medical examination without abnormal findings (principal); R53.83 Other fatigue
CPT/HCPCS: 36415; 80053; 80061; 82728; 84443; 85025

== ENCOUNTER 2024-11-19 15:15 | Outpatient (RCR) | payer BC, SELFPAY ==
--- NOTE | 2024-10-15 16:48 | PT.OIE ---
Current Diagnoses Other chronic pain (10/15/24) Other intervertebral disc degeneration, lumbar region with discogenic back pain and lower extremity pain (10/15/24) Sacrococcygeal disorders, not elsewhere classified (10/15/24) Low back pain, unspecified (10/15/24) Muscle weakness (generalized) (10/15/24) Past Medical History (Last Reviewed 06/19/23 @ 18:34 by Trena Elias PA-C) Chicken pox (1988) Essential thrombocytosis Keratosis pilaris (~2011) Migraines (~2011) Mononucleosis (~1997) Thrombocytopenia UTI (urinary tract infection) (~2012) Past Surgical History (Last Reviewed 06/19/23 @ 18:34 by Trena Elias PA-C) Anesthesia History of third molar tooth extraction (1999) History of tonsillectomy (1987) Visit Care Team Role Provider Type Aracelis Guzman MD Attending Provider Physician Family Provider Primary Care Provider Referring Provider Specialty: Family Practice Obstetrics Address: [address] [place] [address] Email: [email or web address] Physical Therapy Initial Evaluation PT-OP-A Visit Information Start: 10/15/24 08:17 Freq: Status: Active Protocol: Document 10/15/24 11:32 [facility] (Rec: 10/15/24 12:00 [facility] [id number]) Out-Patient Physical Therapy Visit Information Visit Information Visit Type Initial Evaluation Visit Start Time 11:30 Visit Stop Time 12:15 Visit Number 1 Evaluation Information Evaluation Date 10/15/24 PT-OP-B Current Condition Start: 10/15/24 08:17 Freq: Status: Active Protocol: Document 10/15/24 11:32 [facility] (Rec: 10/15/24 12:00 [facility] [id number]) Current Condition History of Current Condition Onset Date acute re-injury 3 weeks ago Current Complaints SI joint and low back pain worse on the right side History of Current Condition 3 weeks ago re-aggravated her SI joint and low back while changing her son's sheets. She has gone to the chiropractor 2 times now. This pain is a little higher in her back. She is feeling leg weakness more on the right side than the left and if she can keep competely straight any type of forward bend increases pain. She has a dog and two kids and it has been hard to complete ADL's due to pain She has been working on gentle stretches for her hips She has a work trip planned to [facility] that she needs to be able to go to. At this point she can only sit x 20 min prior to it hurting. She notes leakage with sneeze and cough, its better than what it was 2 years ago. If she has to sneeze or cough she has to cross her legs. She has to empty her bladder fully prior to exercise and has to empty again 15 min later. Every once in a while she will feel pelvic pressure and heaviness especially with straining. She drinks 1 cup of coffee in am and 1 matcha. Treatment Goals Patient/Caregiver Goals Malina's goals include decreasing her pain so she is able to tolerate a work trip to [facility] the end of October Current Functional Impairments (Reported) Functional Limitations- ADL's Malina is limited with activities that require lumbar flexion, lifting her kids, dishes, laundry, and has pain with sitting for work PT-OP-C Subjective Start: 10/15/24 08:17 Freq: Status: Active Protocol: Document 10/15/24 11:30 [facility] (Rec: 10/20/24 16:27 [facility] [id number]) OP-PT Pain Assessment Pain Assessment Grid Paper Pain Assessment Grid Completed Yes Location Right SI region and right hip Pain Location Details acute re-injury 3 weeks ago Intensity 8 Scale Used Numeric (0 - 10) PT-OP-F Manual Assessment Start: 10/15/24 08:17 Freq: Status: Active Protocol: Document 10/15/24 11:30 [facility] (Rec: 10/20/24 16:27 [facility] [id number]) Manual Assessments Soft Tissue Assessment Soft Tissue Mobility Assessment right piriformis tightness and spasm PT-OP-J Posture/Palpation/Skin Start: 10/15/24 08:17 Freq: Status: Active Protocol: Document 10/15/24 11:30 [facility] (Rec: 10/20/24 16:33 [facility] [id number]) Posture Evaluation Comments Posture Comments pt stands in a guarded positions with a posterior pelvic tilt Palpation Assessment Location right low back Palpation Location Right L5-S1 region Palpation Findings Soft Tissue Tightness,Spasm, Muscle Guarding,Tenderness PT-OP-K Range of Motion Start: 10/20/24 16:31 Freq: Status: Active Protocol: Document 10/15/24 11:30 [facility] (Rec: 10/20/24 16:33 [facility] [id number]) Lumbar Spine Range of Motion Lumbar Spine Active Testing Position Standing Flexion 0 Extension 5 Lateral Flexion Left 10 Lateral Flexion Right 10 ROM Limitations Soft Tissue Tightness,Pain Comments pain increases with any lumbar flexion movement, unable to complete ROM tests PT-OP-L Special Tests Start: 10/20/24 16:31 Freq: Status: Active Protocol: Document 10/15/24 11:30 [facility] (Rec: 10/20/24 16:46 [facility] [id number]) Special Tests Lumbar Spine Special Tests Anshu Test Results + Comments right side Straight Leg Raise Test Results + Comments right side with increased c/o pain into the right SI region Standing Flexion Test Results + PT-OP-M Strength Start: 10/20/24 16:31 Freq: Status: Active Protocol: Document 10/15/24 11:30 [facility] (Rec: 10/20/24 16:46 [facility] [id number]) Trunk Strength Trunk Manual Muscle Testing Core Stabilization decreased TA and pelvic floor activation with + november test and ASLR test PT-OP-Q Treatments Start: 10/15/24 08:17 Freq: Status: Active Protocol: Document 10/15/24 11:30 [facility] (Rec: 10/15/24 16:36 [facility] [id number]) Therapeutic Exercises Supine Exercises supine hip abduction with theraband isometrics Reps/Minutes 2 x 10 reps holding 20 seconds supine ball squeeze with pelvic floor contraction Reps/Minutes hold 5 seconds and repeat 10 times PT-OP-T Assessment and Plan Start: 10/15/24 08:17 Freq: Status: Active Protocol: Document 10/15/24 11:30 [facility] (Rec: 10/20/24 16:44 [facility] [id number]) Physical Therapy Assessment Rehab Potential Rehabilitation Potential Excellent Evaluation Complexity Number of Personal Factors/Comorbidities 1-2 Number of Body Systems Impaired 1-2 Clinical Presentation at Evaluation Evolving Impairments Impairments Activity Tolerance,Functional Activities,Pain,Posture,ROM, Soft Tissue Mobility,Strength Goals 3 Impairment iliopsoas tightness as well as lumbar paraspinal guarding on the right with severly limited lumbar ROM into flexion due to pain Short Term Goal (STG) Malina is educated in gentle back and hip mobility exercises she is able to tolerate to decrease the restrictions in her hip and low back STG Duration 4 weeks 2 Impairment SI instability with + ASLR test on the right Short Term Goal (STG) Malina is educated in pelvic bracing exercises for her SI joint and lumbar spine STG Duration 4 weeks 1 Impairment Malina describes pain in the R>L low back limiting her from doing any bending, lifting her kids, dishes, laundry and sitting for longer than 10 min Short Term Goal (STG) Malina is educated on a back care program for stabilization and shown proper body mechanics for lifting her kids as well as her suitcase she will need to lift before her work trip STG Duration 3 weeks Hide And Skin Classer Goal (LTG) Malina reports a overall decrease in lumbar pain and is able to return to ADL without pain LTG Duration 8 weeks Assessment Summary Assessment Malina is a 44 year old female who presents with a acute re-injury of her low back as well as SI joint pain. She is presenting with symptoms of a Right L5-S1 disc bulge with radicular symptoms and weakness right LE. She is unable to forward flex without out significant pain and is having difficulty with ADL's and taking care of her kids. She has a work trip to [facility] coming up the end of October and may benefit from a steriod injection prior so she can handle the travel. She presents with SI instability and + november test and is weaker on the right side as well as radicular symptoms with SLR test I started Malina with SI balancing core exercises today and she tolerated these well. We will work towards improving lumbar ROM, taking pressure off the disc and stabilizing her as much as we can prior to her leaving for her work trip. Malina is a good candidate for PT
--- NOTE | 2024-10-15 16:49 | PT.OPPOC ---
Physical, Occupational & Speech Therapy At [facility] Current Diagnoses Other chronic pain (10/15/24) Other intervertebral disc degeneration, lumbar region with discogenic back pain and lower extremity pain (10/15/24) Sacrococcygeal disorders, not elsewhere classified (10/15/24) Low back pain, unspecified (10/15/24) Muscle weakness (generalized) (10/15/24) Visit Care Team Role Provider Type Aracelis Guzman MD Attending Provider Physician Family Provider Primary Care Provider Referring Provider Specialty: Family Practice Obstetrics Address: [address] [place] [address], [id number] Email: [email or web address] Plan Of Care PT-OP-B Current Condition Start: 10/15/24 08:17 Freq: Status: Active Protocol: Document 10/15/24 11:32 [facility] (Rec: 10/15/24 12:00 [facility] [id number]) Current Condition History of Current Condition Onset Date acute re-injury 3 weeks ago Current Complaints SI joint and low back pain worse on the right side History of Current Condition 3 weeks ago re-aggravated her SI joint and low back while changing her son's sheets. She has gone to the chiropractor 2 times now. This pain is a little higher in her back. She is feeling leg weakness more on the right side than the left and if she can keep completely straight any type of forward bend increases pain. She has a dog and two kids and it has been hard to complete ADL's due to pain She has been working on gentle stretches for her hips She has a work trip planned to [facility] that she needs to be able to go to. At this point she can only sit x 20 min prior to it hurting. She notes leakage with sneeze and cough, its better than what it was 2 years ago. If she has to sneeze or cough she has to cross her legs. She has to empty her bladder fully prior to exercise and has to empty again 15 min later. Every once in a while she will feel pelvic pressure and heaviness especially with straining. She drinks 1 cup of coffee in am and 1 matcha. Treatment Goals Patient/Caregiver Goals Malina's goals include decreasing her pain so she is able to tolerate a work trip to [facility] the end of October Current Functional Impairments (Reported) Functional Limitations- ADL's Malina is limited with activities that require lumbar flexion, lifting her kids, dishes, laundry, and has pain with sitting for work PT-OP-T Assessment and Plan Start: 10/15/24 08:17 Freq: Status: Active Protocol: Document 10/15/24 11:30 [facility] (Rec: 10/20/24 16:44 [facility] [id number]) Physical Therapy Assessment Rehab Potential Rehabilitation Potential Excellent Evaluation Complexity Number of Personal Factors/Comorbidities 1-2 Number of Body Systems Impaired 1-2 Clinical Presentation at Evaluation Evolving Impairments Impairments Activity Tolerance,Functional Activities,Pain,Posture,ROM, Soft Tissue Mobility,Strength Goals 3 Impairment iliopsoas tightness as well as lumbar paraspinal guarding on the right with severely limited lumbar ROM into flexion due to pain Short Term Goal (STG) Malina is educated in gentle back and hip mobility exercises she is able to tolerate to decrease the restrictions in her hip and low back STG Duration 4 weeks 2 Impairment SI instability with + ASLR test on the right Short Term Goal (STG) Malina is educated in pelvic bracing exercises for her SI joint and lumbar spine STG Duration 4 weeks 1 Impairment Malina describes pain in the R>L low back limiting her from doing any bending, lifting her kids, dishes, laundry and sitting for longer than 10 min Short Term Goal (STG) Malina is educated on a back care program for stabilization and shown proper body mechanics for lifting her kids as well as her suitcase she will need to lift before her work trip STG Duration 3 weeks Store Clerk Cashier Goal (LTG) Malina reports a overall decrease in lumbar pain and is able to return to ADL without pain LTG Duration 8 weeks Assessment Summary Assessment Malina is a 44 year old female who presents with a acute re-injury of her low back as well as SI joint pain. She is presenting with symptoms of a Right L5-S1 disc bulge with radicular symptoms and weakness right LE. She is unable to forward flex without out significant pain and is having difficulty with ADL's and taking care of her kids. She has a work trip to [facility] coming up the end of October and may benefit from a steroid injection prior so she can handle the travel. She presents with SI instability and + november test and is weaker on the right side as well as radicular symptoms with SLR test I started Malina with SI balancing core exercises today and she tolerated these well. We will work towards improving lumbar ROM, taking pressure off the disc and stabilizing her as much as we can prior to her leaving for her work trip. Malina is a good candidate for PT Electronically Signed by: Angie Garduno, PT 10/20/24 3354 If you are in agreement with this Plan of Care, please return a signed and dated copy. I have reviewed this Plan of Care and certify that the skilled therapy services above are required to meet the patient?s needs. Physician Signature Date Printed Name and Credentials Clinical Instructor Signature Printed Name and Credentials
--- NOTE | 2024-10-22 16:47 | PT.OTN ---
Current Diagnoses Other chronic pain (10/22/24) Other intervertebral disc degeneration, lumbar region with discogenic back pain and lower extremity pain (10/22/24) Sacrococcygeal disorders, not elsewhere classified (10/22/24) Low back pain, unspecified (10/22/24) Muscle weakness (generalized) (10/22/24) Physical Therapy Treatment Note PT-OP-A Visit Information Start: 10/15/24 08:17 Freq: Status: Active Protocol: Document 10/22/24 13:45 [facility] (Rec: 10/22/24 16:44 [facility] [id number]) Out-Patient Physical Therapy Visit Information Visit Information Visit Type Treatment Note Visit Start Time 13:45 Visit Stop Time 14:30 Visit Number 2 Evaluation Information Evaluation Date 10/15/24 PT-OP-B Current Condition Start: 10/15/24 08:17 Freq: Status: Active Protocol: Document 10/15/24 11:32 [facility] (Rec: 10/15/24 12:00 [facility] [id number]) Current Condition History of Current Condition Onset Date acute re-injury 3 weeks ago Current Complaints SI joint and low back pain worse on the right side History of Current Condition 3 weeks ago re-aggravated her SI joint and low back while changing her son's sheets. She has gone to the chiropractor 2 times now. This pain is a little higher in her back. She is feeling leg weakness more on the right side than the left and if she can keep competely straight any type of forward bend increases pain. She has a dog and two kids and it has been hard to complete ADL's due to pain She has been working on gentle stretches for her hips She has a work trip planned to [facility] that she needs to be able to go to. At this point she can only sit x 20 min prior to it hurting. She notes leakage with sneeze and cough, its better than what it was 2 years ago. If she has to sneeze or cough she has to cross her legs. She has to empty her bladder fully prior to exercise and has to empty again 15 min later. Every once in a while she will feel pelvic pressure and heaviness especially with straining. She drinks 1 cup of coffee in am and 1 matcha. Treatment Goals Patient/Caregiver Goals Malina's goals include decreasing her pain so she is able to tolerate a work trip to [facility] the end of October Current Functional Impairments (Reported) Functional Limitations- ADL's Malina is limited with activities that require lumbar flexion, lifting her kids, dishes, laundry, and has pain with sitting for work PT-OP-C Subjective Start: 10/15/24 08:17 Freq: Status: Active Protocol: Document 10/22/24 13:45 [facility] (Rec: 10/22/24 14:35 [facility] [id number]) OP-PT Subjective Patient Comments Patient Comments pt notes she has less pain and is doing better she got a lumbar pillow, the patches, ice packs and a ceck pillow that attaches to the back of the seat Patient Reported Progress Improving PT-OP-F Manual Assessment Start: 10/15/24 08:17 Freq: Status: Active Protocol: Document 10/15/24 11:30 [facility] (Rec: 10/20/24 16:27 [facility] [id number]) Manual Assessments Soft Tissue Assessment Soft Tissue Mobility Assessment right piriformis tightness and spasm PT-OP-J Posture/Palpation/Skin Start: 10/15/24 08:17 Freq: Status: Active Protocol: Document 10/15/24 11:30 [facility] (Rec: 10/20/24 16:33 [facility] [id number]) Posture Evaluation Comments Posture Comments pt stands in a guarded positions with a posterior pelvic tilt Palpation Assessment Location right low back Palpation Location Right L5-S1 region Palpation Findings Soft Tissue Tightness,Spasm, Muscle Guarding,Tenderness PT-OP-K Range of Motion Start: 10/20/24 16:31 Freq: Status: Active Protocol: Document 10/15/24 11:30 [facility] (Rec: 10/20/24 16:33 [facility] [id number]) Lumbar Spine Range of Motion Lumbar Spine Active Testing Position Standing Flexion 0 Extension 5 Lateral Flexion Left 10 Lateral Flexion Right 10 ROM Limitations Soft Tissue Tightness,Pain Comments pain increases with any lumbar flexion movement, unable to complete ROM tests PT-OP-L Special Tests Start: 10/20/24 16:31 Freq: Status: Active Protocol: Document 10/15/24 11:30 [facility] (Rec: 10/20/24 16:46 [facility] [id number]) Special Tests Lumbar Spine Special Tests Anshu Test Results + Comments right side Straight Leg Raise Test Results + Comments right side with increased c/o pain into the right SI region Standing Flexion Test Results + PT-OP-M Strength Start: 10/20/24 16:31 Freq: Status: Active Protocol: Document 10/15/24 11:30 [facility] (Rec: 10/20/24 16:46 [facility] [id number]) Trunk Strength Trunk Manual Muscle Testing Core Stabilization decreased TA and pelvic floor activation with + november test and ASLR test PT-OP-Q Treatments Start: 10/15/24 08:17 Freq: Status: Active Protocol: Document 10/22/24 13:45 [facility] (Rec: 10/22/24 14:35 [facility] [id number]) Therapeutic Exercises Supine Exercises iliopsoas stretch in supine Reps/Minutes 1 min hold each side single knee to chest Reps/Minutes hold 30 sec per side hamstring flossing Reps/Minutes bend knee x 10 then ankle x 10 supine hip abduction with theraband isometrics Reps/Minutes 2 x 10 reps holding 20 seconds supine ball squeeze with pelvic floor contraction Reps/Minutes hold 5 seconds and repeat 10 times Prone Exercises prone press ups onto forarms Reps/Minutes x 10 reps Standing Exercises standing quad stretch Side bilateral Reps/Minutes holding onto the counter with foot on chair holding 30 seconds B PT-OP-T Assessment and Plan Start: 10/15/24 08:17 Freq: Status: Active Protocol: Document 10/22/24 13:45 [facility] (Rec: 10/22/24 16:44 [facility] [id number]) Physical Therapy Assessment Rehab Potential Rehabilitation Potential Excellent Assessment Summary Assessment Malina is doing better today and pain levels have decreased . I added on some gentle nerve flossing and prone on elbows stretch today and she tolerated this well. We didn 't add any additional exercises as she is traveling to [facility] on saturday. Recheck in when she returns Physical Therapy Plan Frequency and Duration Frequency of Treatment 1x/Week Duration of treatment (weeks) 12 Plan of Care Start Date 10/15/24 Plan of Care End Date 01/06/25 Therapeutic Interventions Therapeutic Interventions Home Exercise Program,Manual Therapy,Patient/Caregiver Education,Self-Care/Home Management,Soft Tissue Mobilization,Therapeutic Activities Next Visit Focus/Plan Next Note Type Treatment Note Next Visit Plan Check in with how Malina is doing after her work travel to [facility]. Begin working on increased lumbar stabilization and pelvic floor strength
--- NOTE | 2024-11-05 16:23 | PT.OTN ---
Current Diagnoses Other chronic pain (11/05/24) Other intervertebral disc degeneration, lumbar region with discogenic back pain and lower extremity pain (11/05/24) Sacrococcygeal disorders, not elsewhere classified (11/05/24) Low back pain, unspecified (11/05/24) Muscle weakness (generalized) (11/05/24) Physical Therapy Treatment Note PT-OP-A Visit Information Start: 10/15/24 08:17 Freq: Status: Active Protocol: Document 11/05/24 15:15 ON LICENSE OF [facility] (Rec: 11/05/24 16:15 ON LICENSE OF [facility] [id number]) Out-Patient Physical Therapy Visit Information Visit Information Visit Type Treatment Note Visit Start Time 15:15 Visit Stop Time 16:00 Visit Number 3 PT-OP-B Current Condition Start: 10/15/24 08:17 Freq: Status: Active Protocol: Document 10/15/24 11:32 [facility] (Rec: 10/15/24 12:00 ON LICENSE OF [facility] [id number]) Current Condition History of Current Condition Onset Date acute re-injury 3 weeks ago Current Complaints SI joint and low back pain worse on the right side History of Current Condition 3 weeks ago re-aggravated her SI joint and low back while changing her son's sheets. She has gone to the chiropractor 2 times now. This pain is a little higher in her back. She is feeling leg weakness more on the right side than the left and if she can keep competely straight any type of forward bend increases pain. She has a dog and two kids and it has been hard to complete ADL's due to pain She has been working on gentle stretches for her hips She has a work trip planned to [facility] that she needs to be able to go to. At this point she can only sit x 20 min prior to it hurting. She notes leakage with sneeze and cough, its better than what it was 2 years ago. If she has to sneeze or cough she has to cross her legs. She has to empty her bladder fully prior to exercise and has to empty again 15 min later. Every once in a while she will feel pelvic pressure and heaviness especially with straining. She drinks 1 cup of coffee in am and 1 matcha. Treatment Goals Patient/Caregiver Goals Malina's goals include decreasing her pain so she is able to tolerate a work trip to [facility] the end of October Current Functional Impairments (Reported) Functional Limitations- ADL's Malina is limited with activities that require lumbar flexion, lifting her kids, dishes, laundry, and has pain with sitting for work PT-OP-C Subjective Start: 10/15/24 08:17 Freq: Status: Active Protocol: Document 11/05/24 15:15 [facility] (Rec: 11/05/24 15:54 ON LICENSE OF [facility] [id number]) OP-PT Subjective Patient Comments Patient Comments Malina returns from her work trip to [facility]. She notes she was able to get into the pool, the flight was the hardest part, she feels 25 percent improvement from where she was. She did a lot of walking there and it felt very therapeutic. Malina notes she can go up stairs now without feeling that week feeling. She has the most difficulty picking up her kids as she notes that irritates her back the most Patient Reported Progress Improving PT-OP-F Manual Assessment Start: 10/15/24 08:17 Freq: Status: Active Protocol: Document 10/15/24 11:30 [facility] (Rec: 10/20/24 16:27 ON LICENSE OF [facility] [id number]) Manual Assessments Soft Tissue Assessment Soft Tissue Mobility Assessment right piriformis tightness and spasm PT-OP-J Posture/Palpation/Skin Start: 10/15/24 08:17 Freq: Status: Active Protocol: Document 10/15/24 11:30 [facility] (Rec: 10/20/24 16:33 ON LICENSE OF [facility] [id number]) Posture Evaluation Comments Posture Comments pt stands in a guarded positions with a posterior pelvic tilt Palpation Assessment Location right low back Palpation Location Right L5-S1 region Palpation Findings Soft Tissue Tightness,Spasm, Muscle Guarding,Tenderness PT-OP-K Range of Motion Start: 10/20/24 16:31 Freq: Status: Active Protocol: Document 10/15/24 11:30 [facility] (Rec: 10/20/24 16:33 ON LICENSE OF [facility] [id number]) Lumbar Spine Range of Motion Lumbar Spine Active Testing Position Standing Flexion 0 Extension 5 Lateral Flexion Left 10 Lateral Flexion Right 10 ROM Limitations Soft Tissue Tightness,Pain Comments pain increases with any lumbar flexion movement, unable to complete ROM tests PT-OP-L Special Tests Start: 10/20/24 16:31 Freq: Status: Active Protocol: Document 10/15/24 11:30 [facility] (Rec: 10/20/24 16:46 ON LICENSE OF [facility] [id number]) Special Tests Lumbar Spine Special Tests Anshu Test Results + Comments right side Straight Leg Raise Test Results + Comments right side with increased c/o pain into the right SI region Standing Flexion Test Results + PT-OP-M Strength Start: 10/20/24 16:31 Freq: Status: Active Protocol: Document 10/15/24 11:30 [facility] (Rec: 10/20/24 16:46 ON LICENSE OF [facility] [id number]) Trunk Strength Trunk Manual Muscle Testing Core Stabilization decreased TA and pelvic floor activation with + march test and ASLR test PT-OP-Q Treatments Start: 10/15/24 08:17 Freq: Status: Active Protocol: Document 11/05/24 15:15 ON LICENSE OF [facility] (Rec: 11/05/24 15:54 ON LICENSE OF [facility] [id number]) Therapeutic Exercises Supine Exercises bridges Reps/Minutes 10 reps TA with heel slide Reps/Minutes x 10 reps each side TA with marches Comments pt had nerve irritation on the left with marches so we held on this iliopsoas stretch in supine Reps/Minutes 1 min hold each side single knee to chest Supine Exercise Name right side tighter than left Reps/Minutes hold 30 sec per side hamstring flossing Reps/Minutes bend knee x 10 then ankle x 10 supine hip abduction with theraband isometrics Reps/Minutes 2 x 10 reps holding 20 seconds supine ball squeeze with pelvic floor contraction Reps/Minutes hold 5 seconds and repeat 10 times Other Exercises quadruped OPP arm lifts Reps/Minutes x 10 reps PT-OP-T Assessment and Plan Start: 10/15/24 08:17 Freq: Status: Active Protocol: Document 11/05/24 15:15 ON LICENSE OF [facility] (Rec: 11/05/24 15:54 ON LICENSE OF [facility] [id number]) Physical Therapy Assessment Goals 3 Impairment iliopsoas tightness as well as lumbar paraspinal guarding on the right Short Term Goal (STG) Malina is educated in gentle back and hip mobility exercises she is able to tolerate to decrease the restrictions in her hip and low back STG Duration 4 weeks 2 Impairment SI instability with + ASLR test on the right Short Term Goal (STG) Malina is educated in pelvic bracing exercises for her SI joint and lumbar spine STG Duration 4 weeks 1 Impairment Malina describes pain in the left SI joint rated 3/10, because of her pain her sleep is reduced by 25%. Pain prevents Malina from engaging in her weight lifting program Short Term Goal (STG) Malina is educated on a back care program for stabilization and shown proper body mechanics for lifting her kids as well as her suitcase she will need to lift before her work trip STG Duration 3 weeks Mcc Goal (LTG) Malina reports a overall decrease in lumbar pain and is able to return to ADL without pain LTG Duration 8 weeks Assessment Summary Assessment Malina is making good overall progress, she still has pain especially with trying to lift her kids. I was able to increase core stabilization exercises today. Malina did have some left sided nerve irritation with supine TA with marches so we switched to TA with heel slides. I added in bridges and quadruped TA with opp arm lifts She tolerated these well. Physical Therapy Plan Frequency and Duration Frequency of Treatment 1x/Week Duration of treatment (weeks) 12 Plan of Care Start Date 10/15/24 Plan of Care End Date 01/06/25 Therapeutic Interventions Therapeutic Interventions Home Exercise Program,Manual Therapy,Patient/Caregiver Education,Self-Care/Home Management,Soft Tissue Mobilization,Therapeutic Activities Next Visit Focus/Plan Next Note Type Treatment Note Next Visit Plan review how Malina does with her stabilization exercises and progress as tolerated
--- NOTE | 2024-11-05 16:24 | PT.OTN ---
Current Diagnoses Other chronic pain (11/05/24) Other intervertebral disc degeneration, lumbar region with discogenic back pain and lower extremity pain (11/05/24) Sacrococcygeal disorders, not elsewhere classified (11/05/24) Low back pain, unspecified (11/05/24) Muscle weakness (generalized) (11/05/24) Physical Therapy Treatment Note PT-OP-A Visit Information Start: 10/15/24 08:17 Freq: Status: Active Protocol: Document 11/05/24 15:15 [facility] (Rec: 11/05/24 16:15 [facility] [id number]) Out-Patient Physical Therapy Visit Information Visit Information Visit Type Treatment Note Visit Start Time 15:15 Visit Stop Time 16:00 Visit Number 3 PT-OP-B Current Condition Start: 10/15/24 08:17 Freq: Status: Active Protocol: Document 10/15/24 11:32 [facility] (Rec: 10/15/24 12:00 [facility] [id number]) Current Condition History of Current Condition Onset Date acute re-injury 3 weeks ago Current Complaints SI joint and low back pain worse on the right side History of Current Condition 3 weeks ago re-aggravated her SI joint and low back while changing her son's sheets. She has gone to the chiropractor 2 times now. This pain is a little higher in her back. She is feeling leg weakness more on the right side than the left and if she can keep competely straight any type of forward bend increases pain. She has a dog and two kids and it has been hard to complete ADL's due to pain She has been working on gentle stretches for her hips She has a work trip planned to [facility] that she needs to be able to go to. At this point she can only sit x 20 min prior to it hurting. She notes leakage with sneeze and cough, its better than what it was 2 years ago. If she has to sneeze or cough she has to cross her legs. She has to empty her bladder fully prior to exercise and has to empty again 15 min later. Every once in a while she will feel pelvic pressure and heaviness especially with straining. She drinks 1 cup of coffee in am and 1 matcha. Treatment Goals Patient/Caregiver Goals Malina's goals include decreasing her pain so she is able to tolerate a work trip to [facility] the end of October Current Functional Impairments (Reported) Functional Limitations- ADL's Malina is limited with activities that require lumbar flexion, lifting her kids, dishes, laundry, and has pain with sitting for work PT-OP-C Subjective Start: 10/15/24 08:17 Freq: Status: Active Protocol: Document 11/05/24 15:15 [facility] (Rec: 11/05/24 15:54 [facility] [id number]) OP-PT Subjective Patient Comments Patient Comments Malina returns from her work trip to [facility]. She notes she was able to get into the pool, the flight was the hardest part, she feels 25 percent improvement from where she was. She did a lot of walking there and it felt very therapeutic. Malina notes she can go up stairs now without feeling that week feeling. She has the most difficulty picking up her kids as she notes that irritates her back the most Patient Reported Progress Improving PT-OP-F Manual Assessment Start: 10/15/24 08:17 Freq: Status: Active Protocol: Document 10/15/24 11:30 [facility] (Rec: 10/20/24 16:27 [facility] [id number]) Manual Assessments Soft Tissue Assessment Soft Tissue Mobility Assessment right piriformis tightness and spasm PT-OP-J Posture/Palpation/Skin Start: 10/15/24 08:17 Freq: Status: Active Protocol: Document 10/15/24 11:30 [facility] (Rec: 10/20/24 16:33 [facility] [id number]) Posture Evaluation Comments Posture Comments pt stands in a guarded positions with a posterior pelvic tilt Palpation Assessment Location right low back Palpation Location Right L5-S1 region Palpation Findings Soft Tissue Tightness,Spasm, Muscle Guarding,Tenderness PT-OP-K Range of Motion Start: 10/20/24 16:31 Freq: Status: Active Protocol: Document 10/15/24 11:30 [facility] (Rec: 10/20/24 16:33 [facility] [id number]) Lumbar Spine Range of Motion Lumbar Spine Active Testing Position Standing Flexion 0 Extension 5 Lateral Flexion Left 10 Lateral Flexion Right 10 ROM Limitations Soft Tissue Tightness,Pain Comments pain increases with any lumbar flexion movement, unable to complete ROM tests PT-OP-L Special Tests Start: 10/20/24 16:31 Freq: Status: Active Protocol: Document 10/15/24 11:30 [facility] (Rec: 10/20/24 16:46 [facility] [id number]) Special Tests Lumbar Spine Special Tests Anshu Test Results + Comments right side Straight Leg Raise Test Results + Comments right side with increased c/o pain into the right SI region Standing Flexion Test Results + PT-OP-M Strength Start: 10/20/24 16:31 Freq: Status: Active Protocol: Document 10/15/24 11:30 [facility] (Rec: 10/20/24 16:46 [facility] [id number]) Trunk Strength Trunk Manual Muscle Testing Core Stabilization decreased TA and pelvic floor activation with + march test and ASLR test PT-OP-Q Treatments Start: 10/15/24 08:17 Freq: Status: Active Protocol: Document 11/05/24 15:15 [facility] (Rec: 11/05/24 15:54 [facility] [id number]) Therapeutic Exercises Supine Exercises bridges Reps/Minutes 10 reps TA with heel slide Reps/Minutes x 10 reps each side TA with marches Comments pt had nerve irritation on the left with marches so we held on this iliopsoas stretch in supine Reps/Minutes 1 min hold each side single knee to chest Supine Exercise Name right side tighter than left Reps/Minutes hold 30 sec per side hamstring flossing Reps/Minutes bend knee x 10 then ankle x 10 supine hip abduction with theraband isometrics Reps/Minutes 2 x 10 reps holding 20 seconds supine ball squeeze with pelvic floor contraction Reps/Minutes hold 5 seconds and repeat 10 times Other Exercises quadruped OPP arm lifts Reps/Minutes x 10 reps PT-OP-T Assessment and Plan Start: 10/15/24 08:17 Freq: Status: Active Protocol: Document 11/05/24 15:15 [facility] (Rec: 11/05/24 15:54 [facility] [id number]) Physical Therapy Assessment Goals 3 Impairment iliopsoas tightness as well as lumbar paraspinal guarding on the right Short Term Goal (STG) Malina is educated in gentle back and hip mobility exercises she is able to tolerate to decrease the restrictions in her hip and low back STG Duration 4 weeks 2 Impairment SI instability with + ASLR test on the right Short Term Goal (STG) Malina is educated in pelvic bracing exercises for her SI joint and lumbar spine STG Duration 4 weeks 1 Impairment Malina describes pain in the left SI joint rated 3/10, because of her pain her sleep is reduced by 25%. Pain prevents Malina from engaging in her weight lifting program Short Term Goal (STG) aMlina is educated on a back care program for stabilization and shown proper body mechanics for lifting her kids as well as her suitcase she will need to lift before her work trip STG Duration 3 weeks Mcc Goal (LTG) Malina reports a overall decrease in lumbar pain and is able to return to ADL without pain LTG Duration 8 weeks Assessment Summary Assessment Malina is making good overall progress, she still has pain especially with trying to lift her kids. I was able to increase core stabilization exercises today. Malina did have some left sided nerve irritation with supine TA with marches so we switched to TA with heel slides. I added in bridges and quadruped TA with opp arm lifts She tolerated these well. Physical Therapy Plan Frequency and Duration Frequency of Treatment 1x/Week Duration of treatment (weeks) 12 Plan of Care Start Date 10/15/24 Plan of Care End Date 01/06/25 Therapeutic Interventions Therapeutic Interventions Home Exercise Program,Manual Therapy,Patient/Caregiver Education,Self-Care/Home Management,Soft Tissue Mobilization,Therapeutic Activities Next Visit Focus/Plan Next Note Type Treatment Note Next Visit Plan review how Malina does with her stabilization exercises and progress as tolerated, trial of stabilization exercises on the ball next visit
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
--- NOTE | 2024-11-19 16:24 | PT.OTN ---
Current Diagnoses Other chronic pain (11/19/24) Other intervertebral disc degeneration, lumbar region with discogenic back pain and lower extremity pain (11/19/24) Sacrococcygeal disorders, not elsewhere classified (11/19/24) Low back pain, unspecified (11/19/24) Muscle weakness (generalized) (11/19/24) Physical Therapy Treatment Note PT-OP-A Visit Information Start: 10/15/24 08:17 Freq: Status: Active Protocol: Document 11/19/24 15:21 [facility] (Rec: 11/19/24 16:23 [facility] [id number]) Out-Patient Physical Therapy Visit Information Visit Information Visit Type Treatment Note Visit Start Time 15:21 Visit Stop Time 16:20 Visit Number 5 PT-OP-B Current Condition Start: 10/15/24 08:17 Freq: Status: Active Protocol: Document 10/15/24 11:32 [facility] (Rec: 10/15/24 12:00 [facility] [id number]) Current Condition History of Current Condition Onset Date acute re-injury 3 weeks ago Current Complaints SI joint and low back pain worse on the right side History of Current Condition 3 weeks ago re-aggravated her SI joint and low back while changing her son's sheets. She has gone to the chiropractor 2 times now. This pain is a little higher in her back. She is feeling leg weakness more on the right side than the left and if she can keep competely straight any type of forward bend increases pain. She has a dog and two kids and it has been hard to complete ADL's due to pain She has been working on gentle stretches for her hips She has a work trip planned to [facility] that she needs to be able to go to. At this point she can only sit x 20 min prior to it hurting. She notes leakage with sneeze and cough, its better than what it was 2 years ago. If she has to sneeze or cough she has to cross her legs. She has to empty her bladder fully prior to exercise and has to empty again 15 min later. Every once in a while she will feel pelvic pressure and heaviness especially with straining. She drinks 1 cup of coffee in am and 1 matcha. Treatment Goals Patient/Caregiver Goals Malina's goals include decreasing her pain so she is able to tolerate a work trip to [facility] the end of October Current Functional Impairments (Reported) Functional Limitations- ADL's Malina is limited with activities that require lumbar flexion, lifting her kids, dishes, laundry, and has pain with sitting for work PT-OP-C Subjective Start: 10/15/24 08:17 Freq: Status: Active Protocol: Document 11/19/24 15:21 [facility] (Rec: 11/19/24 16:23 [facility] [id number]) OP-PT Subjective Patient Comments Patient Comments she is feeling better and can get down on the floor easier, and any flexion still bothers her. She is able to bend her head forward now. SHe still can only walk on flat surfaces and she struggles on a ramp She has a appt with Dr Galindo the end of december to look at cortisone PT-OP-F Manual Assessment Start: 10/15/24 08:17 Freq: Status: Active Protocol: Document 10/15/24 11:30 [facility] (Rec: 10/20/24 16:27 [facility] [id number]) Manual Assessments Soft Tissue Assessment Soft Tissue Mobility Assessment right piriformis tightness and spasm PT-OP-J Posture/Palpation/Skin Start: 10/15/24 08:17 Freq: Status: Active Protocol: Document 10/15/24 11:30 [facility] (Rec: 10/20/24 16:33 [facility] [id number]) Posture Evaluation Comments Posture Comments pt stands in a guarded positions with a posterior pelvic tilt Palpation Assessment Location right low back Palpation Location Right L5-S1 region Palpation Findings Soft Tissue Tightness,Spasm, Muscle Guarding,Tenderness PT-OP-K Range of Motion Start: 10/20/24 16:31 Freq: Status: Active Protocol: Document 10/15/24 11:30 [facility] (Rec: 10/20/24 16:33 [facility] [id number]) Lumbar Spine Range of Motion Lumbar Spine Active Testing Position Standing Flexion 0 Extension 5 Lateral Flexion Left 10 Lateral Flexion Right 10 ROM Limitations Soft Tissue Tightness,Pain Comments pain increases with any lumbar flexion movement, unable to complete ROM tests PT-OP-L Special Tests Start: 10/20/24 16:31 Freq: Status: Active Protocol: Document 10/15/24 11:30 [facility] (Rec: 10/20/24 16:46 [facility] [id number]) Special Tests Lumbar Spine Special Tests Anshu Test Results + Comments right side Straight Leg Raise Test Results + Comments right side with increased c/o pain into the right SI region Standing Flexion Test Results + PT-OP-M Strength Start: 10/20/24 16:31 Freq: Status: Active Protocol: Document 10/15/24 11:30 [facility] (Rec: 10/20/24 16:46 [facility] [id number]) Trunk Strength Trunk Manual Muscle Testing Core Stabilization decreased TA and pelvic floor activation with + march test and ASLR test PT-OP-Q Treatments Start: 10/15/24 08:17 Freq: Status: Active Protocol: Document 11/19/24 15:21 [facility] (Rec: 11/19/24 16:23 [facility] [id number]) Therapeutic Exercises Prone Exercises prone press ups onto forarms Prone Exercise Name HEP Manual Therapy Treatment Soft Tissue Mobilization STM over the lumbar paraspinals and piriformis Comments worked on fascial release over the paraspinals and piriformis muscles Manual Techniques manual LE traction Reps/Duration long axis extension B LE to manual lumbar traction Comments Malina tolerated well manual piriformis stretch Reps/Duration hold 1 min each side manual nerve gliding Comments sciatic nerve glides B PT-OP-T Assessment and Plan Start: 10/15/24 08:17 Freq: Status: Active Protocol: Document 11/19/24 15:21 [facility] (Rec: 11/19/24 16:23 [facility] [id number]) Physical Therapy Assessment Assessment Summary Assessment Malina is still having difficulty with walking on any ramps as this increases her pain. I worked on manual lumbar traction today as well as MFR over the piriforms and lumbar paraspinals. Atrophy noted in the paraspinals and I encouraged Malina to continue with her stabilization exercises as well as prone on elbows for lumbar extension Physical Therapy Plan Frequency and Duration Frequency of Treatment 1x/Week Duration of treatment (weeks) 12 Plan of Care Start Date 10/15/24 Plan of Care End Date 01/06/25 Next Visit Focus/Plan Next Note Type Treatment Note Next Visit Plan continue working on stabilization,manual lumbar traction, nerve glides
== END 2025-03-05 10:46 | disposition home or self-care (01) ==
LOC: PHYS 15:15
PROVIDERS: Family Provider Student in an Organized Health Care Education/Training Program; PCP Student in an Organized Health Care Education/Training Program; Referring Provider Student in an Organized Health Care Education/Training Program; Visit Provider Student in an Organized Health Care Education/Training Program
DX: M53.3 Sacrococcygeal disorders, not elsewhere classified (principal); G89.29 Other chronic pain; M51.362 Other intervertebral disc degeneration, lumbar region with discogenic back pain and lower extremity pain; M62.81 Muscle weakness (generalized); M54.50 Low back pain, unspecified
CPT/HCPCS: 97110; 97140; 97162

== ENCOUNTER → 2024-12-25 11:14 | Outpatient (CLI) | payer BC, SELFPAY ==
--- NOTE | 2024-12-25 11:15 | DI.RAD.S_ITS ---
PROCEDURE: XR LUMBAR SPINE 3V INDICATIONS: BACK PAIN TECHNIQUE: 3 views of the lumbar spine were acquired. COMPARISON: [facility], CR, XR LUMBAR SPINE 2-3V, 04/08/2023, 8:06. FINDINGS: Bones: There is normal bony alignment. No vertebral body compression fractures. No suspicious bony lesions. Soft tissues: Overlying bowel gas pattern is normal. No suspicious soft tissue calcifications. IMPRESSION: No radiographic evidence of acute abnormality. If symptoms persist or worsen, or there is high clinical suspicion of lumbar abnormality, MRI could be performed. Dictated by: Wade Das M.D. on 12/25/2024 at 12:22 Approved by: Wade Das M.D. on 12/25/2024 at 12:24
--- NOTE | 2024-12-25 11:15 | DI.RAD.S_ITS ---
PROCEDURE: XR SACROILIAC JOINT MIN 3V INDICATIONS: SI JOINT PAIN TECHNIQUE: 3 views of the sacroiliac joints were acquired. COMPARISON: None. FINDINGS / IMPRESSION: Mild joint space narrowing and mild sclerotic changes of the sacroiliac joints right greater than left. No radiographic evidence of fracture. T-shaped metallic intrauterine device in place in the mid pelvis. Pattern of constipation. If symptoms persist or worsen, or there is high clinical suspicion of pelvic/sacral abnormality, MRI could be performed. Dictated by: Wade Das M.D. on 12/25/2024 at 12:24 Approved by: Wade Das M.D. on 12/25/2024 at 12:26
== END ==
PROVIDERS: Family Provider Student in an Organized Health Care Education/Training Program; PCP Student in an Organized Health Care Education/Training Program; Referring Provider Physical Medicine & Rehabilitation; Visit Provider Physical Medicine & Rehabilitation
DX: M54.9 Dorsalgia, unspecified (principal); M53.3 Sacrococcygeal disorders, not elsewhere classified; G89.29 Other chronic pain; M48.08 Spinal stenosis, sacral and sacrococcygeal region
CPT/HCPCS: 72110; 72202

== ENCOUNTER → 2025-01-04 16:43 | Outpatient (CLI) | payer BC, SELFPAY ==
--- NOTE | 2025-01-04 16:44 | DI.MRI.S_ITS ---
PROCEDURE: MR LUMBAR SPINE WO CON INDICATIONS: Progressive axial low back pain TECHNIQUE: Noncontrast sagittal T1 spin echo and T2 fast echo, sagittal STIR, and T2 fast spin echo through the lumbar spine. In cases with scoliosis, additional coronal T2 fast spin echo may be performed. COMPARISON: None. FINDINGS: Image quality: Excellent. Alignment and Curvature: There is normal bony alignment. Bone Marrow: Marrow is of normal overall signal. No acute vertebral body compression fractures. Spinal Cord: Conus medullaris terminates at the L1 level. Visualized cord demonstrates normal signal and size. Paraspinous Soft Tissues: No paravertebral masses. T12-L1: Normal appearance. L1-L2: Normal appearance. L2-L3: Normal appearance. L3-L4: Normal appearance. L4-L5: Normal appearance. L5-S1: Normal appearance. IMPRESSION: Normal MRI of the lumbar spine Approved by: Connor Adames M.D. on 01/04/2025 at 17:09
== END ==
PROVIDERS: Family Provider Student in an Organized Health Care Education/Training Program; PCP Student in an Organized Health Care Education/Training Program; Referring Provider Physical Medicine & Rehabilitation; Visit Provider Physical Medicine & Rehabilitation
DX: M47.816 Spondylosis without myelopathy or radiculopathy, lumbar region (principal)
CPT/HCPCS: 72148

== ENCOUNTER 2025-05-18 13:45 | Outpatient (RCR) | payer BC, SELFPAY ==
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
--- NOTE | 2025-04-30 13:50 | PT.OTN ---
Current Diagnoses Cervicalgia (04/30/25) Dorsalgia, unspecified (04/30/25) Physical Therapy Treatment Note PT OP: Cervical/Upper Extremity Start: 04/30/25 12:43 Freq: Status: Active Protocol: Document 04/30/25 13:02 SP (Rec: 04/30/25 13:52 SP [id number]) Out-Patient Physical Therapy Visit Information Visit Information Visit Type Treatment Note Visit Start Time 13:02 Visit Stop Time 13:50 Visit Number 6 Number of TECHNOLOGY SPECIALIST Visits 1 Progress Note Due 04/30/25 Precautions Precautions none OP-PT Subjective Patient Comments Patient Comments Pt reports having flare up in mid and low back today, unsure why. Therapeutic Exercises Supine Exercises over foam roller Supine Exercise Name added to HEP: scap retraction pnfree range, FF, HABD, 1 /2 X, W<>Y Side bilateral Resistance AROM Equipment Used hands on lap scap traction, to uncomfortable pec stretch/lat sternum (hold) Reps/Minutes 10 reps each Comments cued lower ribcage/PPT, lat. sternum/ribcage/scapular complex mov't gentle diaphragmatic breathing Supine Exercise Name for UT tension and pain guarding Equipment Used biofeedback hand on chest and on belly Reps/Minutes 3' Comments between chin tucks chin tucks Supine Exercise Name reviewed Equipment Used w and wo single pillow Reps/Minutes x10 w/ breathwork Comments cues bring ears back over shoulders, painfree Standing Exercises wall posture Standing Exercise verbal review, discussion folded towel behind head if Name needed neutral spine Comments review scap setting and chin retraction, painfree range (no LB arch) Other Exercises Self STMs Other Exercise Name see manual and selfcare (neck, ribcage with breath MWM and STMs) Manual Therapy Treatment Consent Patient gave verbal Yes consent for manual treatment Soft Tissue Mobilization lateral sternum, ribcage intercostals Body Location Bilateral: lateral sternum pec, intercostals, superior/ inferior clavicle Mobilization Type Myofascial Release,Sustained Pressure,Other Intensity/Depth Superficial Body Position Hooklying Comments very light/gentle broad pressure with ed self application MF glides and gentle sustained pressure with breath (MWM) cervical spine Body Location SCM, subocc., Scalenes, platymus, subclav, gentle CS tract (discussed self) Mobilization Type Myofascial Release,Rolling,Sustained Pressure,Other Intensity/Depth Moderate Body Position Supine Comments Bilateral: gentle STMs glides and MWM with head nods/ turns, ed self application Self-Care/Home Management Treatment Education Patient Education Body Mechanics,Home Exercise Program,Joint Protection, Pain Management,Posture Other Education ed goals, core stab with ADLs, self STMs and MWM breath , added hooklying over foam roller breath scap set and UE AROM - good response. Not pec stretch at this time due to irritation lateral sternum modified gentle range over foam roller if ok as in PT today and scapular AROM, might add TB resistance in future if toleranted and beneficial. Modalities for comfort CP vs MHP. Physical Therapy Assessment Goals Three Impairment lack of current HEP Short Term Goal (STG patient demonstrates compliance with basic HEP CORE ) stabilization 04/30/25: cues for lower ribcage toward table/roller, with TA draw in, scap retraction stabilize spine for all activities needed. . STG Duration 6 weeks progressing 04/30/25 Two Impairment patient reports pain Short Term Goal (STG low back and SI pain reduces 50% ) 04/30/25: 10 % reduction going up stair case. Not as much tightness and nerve pain. STG Duration 6 weeks update 04/30/25 One Impairment SI belt dependent Short Term Goal (STG patient is able to walk 1 mile, without need of SI ) locking belt 04/30/25: hasnt needed to use SI belt for all activities , only dog walk or clean house grain picker things on floor chores but family helping what she can't. Doesn;t need to sleep wih it on. Using body mechanics. STG Duration 6 weeks progressing 04/30/25 Assessment Summary Assessment Pt good response to manual, education for carryover application STMs and MWM breath for ribcage and soft tissue mobility. Incorporated spinal alignment with AROM over foam roller with awareness no pain reports at lateral sternum as in PT. Continue per previous tx HEP . Modalities for comfort CP vs MHP. Physical Therapy Plan Frequency and Duration Frequency of 1x/Week Treatment Duration of 12 treatment (weeks) Plan of Care Start 03/17/25 Date Plan of Care End 06/17/25 Date Therapeutic Interventions Therapeutic Home Exercise Program,Joint Mobilizations,Manual Interventions Therapy,Neuromuscular Re-education,Orthotic/Prosthetic Management,Patient/Caregiver Education,Self-Care/Home Management,Soft Tissue Mobilization,Taping,Therapeutic Activities,Therapeutic Exercises Modalities Cold Pack/Ice Massage,Electric Stimulation,Hot Packs, Ultrasound Next Visit Focus/Plan Next Note Type Progress Note Next Visit Plan PN by PT next tx. REcheck response to manual/self ed and use ROM Over foam roller and previous instruction HEP: CORE stabilization program, emphasis on activation of hamstrings, inhibition of para spinals primary PT: ANGUS education/training
--- NOTE | 2025-05-05 16:58 | PT.OPPN ---
Current Diagnoses Cervicalgia (05/05/25) Dorsalgia, unspecified (05/05/25) Physical Therapy Progress Note PT OP: Cervical/Upper Extremity Start: 04/30/25 12:43 Freq: Status: Active Protocol: Document 05/05/25 16:25 KW (Rec: 05/05/25 16:58 KW Laptop) Out-Patient Physical Therapy Visit Information Visit Information Visit Type Progress Note Visit Start Time 16:15 Visit Stop Time 16:55 Visit Number 7 Number of AUTOMOTIVE TIRE WORKER Visits 1 Progress Note Due 06/04/25 Precautions Precautions none OP-PT Subjective Patient Comments Patient Comments saw . started on 3mo of [place]am had a flare up - improved with chiro and deep tissue release. has a joint in Mid back that won't budge per chiro, too tight OP-PT Pain Assessment Location spine Pain Location SI joints, lower back, upper back between shoulder Details blades Pain Intensity 4 Scale Used Numeric (0 - 10) Description Aching,Burning,Cramping,Dull,Pinching,Pulling,Sharp, Spasm Frequency Frequent Pain Alleviating Cold,Heat,Medication,Lying Supine Factors Pain Aggravating Changing Position,ADL's,Activity,Exercise,Lifting, Factors Coughing Comments Pain Comments improved with ice picks up new Rx today Therapeutic Exercises Supine Exercises over foam roller Supine Exercise Name scap retraction pnfree range, FF, HABD, 1/2 X, W<>Y Side bilateral Resistance AROM Equipment Used hands on lap scap traction, to uncomfortable pec stretch/lat sternum (hold) Reps/Minutes 10 reps each Comments cued lower ribcage/PPT, lat. sternum/ribcage/scapular complex mov't gentle diaphragmatic breathing Supine Exercise Name for UT tension and pain guarding Equipment Used biofeedback hand on chest and on belly Reps/Minutes 3' Comments between chin tucks chin tucks Supine Exercise Name reviewed Equipment Used w and wo single pillow Reps/Minutes x10 w/ breathwork Comments cues bring ears back over shoulders, painfree bent knee fall outs Supine Exercise Name alt R/L Side bilateral Equipment Used monitoring TrA medial to B ASIS Reps/Minutes 3 x1 min each Comments cues for TrA, breathwork, slower pacing supine ball series Supine Exercise Name supine hamstring curls, LTR, bridge Side bilateral Reps/Minutes 10-20 eac Comments cues for coordinated breathing CORE stabilization Supine Exercise Name level 1 stabilization, cues for rib positioning, IO/TA recruitment, Side bilateral Equipment Used monitored TrA medially to ASIS, ext obliques compensation w breath Comments wo use of B UE tubing pull to activate CORE IO/TA -SL march too challenged Sitting Exercises ball roll outs Sitting Exercise seated on bench, physioball roll outs - held due to Name flexion Equipment Used physioball - large Comments with coordinated breath, para spinal inhibition Standing Exercises wall posture Standing Exercise verbal review, discussion folded towel behind head if Name needed neutral spine Comments review scap setting and chin retraction, painfree range (no LB arch) Other Exercises Self STMs Other Exercise Name see manual and selfcare (neck, ribcage with breath MWM and STMs) Self-Care/Home Management Treatment Education Patient Education Body Mechanics,Home Exercise Program,Joint Protection, Pain Management,Posture Other Education ed: YOGA with [employer] for LBP YOGA for pelvic floor YOGA for neck pain Physical Therapy Assessment Goals Three Impairment lack of current HEP Short Term Goal (STG patient demonstrates compliance with basic HEP CORE ) stabilization 04/30/25: cues for lower ribcage toward table/roller, with TA draw in, scap retraction stabilize spine for all activities needed. . STG Duration 6 weeks progressing 04/30/25 Two Impairment patient reports pain Short Term Goal (STG low back and SI pain reduces 50% ) 04/30/25: 10 % reduction going up stair case. Not as much tightness and nerve pain. 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 Doesn;t need to sleep wih it on. Using body mechanics. STG Duration 6 weeks progressing 04/30/25 Assessment Summary Assessment moving better, less pain, able to add thera-band. Anticipate Meloxicam will be very advantageous Physical Therapy Plan Frequency and Duration Frequency of 1x/Week Treatment Duration of 12 treatment (weeks) Plan of Care Start 03/17/25 Date Plan of Care End 06/17/25 Date Next Visit Focus/Plan Next Note Type Treatment Note Next Visit Plan instruction HEP: CORE stabilization program, emphasis on activation of hamstrings, inhibition of para spinals primary PT: ANGUS education/training
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
--- NOTE | 2025-05-13 12:34 | PT.OTN ---
Current Diagnoses Cervicalgia (05/13/25) Dorsalgia, unspecified (05/13/25) Physical Therapy Treatment Note PT OP: Cervical/Upper Extremity Start: 04/30/25 12:43 Freq: Status: Active Protocol: Document 05/13/25 11:43 NBM (Rec: 05/13/25 12:34 NBM Laptop) Out-Patient Physical Therapy Visit Information Visit Information Visit Type Treatment Note Visit Start Time 11:38 Visit Stop Time 12:18 Visit Number 9 Number of GRADER MARKER Visits 3 Progress Note Due 06/04/25 Precautions Precautions none OP-PT Subjective Patient Comments Patient Comments Malina reports she has soreness in mid back that feels like microtears which she first noticed yesterday morning. She's working longer hours and fell asleep in 4 yo's bed last night in position. Pain 5/10 right now but was higher last night and kept her from falling asleep right away, she probably should have iced. She adjusted Lean-right stool down so she can keep pelvis neutral for sitting, and has been doing lots of position changes and incorporating ex's in with children playing. Gym Equipment Therapeutic Ball 55 cm Exercise Details 1# DB Ramirez Ball Size/Color red Body Position Prone Reps/Duration x12 ea Comments -Pt demos personal HEP: W's, Ext, OH press goal post to OH flex. -Pt encouraged to perform HEP with scap setting throughout: Ext/A's, T's or else Ws when Ts too challenging; work towards Y's, don't do OH press d/t too challenging. Cues for eccentric control with breath . -Pec stretch W and T 30s ea - positive feedback response. Therapeutic Exercises Prone Exercises cat/cow Reps/Minutes x8 Comments cat to neutral lumbar spine only, painfree. Manual Therapy Treatment Consent Patient gave verbal Yes consent for manual treatment Soft Tissue Mobilization thoracic Body Location B paraspinals, rhomboids, MT, LT, R Lat Mobilization Type Cross-Friction,Rolling,Sustained Pressure,Trigger Point Release Intensity/Depth Moderate Body Position Prone Comments LEs supported on pillow. w/ breathwork and FM. Levator Scap Body Location R>L LS and UT Mobilization Type Rolling,Sustained Pressure,Other Intensity/Depth Moderate Body Position Prone Comments LEs supported on pillow Self-Care/Home Management Treatment Education Patient Education Body Mechanics,Home Exercise Program,Joint Protection, Pain Management,Posture Other Education Discussion with pt re: changes made to home desk set up and Lean-right stool with attention to sitting posture . Pt reminded not to correct posture with thoracolumbar extension, which may have contributed to pt's increased pain in this area today. Physical Therapy Assessment Goals Three Impairment lack of current HEP Short Term Goal (STG patient demonstrates compliance with basic HEP CORE ) stabilization 04/30/25: cues for lower ribcage toward table/roller, with TA draw in, scap retraction stabilize spine for all activities needed. . STG Duration 6 weeks progressing 04/30/25 Two Impairment patient reports pain Short Term Goal (STG low back and SI pain reduces 50% ) 04/30/25: 10 % reduction going up stair case. Not as much tightness and nerve pain. STG Duration 6 weeks update 04/30/25 One Impairment SI belt dependent Short Term Goal (STG patient is able to walk 1 mile, without need of SI ) locking belt 04/30/25: hasnt needed to use SI belt for all activities , only dog walk or clean house crab picker things on floor chores but family helping what she can't. Doesn;t need to sleep wih it on. Using body mechanics. STG Duration 6 weeks progressing 04/30/25 Assessment Summary Assessment Malina presents with 5/10 mid-back pain around thoracolumbar junction which improves to 4/10 by end of session. Treatment focus on pain management with manual therapy, posterior chain strengthening w/ breathwork and pectoralis stretching. Her personal HEP prone on ball is reviewed and revised based on pt's current symptoms and form. Pt unable to ice end of session today and encouraged to ice at home. Physical Therapy Plan Frequency and Duration Frequency of 1x/Week Treatment Duration of 12 treatment (weeks) Plan of Care Start 03/17/25 Date Plan of Care End 06/17/25 Date Therapeutic Interventions Therapeutic Home Exercise Program,Joint Mobilizations,Manual Interventions Therapy,Neuromuscular Re-education,Orthotic/Prosthetic Management,Patient/Caregiver Education,Self-Care/Home Management,Soft Tissue Mobilization,Taping,Therapeutic Activities,Therapeutic Exercises Modalities Cold Pack/Ice Massage,Electric Stimulation,Hot Packs, Ultrasound Next Visit Focus/Plan Next Note Type Treatment Note Next Visit Plan instruction HEP: CORE stabilization program, emphasis on activation of hamstrings, inhibition of para spinals primary PT: ANGUS education/training
--- NOTE | 2025-05-18 14:46 | PT.OTN ---
Current Diagnoses Cervicalgia (05/18/25) Dorsalgia, unspecified (05/18/25) Physical Therapy Treatment Note PT OP: Cervical/Upper Extremity Start: 04/30/25 12:43 Freq: Status: Active Protocol: Document 05/18/25 14:06 KW (Rec: 05/18/25 14:46 KW Laptop) Out-Patient Physical Therapy Visit Information Visit Information Visit Type Treatment Note Visit Start Time 13:45 Visit Stop Time 14:25 Visit Number 10 Number of MONEY EXAMINER Visits 3 Progress Note Due 06/04/25 Precautions Precautions none OP-PT Subjective Patient Comments Patient Comments wants to get a ball to sit on at home feels better deep tissue gives the best relief really wants to continue with PT has been paying a co pay but PIP is being billed Cardio Equipment Treadmill Duration (Minutes) 4 Speed 2.5 Incline 0 Other cues for neutral spine, equal step length Gym Equipment Therapeutic Ball 55 cm Exercise Details 1# DB Ramirez Ball Size/Color red Body Position Prone Reps/Duration x12 ea Comments -Pt demos personal HEP: W's, Ext, OH press goal post to OH flex. -Pt encouraged to perform HEP with scap setting throughout: Ext/A's, T's or else Ws when Ts too challenging; work towards Y's, don't do OH press d/t too challenging. Cues for eccentric control with breath . -Pec stretch W and T 30s ea - positive feedback response. Sport Cord green Exercise Details slow forward walk with gluteal activation emphasis Cord/Resistance green Reps/Duration 6x Therapeutic Exercises Supine Exercises over foam roller Supine Exercise Name scap retraction pnfree range, FF, HABD, 1/2 X, W<>Y Side bilateral Resistance AROM, Lvl 3 Tb Equipment Used hands on lap scap traction, to uncomfortable pec stretch/lat sternum (hold) Reps/Minutes 10 reps each w/ breathwork and TrA Comments good set up- occ cues TrA/breath. LUE D2 flex dc'd d/t L Lev Scap pn w/comp diaphragmatic breathing Supine Exercise Name for UT tension and pain guarding Equipment Used biofeedback hand on chest and on belly Reps/Minutes 3' Comments between chin tucks chin tucks Supine Exercise Name reviewed Equipment Used w and wo single pillow Reps/Minutes x10 w/ breathwork Comments cues bring ears back over shoulders, painfree bent knee fall outs Supine Exercise Name alt R/L Side bilateral Equipment Used monitoring TrA medial to B ASIS Reps/Minutes 3 x1 min each Comments cues for TrA, breathwork, slower pacing supine ball series Supine Exercise Name supine hamstring curls, LTR, bridge Side bilateral Reps/Minutes 10-20 eac Comments cues for coordinated breathing CORE stabilization Supine Exercise Name level 1 stabilization, cues for rib positioning, IO/TA recruitment, Side bilateral Equipment Used monitored TrA medially to ASIS, ext obliques compensation w breath Comments wo use of B UE tubing pull to activate CORE IO/TA -SL march too challenged Prone Exercises cat/cow Reps/Minutes x8 Comments cat to neutral lumbar spine only, painfree. Sitting Exercises ball roll outs Sitting Exercise seated on bench, physioball roll outs - held due to Name flexion Equipment Used physioball - large Comments with coordinated breath, para spinal inhibition Standing Exercises wall posture Standing Exercise emphasis on maintaining posture off wall: 1. wall Name posture 2. PPT>squats Reps/Minutes 1. 2' 2. x10 ea w/ focus on maintaining PPT on wall Comments review scap setting and chin retraction, painfree range (no LB arch) Other Exercises Self STMs Other Exercise Name see manual and selfcare (neck, ribcage with breath MWM and STMs) Therapeutic Activity Therapeutic Activity Sitting ergonomics Name Edu for posture and simulation of home sit to stand desk set up. Comments 1. Finding neutral lumbar spine in sitting. Tall sitting without extension at thoracolumbar junction. 2. Lean Right stool (no back support) vs standard stool - caution to avoid sacral sitting in Lean right and to use lumbar support in regular stool as needed without over reliance to improve core recruitment. 3. 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 Transfers: sitting EOB<>supine Comments Pt i/s in log roll method and activation of TrA w/ exhalation for improved control with positional changes . Lifting mechanics Name Demos lifting ~40 lb child from waist height in mini squat staggered stance Comments 30 lb ankle weights wrapped around two pillows at waist height: I/s pt in wider NYASIA, toes pointing towards child, TrA activation, and exhalation with lift x2 sleeping ergonomics Name s/l Demos fwd head posture, rounded shoulders and UT overactivation Comments I/s pt in c-sp alignment, and scapular setting with front pillow for shoulder support. Physical Therapy Assessment Goals Three Impairment lack of current HEP Short Term Goal (STG patient demonstrates compliance with basic HEP CORE ) stabilization 04/30/25: cues for lower ribcage toward table/roller, with TA draw in, scap retraction stabilize spine for all activities needed. . STG Duration 6 weeks progressing 04/30/25 Two Impairment patient reports pain Short Term Goal (STG low back and SI pain reduces 50% ) 04/30/25: 10 % reduction going up stair case. Not as much tightness and nerve pain. STG Duration 6 weeks update 04/30/25 One Impairment SI belt dependent Short Term Goal (STG patient is able to walk 1 mile, without need of SI ) locking belt 04/30/25: hasnt needed to use SI belt for all activities , only dog walk or clean house brain picker things on floor chores but family helping what she can't. Doesn;t need to sleep wih it on. Using body mechanics. STG Duration 6 weeks progressing 04/30/25 Assessment Summary Assessment continues to show nice improvement in CORE stabilization, posture awareness, positioning stress at home and with work is high but pain is improving debbie with new medication from MD Physical Therapy Plan Frequency and Duration Frequency of 1x/Week Treatment Duration of 12 treatment (weeks) Plan of Care Start 03/17/25 Date Plan of Care End 06/17/25 Date Next Visit Focus/Plan Next Note Type Treatment Note Next Visit Plan instruction HEP: CORE stabilization program, emphasis on activation of hamstrings, inhibition of para spinals primary PT:
--- NOTE | 2025-06-10 11:10 | PT.OPDS ---
Current Diagnoses Cervicalgia (05/18/25) Dorsalgia, unspecified (05/18/25) Visit Care Team Role Provider Type Aracelis Guzman MD Attending Provider Physician Family Provider Primary Care Provider Referring Provider Specialty: Family Practice Obstetrics Address: [address] [place] [address], [id number] Email: [email or web address] Visit Number Visit Number 10 Discharge Summary PT OP: Cervical/Upper Extremity Start: 04/30/25 12:43 Freq: Status: Active Protocol: Document 06/10/25 11:08 KJ (Rec: 06/10/25 11:09 KJ [id number]) Out-Patient Physical Therapy Visit Information Visit Information Visit Type Discharge Summary Visit Note Initial eval 03/17/25. Attended total 9 treatment sessions. Final session 05/18/25. Pt demonstrated HEP with cuing, reported decreased pain, best results from deep tissue work, reported decreased use of SI belt, and less pain with new pain meds.
== END 2025-06-14 10:24 | disposition home or self-care (01) ==
LOC: PHYS 13:45
PROVIDERS: Family Provider Student in an Organized Health Care Education/Training Program; PCP Student in an Organized Health Care Education/Training Program; Referring Provider Student in an Organized Health Care Education/Training Program; Visit Provider Student in an Organized Health Care Education/Training Program
DX: M54.9 Dorsalgia, unspecified (principal); M54.2 Cervicalgia
CPT/HCPCS: 97110; 97112; 97116; 97140; 97163; 97530; 97535

== ENCOUNTER → 2025-08-04 10:32 | Outpatient (CLI) | payer BC, SELFPAY ==
--- NOTE | 2025-08-04 10:33 | DI.MG.S_ITS ---
MM screening mammo BI: 08/04/2025. BI-RADS: 1 CLINICAL: 45-year old female for bilateral screening mammogram. Tyrer-Cuzick lifetime risk of 11.7%. No personal or first-degree family history of breast cancer. PRIOR EXAMS 01/23/2024, 11/22/2022. MAMMOGRAPHY TECHNIQUE: 2D and 3D (tomosynthesis) digital mammographic views obtained, with additional images as needed for full coverage. Current study was also evaluated with a Computer Aided Detection (CAD) system. DENSITY C. The breasts are heterogeneously dense, which may obscure small masses. MAMMOGRAPHY FINDINGS Bilateral: No suspicious mass, asymmetry, microcalcification, or other abnormality seen. IMPRESSION: * No evidence of malignancy. RECOMMENDATIONS Bilateral * Annual screening mammography. OVERALL ASSESSMENT CATEGORY BI-RADS-1: Negative. The [employer] recommends annual screening mammography beginning at age 40 for women with average risk of breast cancer. ELECTRONICALLY SIGNED: Kristie Valderrama M.D. on 08/04/2025 at 02:56:52 PM PT Interpreting Station ID: [id number]
== END ==
LOC: MAMMO 10:33
PROVIDERS: Family Provider Student in an Organized Health Care Education/Training Program; PCP Student in an Organized Health Care Education/Training Program; Referring Provider Student in an Organized Health Care Education/Training Program; Visit Provider Student in an Organized Health Care Education/Training Program
DX: Z12.31 Encounter for screening mammogram for malignant neoplasm of breast (principal); R92.333 Mammographic heterogeneous density, bilateral breasts
CPT/HCPCS: 77063; 77067